=== PATIENT | male | born 1970 | race Caucasian/White ===

== ENCOUNTER 2023-03-24 23:29 | Inpatient (IN) | payer MEDICARE, MEDICAID, SELFPAY ==
--- OUTSIDE RECORDS SUMMARY | 2023-03-24 23:34 | XMS_ITS | Continuity of Care Document ---
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 Name Role Phone Not on Staff, PCP Primary Care Physician Unavail able Encounter [facility] [place] Date(s): 03/07/23 - 03/07/[address] [address]- Encounter Diagnosis Fall in shower(Final) - 03/07/23 Back pain(Final) - 03/07/23 Discharge Disposition: A-D/C Home Attending Physician: Leobardo Em MD Admitting Physician: Leobardo Em MD Referring Physician: Not on Staff, Referring MD Allergies, Adverse Reactions, Alerts Substance Reaction Severity Status Haldol Active Immunizations Given and Recorded Vaccine Date Status Refusal Reason influenza virus vaccine, inactivated 03/04/18 Marcello rded influenza virus vaccine, inactivated 12/12/15 Marcello rded influenza virus vaccine, inactivated 03/22/15 Marcello rded influenza virus vaccine, inactivated 03/07/14 Marcello rded influenza virus vaccine, inactivated 03/01/13 Marcello rded influenza virus vaccine, inactivated 01/14/11 Marcello rded tetanus/diphtheria/pertussis, acel(Tdap) 03/05/10 Recorded Medications Cymbalta 20 mg oral enteric coated capsule 1 capsule = 20 mg, By Mouth, 2 times a day, # 60 capsule, 5 Refills, Maintenance, 02/13/23 2:06:00 EST, EC Capsule, Partial fill upon patient request if the prescription is for a schedule II opioid drug. Start Date: 02/13/23 Status: Ordered diazepam 2 mg oral tablet 2 mg, 1, tablet, By Mouth, Daily, Refills 0, Maintenance, 01/06/23 22:08:00 EDT, Partial fill upon patient request if the prescription is for a schedule II opioid drug. Start Date: 01/06/23 Status: Ordered MorPHINE Inj 4 mg, Injection, IV Push Slowly, Every 5 minutes for 3 doses/times, PRN for Pain , Moderate, and SBP greater than 100, Routine, 03/07/23 6:18:00 EST, Stop date Limited # of times Start Date: 03/07/23 Stop Date: 03/07/23 Status: Discontinued multivitamin Therapeutic Multiple Vitamins oral tablet 1 tablet, By Mouth, Daily, # 30 tablet, 0 Refills, Maintenance, 03/25/22 11:18:00 EST, Tablet, [facility] #[id number], Partial fill upon patient request if the prescription is for a schedule II opioid drug., 1 tablet By Mouth Daily,x30 days, 188,... Start Date: 03/25/22 Stop Date: 04/24/22 Status: Ordered OxyCONTIN 10 mg oral tablet, extended release 10 mg, 1, tablet, By Mouth, Every 12 hours, # 28 tablet, Refills 0, Tot. Refills 0, Maintenance, 03/25/22 11:18:00 EST, Route to Pharmacy Electronically, [facility] #[id number], Partial fill upon patient request if the prescription is for a sched... Start Date: 03/25/22 Stop Date: 04/08/22 Status: Ordered SEROquel 100 mg oral tablet 100 mg, 1, tablet, By Mouth, Daily at bedtime, Refills 0, Maintenance, 02/14/23 8:45:00 EST, Partial fill upon patient request if the prescription is for a schedule II opioid drug. Start Date: 02/14/23 Status: Ordered zolpidem 10 mg oral tablet 1 tablet = 10 mg, By Mouth, Daily at bedtime, PRN as needed for insomnia, # 12 tablet, 0 Refills, Maintenance, 01/07/23 0:35:00 EDT, Tablet, [facility] #[id number], Partial fill upon patient request if the prescription is for a schedule II opioid... Start Date: 01/07/23 Status: Ordered Problem List Condition Confirmation Course Effective Dates Status Health St atus Informant Chronic back pain Confirmed Active Agitation Confirmed Active Parkinson disease Confirmed Active Trauma and stressor-related disorder Confirmed Active Suicidal ideation Confirmed 2017 Active Results Radiology Reports * Exam Date Time Procedure Performing Provider Status 03/07/23 8:[address] Thoracic Spine W/O Contrast Ashia Sandy; Auth (Verified) Notes: (CT Thoracic Spine W/O Contrast) Reason For Exam: Spine fracture, thoracic, traumatic;Other: RESULT: CT Thoracic Spine W/O Contrast CT Thoracic Spine W/O Contrast INDICATION: Fall in shower, hitting back. Has history of back injury. With new urinary incontinenceand L leg tingling; Reason: Spine fracture, thoracic, traumatic; Clinical Question(s): Fracture Dislocation TECHNIQUE: Noncontrast CT of the thoracic spine was performed. Bone and soft tissue algorithms werereconstructed along with coronal and sagittal computations. Weight-based protocol using automatic tube modulation was used to optimize exposure parameters. RADIATION DOSE PARAMETERS: CTDIvol Body: 12.40 mGy, DLP Body: 510 mGy*cm. COMPARISON: MRI thoracic spine 03/07/[address] abdomen/pelvis 03/30/2023 FINDINGS: Spine: No acute fractures or bone lesion. Mild chronic compression fracture of T6 vertebral body. The alignment is maintained. Mild multilevel degenerative changes of the visualized spine. Soft tissues: No acute abnormality in the paravertebral soft tissues. Mild curvilinear bibasilar atelectasis. Paraseptal emphysematous changes in both upper lobes. Minimal amount of residual contrast is seen within the bilateral collecting systems likely related to prior IV contrast administration for the MRI scan. IMPRESSION: Mild degenerative changes of the thoracic spine without evidence of an acute fracture. I have personally reviewed the images and I agree with this report. WSN: [id number] Ordering Physician: Michelle Wynne Dictated By: Courtney Segura DO Dictated Date/Time: 03/07/23 9:21 am Reviewed By: Robyn Schwab MD Signed By: Robyn Schwab MD Signed Date/Time: 03/07/23 9:26 am Transcribed By: DALI Transcribed Date/Time: 03/07/23 9:11 am * Exam Date Time Procedure Performing Provider Status 03/07/23 7:48 AM MRI Thoracic Spine W+W/O Contrast Soraida James; Auth (Verified) Notes: (MRI Thoracic Spine W+W/O Contrast) Reason For Exam: Cauda Equina Syndrome RESULT: MRI Thoracic Spine W+W/O Contrast MRI Thoracic Spine W+W/O Contrast INDICATION: Hx of Present Illness: fall in shower, hitting back. has history of back injury. how with new urinary incontinence and L leg tingling; Reason: Cauda Equina Syndrome; Clinical Question(s):Cord Cauda Equina Compression; Order Comment: Please see Reference Text for complete list of contraindications Cord/Cauda Equina Compression TECHNIQUE: MRI of the thoracic spine was performed with and without intravenous contrast utilizing sagittal T1, sagittal T2, sagittal STIR, axial T1, and axial T2-weighted sequences, and post-contrast sagittal T1 and axial T1-weighted sequences. 14 mL of Clariscan was administered intravenously. COMPARISON: Thoracic spine x-rays, 09/13/2020. Chest x-ray, 03/07/2023. FINDINGS: This exam is mildly degraded by motion. LOCALIZER: Whole spine sagittal T2 sequence was obtained. Alignment and curvature in the cervical spine is normal with high-grade canal stenosis or evidence of cord compression. In the lumbar spine postoperative changes are seen at L5-S1 from anterior fusion. There is no significant canal stenosis in the lumbar spine. ALIGNMENT, VERTEBRAE, MARROW, AND DISCS: There is mild chronic compression deformity of the superior endplate of T1 and T5. Remaining vertebral body heights are preserved. There is no subluxation. There is mild multilevel disc space narrowing. Benign hemangiomas are seen in the T4, T9, and T11 vertebral bodies. CORD: The thoracic cord is normal in signal and contour. There is no abnormal enhancement. PARASPINAL TISSUES: Surrounding thoracic soft tissues are unremarkable. There is a 1 cm left upper pole renal cyst noted. FINDINGS BY LEVEL: No significant central stenosis or neural foraminal narrowing is seen at any level in the thoracic spine. IMPRESSION: 1. No evidence of acute traumatic injury in the thoracic spine. There is no significant canal stenosis. Cord signal is normal throughout, and there is no abnormal enhancement. 2. Mild chronic T1 and T5 compression fractures are seen without retropulsion. WSN: [id number] Ordering Physician: Michelle Wynne Dictated By: Gia Cedeno MD Dictated Date/Time: 03/07/23 8:04 am Reviewed By: Gia Cedeno MD Signed By: Gia Cedeno MD Signed Date/Time: 03/07/23 8:04 am Transcribed By: DALI Transcribed Date/Time: 03/07/23 7:51 am * Exam Date Time Procedure Performing Provider Status 03/07/23 5:05 AM Chest 2 Views Fronta l and Lat Lainey Washington; Auth (Verified) Notes: (Chest 2 Views Frontal and Lat) Reason For Exam: Other: RESULT: Chest 2 Views Frontal and Lat Chest 2 Views Frontal and Lat INDICATION/CLINICAL QUESTION: Fell at home hitting back. Now most multiple posttraumatic complaints. TECHNIQUE: Frontal and lateral views of the chest. COMPARISON: 02/19/2023. FINDINGS: LINES AND TUBES: None. LUNGS AND PLEURA: RIGHT CHEST: The right lung is clear and there is no right effusion or pneumothorax. LEFT CHEST: The left lung is clear and there is no left effusion or pneumothorax. HEART, MEDIASTINUM AND JEFFREY: The heart is of normal size. The mediastinum and jeffrey are normal. BONES AND SOFT TISSUES: No acute bony abnormality. IMPRESSION: 1. No active disease in chest. WSN: [id number] Ordering Physician: Cyndy Brandon Dictated By: Camacho Ferrara MD Dictated Date/Time: 03/07/23 6:29 am Reviewed By: Camacho Ferrara MD Signed By: Camacho Ferrara MD Signed Date/Time: 03/07/23 6:29 am Transcribed By: DALI Transcribed Date/Time: 03/07/23 6:29 am Vital Signs Most recent to oldest [Reference Range]: 1 2 3 Oxygen Saturation [94-100 %] 98 % (03/07/23 11:30 AM) 100 % (03/07/23 8:53 AM) 98 % (03/07/23 8:24 AM) Pulse Rate [55-90 bpm] 71 bpm (03/07/23 11:30 AM) 75 bpm (03/07/23 8:53 AM) 78 bpm (03/07/23 4:35 AM) Blood Pressure [90-138/55-84 mm Hg] 125/77mm Hg (03/07/23 11:30 AM) 132/95mm Hg (03/07/23 8:53 AM) 148/104mm Hg *H* (03/07/23 4:35 AM) Respiratory Rate [16-30 br/min] 12 br/min *L* (03/07/23 11:30 AM) 16 br/min (03/07/23 8:53 AM) 18 br/min (03/07/23 8:24 AM) Temperature [96.8-100.4 DegF] 97.7 DegF (03/07/23 3:25 AM) Mode of Delivery (Oxygen) Room air (03/07/23 11:30 AM) Room air (03/07/23 8:53 AM) Room air (03/07/23 8:24 AM) Blood pressure sites Arm, right (03/07/23 11:30 AM) Arm, right (03/07/23 8:53 AM) Arm, right (03/07/23 4:35 AM) Temperature Route Oral (03/07/23 3:25 AM) Social History Social History Type Response Smoking Status 5-9 cigarettes (betw een 1/4 to 1/2 pack)/day in last 30 days; Interested in cessation: No; Patient wants NRT during admission Yes entered on: 03/19/22 Sex Male Note * Alvarez May DO: PERFORM Event Display: Patient Education Leaflets Authored Date: Back Bruise (Contusion) ?? [id number] Back Bruise (Contusion) You have a bruise (contusion) on your back. There is swelling and some bleeding under the skin. Theskin may be a purple color. You may have muscle aching and stiffness in the area of the bruise. There are no broken bones. Bruises heal on their own, without further treatment. But pain and skin discoloration may take weeks or months to go away.?? Home care ??? Rest. Don't do any heavy lifting, strenuous exercise, or any activity that causes pain. ??? Ice the area to reduce pain and swelling. To make an ice pack, put ice cubes in a plastic bagthat seals at the top. Wrap the bag in a clean, thin towel. Don't put ice or an ice pack directly on your skin. Ice the injured area for 20 minutes every 1 to 2 hours while you're awake for the firstday. Keep using ice packs 3 to 4 times a day for the next 2 days Then use as needed to ease pain and swelling. ??? Take any prescribed pain medicine. If none was prescribed, take acetaminophen,??ibuprofen,??or naproxen??to control pain, unless you have health conditions that prevent taking these medicines. If you are unsure about medicines, ask your healthcare provider before you leave the hospital. ?? Follow-up care Follow up with your healthcare provider, or as advised. Call if you are not better in 1 to 2 weeks. ?? When to get medical care Call your healthcare provider for any of the following: ??? New pain or pain that gets worse ??? Increased swelling around the bruise ??? Pain spreading to 1 or both legs ??? Blood in your pee (urine) ??? Fever of 100.4??F (38??C) or higher, or as advised by your provider ??? Chills ?? Call 911 Call 911 right away if any of these occur: ??? New weakness or numbness in 1 or both legs ??? Loss of bowel or bladder control ??? Numbness inthe groin or genital area ?? Last Reviewed Date: 2022 ?? 9290-2930 [employer]. All rights reserved. This information is not intended as a substitute for professional medical care. Always follow your healthcare professional's instructions. ?? * Alvarez May DO: PERFORM Event Display: Patient Education Leaflets Authored Date: [id number] After a Fall ?? 253599am After a Fall You have had a fall today. That means that you slipped, tripped, or lost your balance. If your fallwas because of fainting or a seizure,??you might need other??tests. It is normal to feel sore and tight in your muscles and back the next day, and not just the musclesyou injured. Remember, all the parts of your body are connected, so while one area hurts now, the next day another may hurt. Also, when you injure yourself, it causes inflammation. This then causes the muscles to tighten up and hurt more. After the initial worsening symptoms, they should slowly improve over the next few days. Tell your healthcare provider if you have more severe pain. Even without a definite head injury, you can still get a concussion from your head suddenly jerkingforward, backward, or sideways when you fall. This is especially true if you have had concussions in the past. Concussions and even bleeding can still happen, especially if you had a recent injury ortake blood thinner medicine. It is not unusual to have a mild headache and feel tired and even nauseous or dizzy.?? Home care ??? Rest today and return to your normal activities when you are feeling back to normal. ??? If you were injured during the fall, follow the advice from your healthcare provider about how to care for your injury. ??? At first, don't try to stretch out the sore spots. If there is a strain,stretching may make it worse. Massage may help relax the muscles without stretching them. ??? Use an ice pack or cold compress on and off at the sore spots for 10 to 20 minutes at a time, as often asyou feel comfortable. This may help reduce the inflammation, swelling, and pain. ??? Know that if you have any scrapes (abrasions), they often heal within??10 days. Keep the scrapes clean while they start to heal. But an infection may happen even with correct care. So watch for early signs of infection (such as warmth, redness, or swelling). ?? Medicines ??? Talk with your healthcare provider before taking new medicines, especially if you have other health problems or are taking other medicines. ??? If you need anything for pain, use acetaminophen or ibuprofen, unless you were given a different pain medicine to use.??Talk with your healthcare provider before using these medicines if you: o Have chronic liver or kidney disease o Ever hada stomach ulcer or??gastrointestinal bleeding o Are taking blood-thinner medicines ??? Be careful if you are given prescription pain medicines, narcotics, or medicine for muscle spasms. They can makeyou sleepy and dizzy. And they can affect your coordination, reflexes, and judgment. Don't drive ordo work where you can hurt yourself when taking them. ?? Fall prevention ??? Fix, remove, or replace anything that caused your fall. ??? Make your home safeby keeping walkways clear of objects you could trip over. ??? Use nonslip pads under rugs. Don't use small??area rugs or throw rugs. ??? Don't walk in poorly lit areas. ??? Don't stand on chairs or wobbly ladders. ??? Be careful when reaching overhead or looking upward. This position can cause a loss of balance. ??? Be sure your shoes fit correctly, have nonslip bottoms, and are in good condition. ??? Be careful when going up and down curbs, and walking on uneven sidewalks. ??? If your balance is poor, think about using a cane or walker. ??? Stay as active as you can. Balance, flexibility, strength, and endurance all come from exercise. They all play a role in preventing falls. ??? If you have pets, know where they are before you stand up or walk so you don't trip over them. ??? Limit alcohol intake. Alcohol can cause balance problems and increase the risk for falls. ??? Use night-lights. ??? Have your eyes tested to be sure you are seeing well, even if you already wear glasses.? Follow-up Follow up with your healthcare provider, or as advised. If X-rays or CT scans were done, you will be told if there is a change in the reading, especially if it affects treatment. ?? Call 911 Call 911 if any of these happen: ??? Trouble breathing ??? Confusion ??? Trouble waking up ??? Fainting or loss of consciousness ??? Fast or very slow heart rate ??? Seizure ??? Trouble with speech or vision, weakness of an arm or leg ??? Trouble walking or talking, loss of balance, numbness or weakness on one side of your body, or facial droop ?? When to get medical advice Call your healthcare provider right away if any of these happen: ??? Repeated falls, including falls that seem to happen for no reason ??? Dizziness ??? Severe headache ??? Blood in vomit or stools (look black or red in color) ?? Last Reviewed Date: 2022 ?? 3070-7080 [employer]. All rights reserved. This information is not intended as a substitute for professional medical care. Always follow your healthcare professional's instructions. ?? * Alvarez May DO: PERFORM Event Display: Patient Education Leaflets Authored Date: [id number] Fall??Prevention ?? [id number] Fall??Prevention Falls often take place due to slipping, tripping, or losing your balance. Millions of people fall every year and injure themselves.??Among older adults in the [place] falls are the most common cause oftraumatic brain injuries. Every 20 minutes, an older adult dies from a fall. Here are ways to reduce your risk of falling again: ??? Think about your fall. Was there anything that caused your fall that can be fixed, removed, or replaced? Make your home safe by keeping walkways clear of objects you may trip over, such as electrical cords. ??? Use nonslip pads under rugs. Don't use area rugs orsmall throw rugs. ??? Use nonslip mats in bathtubs and showers. ??? Hang grab rails by the toilet and inside and outside the shower. ??? Install handrails and lights on staircases. The handrails should be on both sides of the stairs. ??? Use night lights. ??? Don't walk in poorly lit areas. ??? Don't stand on chairs or wobbly ladders. ??? Use care when reaching overhead or looking up.??This position can cause a loss of balance. ??? Be sure your shoes fit well, are in good condition, and have non slip bottoms.? Wear shoes both inside and outside of your home. Don't go barefoot or wear slippers. ??? Be cautious when going up and down stairs, curbs, and when walking on uneven sidewalks. ??? If your balance is poor, consider using a cane or walker. Talk with your healthcare provider abouthaving a balance assessment. ??? If your fall was related to alcohol use, stop or limit alcohol intake.??Ask your provider for help if you think you may overuse alcohol and can't stop. ??? If your fall was related to use of sleeping medicines, talk with your provider about this.??You may need to reduce your dosage at bedtime if you wake up during the night to go to the bathroom.? To reducethe need for nighttime bathroom trips: o Don't drink fluids for several hours before going to bed oEmpty your bladder before going to bed o Men can keep a urinal at the bedside ??? Stay as active asyou can. Balance, flexibility, strength, and endurance all come from exercise. They all play a rolein preventing falls. Ask your provider which types of activity are right for you. Try to do some type of exercise every day. ??? Get your eyes checked once a year or more often if your vision changes??? If you have pets, know where they are before you stand up or walk so you don't trip over them. ??? Go over all your medicines with a pharmacist or other provider. This is to see if any of them could make you more likely to fall. Have this type of medicine review at least once every year. ??? Ifyour provider advises a new medicine, ask if the side effects will affect your balance. ??? Don't move quickly from one position to another. For instance, don't stand up fast from sitting. This can cause dizziness and may lead to a fall. ??? Sit down when putting on pants, socks, and shoes. This will make you less likely to lose your balance and fall. ??? Always let your provider know if you havefallen since your last visit. ??? Contact your provider right away if you're having balance problems or falling more often. Last Reviewed Date: 2021 ?? 0080-9354 [employer]. All rights reserved. This information is not intended as a substitute for professional medical care. Always follow your healthcare professional's instructions. ?? Patient Care team information Care Team Personnel Name: Preethi Jaramillo RN Position: [facility] RN Member Role: Primary Care Nurse Name: Thaddeus Ni RN Position: [facility] RN Member Role: Primary Care Nurse Name: Nuria Reyna RN Position: [facility] RN Member Role: Primary Care Nurse Name: Yesica Carmen RN Position: [facility] RN Member Role: Primary Care Nurse Name: Not on Staff, PCP Position: [facility] Physician (General Medicine) Member Role: PCP Name: Adriano Duque RN Position: [facility] RN Member Role: Primary Care Nurse Name: Shamika Carpenter RN Position: [facility] RN Member Role: Primary Care Nurse Name: Leobardo Em MD Position: [facility] ED Medicine MD Member Role: Admitting Physician Address: Address: [address] [place] [address] [place] [address]- Name: Shavon Monroy RN Position: [facility] ED RN W/OE and Tasks Member Role: Patient Care Provider Name: Elza Pickett Position: [facility] ED [facility] Name: Alvarez May DO Position: [facility] Resident Member Role: ED Resident Address: Address: [address] [place] [address] [place] [address]- Care Team Related Persons Name: ALISIA PARISH Address: home [address], [place] Name: ALLEN PARISH Address: home [address] [place] [address]
--- OUTSIDE RECORDS SUMMARY | 2023-03-24 23:34 | XMS_ITS | Continuity of Care Document ---
Author Name Unknown Organization [facility] ter Address [address] [place] [id number] Care Team Providers Care Rpg Programmer Name Role Phone Not on Staff, PCP Primary Care Physician Unavail able Encounter [facility] [place] Date(s): 03/28/22 - 03/29/[address] [address]- Discharge Disposition: A-D/C Home Attending Physician: Joselyn Hinson MD Admitting Physician: John Denton MD Referring Physician: Not on Staff, Referring MD Allergies, Adverse Reactions, Alerts No Known Allergies Immunizations Given and Recorded Vaccine Date Status Refusal Reason influenza virus vaccine, inactivated 03/04/18 Marcello rded influenza virus vaccine, inactivated 12/12/15 Marcello rded influenza virus vaccine, inactivated 03/22/15 Marcello rded influenza virus vaccine, inactivated 03/07/14 Marcello rded influenza virus vaccine, inactivated 03/01/13 Marcello rded influenza virus vaccine, inactivated 01/14/11 Marcello rded tetanus/diphtheria/pertussis, acel(Tdap) 03/05/10 Recorded Not Given Vaccine Date Status Refusal Reason influenza virus vaccine, inactivated 1 03/21/22 No t Given Patient Refuses 1Result Comment: Pt. states he had it with a previous provider. Medications acetaminophen 325 mg oral tablet 650 mg, 2, tablet, By Mouth, Every 6 hours, PRN, for 14 days, /Headache, # 112 tablet, Refills 0, Tot. Refills 0, Acute 04/08/22 11:17:00 EST, Pain , Mild, 03/25/22 11:17:00 EST, Route to Pharmacy Electronically, [facility] #[id number], Partial f... Start Date: 03/25/22 Stop Date: 04/08/22 Status: Ordered diazepam 5 mg oral tablet 5 mg, 1, tablet, By Mouth, Daily, for 30 days, # 30 tablet, Refills 0, Tot. Refills 0, Acute 04/24/22 11:17:00 EST, 03/25/22 11:17:00 EST, Route to Pharmacy Electronically, [facility] #[id number], Partial fill upon patient request if the prescrip... Start Date: 03/25/22 Stop Date: 04/24/22 Status: Ordered lidocaine 5% topical film See Instructions, Topically Daily over bottom rib over left side abdomen. remove patches after 12 hours, # 16 patch, 0 Refills, Acute 04/08/22 11:18:00 EST, 03/25/22 11:18:00 EST, Patch, [facility] #[id number], Partial fill upon patient request... Start Date: 03/25/22 Stop Date: 04/08/22 Status: Ordered multivitamin Therapeutic Multiple Vitamins oral tablet 1 tablet, By Mouth, Daily, # 30 tablet, 0 Refills, Maintenance, 03/25/22 11:18:00 EST, Tablet, [facility] #[id number], Partial fill upon patient request if the prescription is for a schedule II opioid drug., 1 tablet By Mouth Daily,x30 days, 188,... Start Date: 03/25/22 Stop Date: 04/24/22 Status: Ordered Nicotine 2 mg gum = 2 mg, Chew, Every 15 minutes, PRN Other, for 2 week(s), cigarette craving, # 10 each, 0 Refills, Acute 04/08/22 11:18:00 EST, 03/25/22 11:18:00 EST, Gum, [facility] #[id number], Partial fill upon patient request if the prescription is for a vasyl... Start Date: 03/25/22 Stop Date: 04/08/22 Status: Ordered oxyCODONE 5 mg oral tablet 5 mg, 1, tablet, By Mouth, Every 4 hours, PRN, for 10 days, # 60 tablet, Refills 0, Tot. Refills 0,Acute 04/04/22 11:18:00 EST, Pain , Moderate, 03/25/22 11:18:00 EST, Route to Pharmacy Electronically, [facility] #[id number], Partial fill upon p... Start Date: 03/25/22 Stop Date: 04/04/22 Status: Ordered oxyCODONE 5 mg oral tablet 5 mg, Tablet, By Mouth, Every 4 hours, PRN for Pain , Severe, Routine, 03/29/22 6:12:00 EST Start Date: 03/29/22 Stop Date: 03/29/22 Status: Discontinued OxyCONTIN 10 mg oral tablet, extended release 10 mg, 1, tablet, By Mouth, Every 12 hours, # 28 tablet, Refills 0, Tot. Refills 0, Maintenance, 03/25/22 11:18:00 EST, Route to Pharmacy Electronically, [facility] #[id number], Partial fill upon patient request if the prescription is for a sched... Start Date: 03/25/22 Stop Date: 04/08/22 Status: Ordered QUEtiapine 100 mg oral tablet 100 mg, 1, tablet, By Mouth, Daily at bedtime, # 30 tablet, Refills 0, Tot. Refills 0, Maintenance,03/25/22 11:20:00 EST, Route to Pharmacy Electronically, [facility] #[id number], Partial fill upon patient request if the prescription is for a sc... Start Date: 03/25/22 Stop Date: 04/24/22 Status: Ordered QUEtiapine 50 mg oral tablet 1 tablet = 50 mg, By Mouth, 2 times a day, # 60 tablet, 0 Refills, Maintenance, 03/25/22 11:22:00 EST, Tablet, [facility] #[id number], Partial fill upon patient request if the prescription is for a schedule II opioid drug., 188, cm, 03/25/22 8:21... Start Date: 03/25/22 Stop Date: 04/24/22 Status: Ordered SEROquel 25 mg oral tablet 25 mg, 1, tablet, By Mouth, 3 times a day, PRN, # 90 tablet, Refills 0, Tot. Refills 0, Maintenance, Anxiety, 03/25/22 11:20:00 EST, Route to Pharmacy Electronically, [facility] #[id number], Partial fill upon patient request if the prescription i... Start Date: 03/25/22 Stop Date: 04/24/22 Status: Ordered Problem List Condition Confirmation Course Effective Dates Status Health St atus Informant Chronic back pain Confirmed Active Agitation Confirmed Active Parkinson disease Confirmed Active Trauma and stressor-related disorder Confirmed Active Suicidal ideation Confirmed 2017 Active Results Radiology Reports * Exam Date Time Procedure Performing Provider Status 03/28/22 10:[address] Head/Brain W/O Contrast Nathalie Streeter; Madie (Verified) Notes: (CT Head/Brain W/O Contrast) Reason For Exam: Behavior Problem RESULT: CT Head/Brain W/O Contrast CT Head/Brain W/O Contrast Hx of Present Illness: AMS since d c from hospital per sig other, confusion and unsteadiness.; Reason: Behavior Problem; Clinical Question(s): Hematoma. TECHNIQUE: Noncontrast head CT using axial technique and reconstructed in axial and coronal planes.Weight-based protocol using automatic tube modulation was used to optimize exposure parameters. CTDIvol Head: 47.30 mGy, DLP Head: 772 mGy*cm. COMPARISON: 01/12/2022. FINDINGS: BRAIN and EXTRA-AXIAL SPACES: No parenchymal hemorrhage, midline shift or mass effect. Mario-white matter differentiation is well preserved. No acute infarct. Negative insular ribbon and hyperdense vessel signs. Ventricles, sulci and basilar cisterns are normal. There is a stable 1.7 cm arachnoid cyst in the posterior fossa, unchanged since at least 2018. Mild low-density white matter changes. No subarachnoid hemorrhage, subdural or epidural collections. CALVARIUM, SKULL BASE AND SOFT TISSUES: No fractures or suspicious bony lesions. The paranasal sinuses and mastoid air cells are clear. Visualized orbits and globes are intact. The extracranial soft tissues are unremarkable. IMPRESSION: No acute intracranial abnormality. I have personally reviewed the images and I agree with this report. WSN: [id number] Ordering Physician: Lani Hansen Dictated By: Cherrie Linda DO Dictated Date/Time: 03/28/22 10:55 p Reviewed By: Luli Urban MD Signed By: Luli Urban MD Signed Date/Time: 03/28/22 11:00 pm Transcribed By: DALI Transcribed Date/Time: 03/28/22 10:47 pm Vital Signs Most recent to oldest [Reference Range]: 1 2 3 Oxygen Saturation [94-100 %] 97 % (03/29/22 1:05 PM) 96 % (03/29/22 9:59 AM) 100 % (03/29/22 6:17 AM) Pulse Rate [55-90 bpm] 86 bpm (03/29/22 1:05 PM) 88 bpm (03/29/22 9:59 AM) 92 bpm *H* (03/29/22 6:17 AM) Blood Pressure [90-138/55-84 mm Hg] 111/93mm Hg (03/29/22 1:05 PM) 119/77mm Hg (03/29/22 9:59 AM) 118/72mm Hg (03/29/22 6:17 AM) Respiratory Rate [16-30 br/min] 18 br/min (03/29/22 1:05 PM) 18 br/min (03/29/22 10:02 AM) 18 br/min (03/29/22 6:17 AM) Temperature [96.8-100.4 DegF] 98.7 DegF (03/29/22 1:05 PM) 98.5 DegF (03/29/22 9:59 AM) 98.2 DegF (03/29/22 6:17 AM) Mode of Delivery (Oxygen) Room air (03/29/22 1:05 PM) Room air (03/29/22 9:59 AM) Room air (03/29/22 6:17 AM) Blood pressure sites Arm, right (03/29/22 1:05 PM) Arm, left (03/29/22 9:59 AM) Arm, right (03/29/22 6:17 AM) Temperature Route Oral (03/29/22 9:59 AM) Oral (03/29/22 6:17 AM) Oral (03/29/22 1:14 AM) Social History Social History Type Response Smoking Status 5-9 cigarettes (betw een 1/4 to 1/2 pack)/day in last 30 days; Interested in cessation: No; Patient wants NRT during admission Yes entered on: 03/19/22 Sex Admission evaluation note * Gee HARKINS, Vijay: PERFORM Event Display: Admission Note Authored Date: [id number] Patient: ??BOBBY ARMANDO ? Age:??51 Years?Sex:??Male?:??1970?? Chief Complaint/Reason for Consultation Altered mental status History of Present Illness Patient is a 51 years old male with past medical history of depression, Parkinson disease,??stress related disorder, anxiety??presented to ER with a chief complaint of altered mental status. ? Patient reported that he was feeling tired and on edema and therefore, he decided come to the ER.??The patient denying any complaints of abdominal pain, chest pain, shortness of breath, nausea, vomiting. ? However, as per ER note??patient was brought to the ER by girlfriend??as patient was not acting himself.?? ER provided??noticed that patient??is not answering appropriately??and having pressured speech. ??However upon my eval, patient is alert, awake, oriented x3, answers all pretty appropriately,??told me about his past history as well??and does not appear to be confused or agitated or altered. ? To note,??patient was discharged from the psych unit at [facility]??3 days ago after being admitted and treated for??depression. Review of Systems All Pertinent negative and positives are noted in HPI. ??All other systems were reviewed and are negative Objective ? Vital Signs?? Temperature: 97.5 DegF (03/29/22 01:14:00) Temperature Route: Oral (03/29/22 01:14:00) Pulse Rate: 74 bpm (03/29/22 01:14:00) Respiratory Rate: 19 br/min (03/29/22 01:14:00) Systolic Blood Pressure: 135 mm Hg (03/29/22 01:14:00) Diastolic Blood Pressure:??91 mm Hg??High (03/29/22 01:14:00) Blood pressure sites: Arm, right (03/28/22 19:33:00) Mean Arterial Pressure: 106 mm Hg (03/29/22 01:14:00) Pulse Pressure: 44 mm Hg (03/29/22 01:14:00) Oxygen Saturation: 94 % (03/29/22 01:14:00) Mode of Delivery (Oxygen): Room air (03/29/22 01:14:00) Early Warning Score: 4 (03/29/22 01:15:04) ? Physical Exam Constitutional: Alert, in no acute distress. Head: Normocephalic. ?? Eyes: Pupils are equal, round and reactive to light. Extraocular muscles intact. No pallor or scleral icterus ?? Ear, Nose and Throat: mucous membranes??dry, Ears and nose - no obvious deformities. Trachea midline. ?? Neck: Supple, Full range of motion.No JVD or bruits. Respiratory:??Clear to auscultation. No wheezing or rhonchi.??No use of accessory muscles. No tactile fremitus.?? Cardiovascular:??PMI not visible. S1 S2 regular. No murmurs, rubs or gallops. Gastrointestinal:??Abdomen soft, non-tender, non-distended. Normal bowel sounds. No pulsatile mass.No hepatosplenomegaly. Genitourinary:??No costovertebral angle tenderness. Extremities: No lower extremity pitting edema. No cyanosis or clubbing. Neurologic:??AAOx3, Cranial nerves II-XII grossly intact. Speech normal, no facial droop. No focal neurological deficits. Moves all extremities spontaneously. Sensation intact bilaterally.??Flexor plantar response Skin:??No rash.?? Musculoskeletal:??No gross deformities on inspection. Normal range of motion in hips, knees, ankles.? .??Muscle strength within normal limits Heme/Lymphatics:??Palpation of neck reveals no swelling or tenderness of neck nodes.?? Psychiatric: Appeared sad, Assessment/Plan Diagnoses 1. ??Delirium ??(R41.0) 2. ??Depression ??(F32.A) 3. ??Parkinson disease ??(G20) 4. ??Chronic back pain ??(M54.9) 5. ??Trauma and stressor-related disorder ??(F43.9) ?? Assessment:??The patient is a 51 years old male who presented to ER with a chief complaint of altered mental status.??Patient was altered in the ER as per ER note and therefore admitted for further management. However, upon my eval, patient is not altered but totally alert awake and oriented and following all the commands, answering all questions appropriately. ?? Delirium (R41.0):??Resolved Patient presented Alterman status as per ER note, patient was??speaking quietly and not answering question appropriately. However upon admission, patient totally alert, awake, oriented x3, answering all questions appropriately, following all the commands CT head negative,??alcohol level??negative, ordered U tox Patient is back to baseline ?? Depression (F32.A):??Patient was recently discharged from [facility] [place]??after being??admitted and treated for depression Patient did not answer homicidal/suicidal ideation question and became angry and reported that he is??trying to rest??and have some decorum Home medications Seroquel??resumed ?? Parkinson disease (G20):??Patient used to be on Sinemet but??developed side effects including high blood pressure and therefore it was discontinued for last admission ?? Chronic back pain (M54.9):??Resume home medication??count on??10 mg every 12 hours and oxycodone 5 mg every 4 hours as needed ?? Trauma and stressor-related disorder (F43.9):??Resume home medication diazepam 5 mg daily, [id number] mg twice daily,??100 mg??at bedtime and??as needed Seroquel dose as well ?? VTE Prophylaxis:??SCDs ?VTE Prophylaxis Assessment:??VTE Prophylaxis Ordered ?? Code Status:??Full code ?Order Code Status:??Code Status Ordered ?? Ongoing Medical Necessity:??Delirium ?? Discharge Planning:??Discharge in next 24 hours ? Date of service: March 29, 2022 Histories Allergies Allergies ?(Active and Proposed Allergies Only) NKA? (Severity: Unknown severity, Onset: Unknown) ? Past Medical History/Problem List Active Problems??(5) Agitation Chronic back pain Parkinson disease Suicidal ideation Trauma and stressor-related disorder ? Past Surgical History Laparoscopic appendectomy: 04/10/17 ? Social History Alcohol Details:??Use: Current. ??Frequency: 1-2 times per month. Tobacco Details:??Use: 5-9 cigarettes (between 1/4 to 1/2 pack)/day in last 30 days. ??Interested in cessation: No. ??Yes Details:??Current every day smoker ? Family History No family history??of premature CAD ? Medications Home Medications Acetaminophen (acetaminophen 325 mg oral tablet)?650?Milligram?2?tablet?By Mouth?Every 6 hours?as needed?for 14?Days?/Headache?Pain , Mild Diazepam (diazepam 5 mg oral tablet)?5?Milligram?1?tablet?By Mouth?Daily?for 30?Days Lidocaine Topical (lidocaine 5% topical film)?See Instructions?Topically Daily over bottom rib over left side abdomen.remove patches after 12 hours Multivitamin (multivitamin Therapeutic Multiple Vitamins oral tablet)?1?tab(s)?By Mouth?Daily?for 30?Days Nicotine (Nicotine 2 mg gum)?2?Milligram?Chew?Every 15 minutes?as needed?Other?for 2?week(s)?cigarette craving Oxycodone (OxyCONTIN 10 mg oral tablet, extended release)?10?Milligram?1?tablet?By Mouth?Every 12 hours?for 14?Days Oxycodone (oxyCODONE 5 mg oral tablet)?5?Milligram?1?tablet?By Mouth?Every 4 hours?as needed?for 10?Days?Pain , Moderate Quetiapine (QUEtiapine 100 mg oral tablet)?100?Milligram?1?tablet?By Mouth?Daily at bedtime?for 30?Days Quetiapine (SEROquel 25 mg oral tablet)?25?Milligram?1?tablet?By Mouth?3 times a day?as needed?for 30?Days?Anxiety Quetiapine (QUEtiapine 50 mg oral tablet)?1?tab(s)?50?Milligram?By Mouth?2 times a day?for 30?Days ? Results Recent Labs BLOOD COUNT & DIFF WBC 10.2 k/mm3 ()?? 03/28/2022 20:10 RBC 3.31 m/mm3 (Low)?? 03/28/2022 20:10 Hgb 9.2 Gm/dL (Low)?? 03/28/2022 20:10 Hct 29.6 % (Low)?? 03/28/2022 20:10 MCV 89.4 femtoliters ()?? 03/28/2022 20:10 MCH 27.8 pg ()?? 03/28/2022 20:10 MCHC 31.1 g/dL (Low)?? 03/28/2022 20:10 Platelet Count 344 k/mm3 ()?? 03/28/2022 20:10 RDW-SD 46.3 femtoliters ()?? 03/28/2022 20:10 MPV 9.5 femtoliters ()?? 03/28/2022 20:10 Nucleated RBC (Automated) 0.0 #/100 WBC'S ()?? 03/28/2022 20:10 Abs. NRBC 0.0 k/mm3 ()?? 03/28/2022 20:10 Abs. Neut 8.6 k/mm3 (High)?? 03/28/2022 20:10 Abs. Lymph 0.7 k/mm3 (Low)?? 03/28/2022 20:10 Abs. Trimble 0.8 k/mm3 ()?? 03/28/2022 20:10 Abs. Eo 0.1 k/mm3 ()?? 03/28/2022 20:10 Abs. Baso 0.0 k/mm3 ()?? 03/28/2022 20:10 Neut % 83.9 % (High)?? 03/28/2022 20:10 Lymph % 6.9 % (Low)?? 03/28/2022 20:10 Trimble % 7.5 % ()?? 03/28/2022 20:10 Eos % 1.2 % ()?? 03/28/2022 20:10 Baso % 0.2 % ()?? 03/28/2022 20:10 Imm Gran 0.3 % ()?? 03/28/2022 20:10 Abs. Imm Gran 0.0 k/mm3 ()?? 03/28/2022 20:10 ?? CHEM GENERAL Sodium 142 mmol/L ()?? 03/28/2022 20:10 Potassium 4.5 mmol/L ()?? 03/28/2022 20:10 Chloride 102 mmol/L ()?? 03/28/2022 20:10 Bicarbonate Level 29 mmol/L ()?? 03/28/2022 20:10 Anion Gap 11 ()?? 03/28/2022 20:10 Glucose Level 102 mg/dL (High)?? 03/28/2022 20:10 BUN 26 mg/dL (High)?? 03/28/2022 20:10 Creatinine-Blood 0.8 mg/dL ()?? 03/28/2022 20:10 Estimated GFR Creatinine 107 ML/MIN/1.73 M2 ()?? 03/28/2022 20:10 Calcium 9.1 mg/dL ()?? 03/28/2022 20:10 Magnesium 2.1 mg/dL ()?? 03/28/2022 20:10 Protein, Total 6.6 Gm/dL ()?? 03/28/2022 20:10 Albumin 4.0 Gm/dL ()?? 03/28/2022 20:10 AG Ratio 1.5 ()?? 03/28/2022 20:10 Alkaline Phosphatase 68 units/L ()?? 03/28/2022 20:10 Lipase 10 units/L (Low)?? 03/28/2022 20:10 AST (SGOT) 16 units/L ()?? 03/28/2022 20:10 ALT (SGPT) 23 units/L ()?? 03/28/2022 20:10 Bilirubin, Total 0.2 mg/dL ()?? 03/28/2022 20:10 ?? ENDOCRINE/TUMOR MARKER TSH 1.28 uIU/mL ()?? 03/28/2022 20:10 ?? TOXICOLOGY/TDM Ethanol, Serum or Plasma NONE DETECTED mg/dL ()?? 03/28/2022 20:10 Salicylate Level <0.3 mg/dL (Low)?? 03/28/2022 20:10 Acetaminophen Level <5 mg/L (Low)?? 03/28/2022 20:10 ?? VIROLOGY Influenza A PCR NEGATIVE ()?? 03/28/2022 20:15 Influenza B PCR NEGATIVE ()?? 03/28/2022 20:15 RSV PCR NEGATIVE ()?? 03/28/2022 20:15 COVID-19 PCR Specimen Source NASAL ()?? 03/28/2022 20:15 COVID-19 PCR Result NEGATIVE ()?? 03/28/2022 20:15 ? Coagulation Profile?? No qualifying data available. ?? Note * Joya HARKINS, Joselyn M: PERFORM Event Display: Discharge/Transfer Note Hospital Authored Date: Patient: ??BOBBY ARMANDO ? Age:??51 Years?Sex:??Male?:??1970?? Patient Information Discharge Location: [facility] Primary Care Physician: Not on Staff, PCP Admit Date/Time: 03/28/22 18:22 Discharge Disposition Discharge Disposition: ?? Discharge Diagnosis Delirium (R41.0) Depression (F32.A) Parkinson disease (G20) Chronic back pain (M54.9) Trauma and stressor-related disorder (F43.9) ?? _ Discharge Medications Acetaminophen (acetaminophen 325 mg oral tablet)?650?Milligram?2?tablet?By Mouth?Every 6 hours?as needed?for 14?Days?/Headache?Pain , Mild Diazepam (diazepam 5 mg oral tablet)?5?Milligram?1?tablet?By Mouth?Daily?for 30?Days Lidocaine Topical (lidocaine 5% topical film)?See Instructions?Topically Daily over bottom rib over left side abdomen.remove patches after 12 hours Multivitamin (multivitamin Therapeutic Multiple Vitamins oral tablet)?1?tab(s)?By Mouth?Daily?for 30?Days Nicotine (Nicotine 2 mg gum)?2?Milligram?Chew?Every 15 minutes?as needed?Other?for 2?week(s)?cigarette craving Oxycodone (OxyCONTIN 10 mg oral tablet, extended release)?10?Milligram?1?tablet?By Mouth?Every 12 hours?for 14?Days Oxycodone (oxyCODONE 5 mg oral tablet)?5?Milligram?1?tablet?By Mouth?Every 4 hours?as needed?for 10?Days?Pain , Moderate Quetiapine (QUEtiapine 100 mg oral tablet)?100?Milligram?1?tablet?By Mouth?Daily at bedtime?for 30?Days Quetiapine (SEROquel 25 mg oral tablet)?25?Milligram?1?tablet?By Mouth?3 times a day?as needed?for 30?Days?Anxiety Quetiapine (QUEtiapine 50 mg oral tablet)?1?tab(s)?50?Milligram?By Mouth?2 times a day?for 30?Days ? Allergies Allergies ?(Active and Proposed Allergies Only) NKA? (Severity: Unknown severity, Onset: Unknown) ? Hospital Course Admitted and discharged same day Pl see H & P Brought to ER for AMS On admission there was no altered mental status Pl see H & P He is positive for marijuana which could have caused temporary mental status change Denies SI ?? He is being discharged home in a stable condition ?? Will continue home meds ?? Objective Assessment and Plan Discharge Planning:? Vital Signs?? Temperature: 98.5 DegF (03/29/22 09:59:00) Temperature Route: Oral (03/29/22 09:59:00) Pulse Rate: 88 bpm (03/29/22 09:59:00) Respiratory Rate: 18 br/min (03/29/22 10:02:00) Systolic Blood Pressure: 119 mm Hg (03/29/22 09:59:00) Diastolic Blood Pressure: 77 mm Hg (03/29/22 09:59:00) Blood pressure sites: Arm, left (03/29/22 09:59:00) Mean Arterial Pressure: 87 mm Hg (03/29/22 06:17:00) Pulse Pressure: 42 mm Hg (03/29/22 09:59:00) Oxygen Saturation: 96 % (03/29/22 09:59:00) Mode of Delivery (Oxygen): Room air (03/29/22 09:59:00) Early Warning Score: 0 (03/29/22 10:06:59) ? . Physical Exam Pending Results Add On Lab Order ordered on 03/28/2022 Add On Lab Order ordered on 03/28/2022 Amphetamine Urine Screen ordered on 03/28/2022 Benzodiazepine Urine Screen ordered on 03/28/2022 Cannabinoid Urine Screen ordered on 03/28/2022 Cocaine Urine Screen ordered on 03/28/2022 Opiate Screen Urine ordered on 03/28/2022 Urinalysis w/hold for Urine Culture ordered on 03/28/2022 Follow-Up Appointments Added Follow Up ?Time Frame ?Comments Not on Staff, PCP?5 to 7 days Post Discharge Care Discharge ?03/29/22 12:43:00 EST Discharge Prescriptions ?None, ??03/29/22 12:43:00 EST Home Health Face to Face ^[facility] Results Discharge Labs BLOOD COUNT & DIFF WBC 10.2 k/mm3 ()?? 03/28/2022 20:10 RBC 3.31 m/mm3 (Low)?? 03/28/2022 20:10 Hgb 9.2 Gm/dL (Low)?? 03/28/2022 20:10 Hct 29.6 % (Low)?? 03/28/2022 20:10 MCV 89.4 femtoliters ()?? 03/28/2022 20:10 MCH 27.8 pg ()?? 03/28/2022 20:10 MCHC 31.1 g/dL (Low)?? 03/28/2022 20:10 Platelet Count 344 k/mm3 ()?? 03/28/2022 20:10 RDW-SD 46.3 femtoliters ()?? 03/28/2022 20:10 MPV 9.5 femtoliters ()?? 03/28/2022 20:10 Nucleated RBC (Automated) 0.0 #/100 WBC'S ()?? 03/28/2022 20:10 Abs. NRBC 0.0 k/mm3 ()?? 03/28/2022 20:10 Abs. Neut 8.6 k/mm3 (High)?? 03/28/2022 20:10 Abs. Lymph 0.7 k/mm3 (Low)?? 03/28/2022 20:10 Abs. Trimble 0.8 k/mm3 ()?? 03/28/2022 20:10 Abs. Eo 0.1 k/mm3 ()?? 03/28/2022 20:10 Abs. Baso 0.0 k/mm3 ()?? 03/28/2022 20:10 Neut % 83.9 % (High)?? 03/28/2022 20:10 Lymph % 6.9 % (Low)?? 03/28/2022 20:10 Trimble % 7.5 % ()?? 03/28/2022 20:10 Eos % 1.2 % ()?? 03/28/2022 20:10 Baso % 0.2 % ()?? 03/28/2022 20:10 Imm Gran 0.3 % ()?? 03/28/2022 20:10 Abs. Imm Gran 0.0 k/mm3 ()?? 03/28/2022 20:10 ?? CHEM GENERAL Sodium 142 mmol/L ()?? 03/28/2022 20:10 Potassium 4.5 mmol/L ()?? 03/28/2022 20:10 Chloride 102 mmol/L ()?? 03/28/2022 20:10 Bicarbonate Level 29 mmol/L ()?? 03/28/2022 20:10 Anion Gap 11 ()?? 03/28/2022 20:10 Glucose Level 102 mg/dL (High)?? 03/28/2022 20:10 BUN 26 mg/dL (High)?? 03/28/2022 20:10 Creatinine-Blood 0.8 mg/dL ()?? 03/28/2022 20:10 Estimated GFR Creatinine 107 ML/MIN/1.73 M2 ()?? 03/28/2022 20:10 Calcium 9.1 mg/dL ()?? 03/28/2022 20:10 Magnesium 2.1 mg/dL ()?? 03/28/2022 20:10 Protein, Total 6.6 Gm/dL ()?? 03/28/2022 20:10 Albumin 4.0 Gm/dL ()?? 03/28/2022 20:10 AG Ratio 1.5 ()?? 03/28/2022 20:10 Alkaline Phosphatase 68 units/L ()?? 03/28/2022 20:10 Lipase 10 units/L (Low)?? 03/28/2022 20:10 AST (SGOT) 16 units/L ()?? 03/28/2022 20:10 ALT (SGPT) 23 units/L ()?? 03/28/2022 20:10 Bilirubin, Total 0.2 mg/dL ()?? 03/28/2022 20:10 ? ENDOCRINE/TUMOR MARKER TSH 1.28 uIU/mL ()?? 03/28/2022 20:10 ? TOXICOLOGY/TDM Ethanol, Serum or Plasma NONE DETECTED mg/dL ()?? 03/28/2022 20:10 Salicylate Level <0.3 mg/dL (Low)?? 03/28/2022 20:10 Cannabinoid Screen, Urine POSITIVE (Abnormal)?? 03/29/2022 06:02 Cocaine Metabolite Screen, Urine NONE DETECTED ()?? 03/29/2022 06:02 Benzodiazepine Screen, Urine POSITIVE (Abnormal)?? 03/29/2022 06:02 Amphetamine Screen, Urine NONE DETECTED ()?? 03/29/2022 06:02 Opiate Screen, Urine NONE DETECTED ()?? 03/29/2022 06:02 PCP Screen, Urine NONE DETECTED ()?? 03/29/2022 06:02 Acetaminophen Level <5 mg/L (Low)?? 03/28/2022 20:10 ? VIROLOGY Influenza A PCR NEGATIVE ()?? 03/28/2022 20:15 Influenza B PCR NEGATIVE ()?? 03/28/2022 20:15 RSV PCR NEGATIVE ()?? 03/28/2022 20:15 COVID-19 PCR Specimen Source NASAL ()?? 03/28/2022 20:15 COVID-19 PCR Result NEGATIVE ()?? 03/28/2022 20:15 ? Microbiology ?? COVID-19, RSV, and Flu A/B, Rapid PCR?? Completed?? Source: Nasal Body Site: Nose Collected Dt/Tm: 03/28/2022 19:50 Last Updated Dt/Tm: 03/28/2022 21:17 ? _ minutes spent on discharge * Event Display: Discharge/Transfer Note Hospital Authored Date: CT Head WO contrast * BHSPowerscribe , CIS S: TRANSCRIBE Rajni HARKINS, Devrim: VERIFY Cherrie Linda DO: SIGN Event Display: Result: Authored Date: [id number] CT Head/Brain W/O Contrast Hx of Present Illness: AMS since d c from hospital per sig other, confusion and unsteadiness.; Reason: Behavior Problem; Clinical Question(s): Hematoma. TECHNIQUE: Noncontrast head CT using axial technique and reconstructed in axial and coronal planes.Weight-based protocol using automatic tube modulation was used to optimize exposure parameters. CTDIvol Head: 47.30 mGy, DLP Head: 772 mGy*cm. COMPARISON: 01/12/2022. FINDINGS: BRAIN and EXTRA-AXIAL SPACES: No parenchymal hemorrhage, midline shift or mass effect. Mario-white matter differentiation is well preserved. No acute infarct. Negative insular ribbon and hyperdense vessel signs. Ventricles, sulci and basilar cisterns are normal. There is a stable 1.7 cm arachnoid cyst in the posterior fossa, unchanged since at least 2017. Mild low-density white matter changes. No subarachnoid hemorrhage, subdural or epidural collections. CALVARIUM, SKULL BASE AND SOFT TISSUES: No fractures or suspicious bony lesions. The paranasal sinuses and mastoid air cells are clear. Visualized orbits and globes are intact. The extracranial soft tissues are unremarkable. IMPRESSION: No acute intracranial abnormality. I have personally reviewed the images and I agree with this report. WSN: [id number] Ordering Physician: Lani Hansen Dictated By: Cherrie Linda DO Dictated Date/Time: 03/28/22 10:55 p Reviewed By: Luli Urban MD Signed By: Luli Urban MD Signed Date/Time: 03/28/22 11:00 pm Transcribed By: DALI Transcribed Date/Time: 03/28/22 10:47 pm Patient Care team information Care Team Personnel Name: Preethi Jaramillo RN Position: [facility] RN Member Role: Primary Care Nurse Name: Nuria Reyna RN Position: [facility] RN Member Role: Primary Care Nurse Name: Yesica Carmen RN Position: S RN Member Role: Primary Care Nurse Name: Not on Staff, PCP Position: [facility] Physician (General Medicine) Member Role: PCP Name: Adriano Duque RN Position: S RN Member Role: Primary Care Nurse Name: Shamika Carpenetr RN Position: [facility] RN Member Role: Primary Care Nurse Name: *Velia PROCTOR Attending Position: [facility] ED Medicine MD Name: Codie Leon Position: [facility] ED [facility] Member Role: Manager Product Name: Oneil Araiza RN Position: [facility] ED RN W/OE and Tasks Member Role: Patient Care Provider Name: Nathalie Amador RN Position: [facility] ED RN W/OE and Tasks Member Role: Patient Care Provider Care Team Related Persons Name: JEM ALISIA Address: [address] [address]
--- OUTSIDE RECORDS SUMMARY | 2023-03-24 23:34 | XMS_ITS | Continuity of Care Document ---
Author Name Unknown Organization [facility] ter Address [address] [place] [address]- Care Team Providers Care Junior Business Analyst Name Role Phone Not on Staff, PCP Primary Care Physician Unavail able Encounter [facility] [place] Date(s): 03/10/23 - 03/10/[address] [address]- Encounter Diagnosis Parkinson disease(Final) - 03/11/23 Arm weakness(Final) - 03/11/23 Discharge Disposition: A-D/C Home Attending Physician: Jersey Morris MD Admitting Physician: Jersey Morris MD Referring Physician: Not on Staff, Referring [...] opioid drug. Start Date: 01/06/23 Status: Ordered multivitamin Therapeutic Multiple Vitamins oral tablet 1 tablet, By Mouth, Daily, # 30 tablet, 0 Refills, Maintenance, 03/25/22 11:18:00 EST, Tablet, [email or web address] #[id number], Partial fill upon patient request if the prescription is for a schedule II opioid drug., 1 tablet By Mouth Daily,x30 days, 188,... Start Date: 03/25/22 Stop Date: 04/24/22 Status: Ordered OxyCONTIN 10 mg oral tablet, extended release 10 mg, 1, tablet, By Mouth, Every 12 hours, # 28 tablet, Refills 0, Tot. Refills 0, Maintenance, 03/25/22 11:18:00 EST, Route to Pharmacy Electronically, [email or web address] #[id number], Partial fill upon patient request if the [...] 0 Refills, Maintenance, 01/07/23 0:35:00 EDT, Tablet, [email or web address] #[id number], Partial fill upon patient request if the prescription is for a schedule II opioid... Start Date: 01/07/23 Status: Ordered Problem List Condition Confirmation Course Effective Dates Status [facility] Informant Chronic back pain Confirmed Active Agitation Confirmed Active Parkinson disease Confirmed Active Trauma and stressor-related disorder Confirmed Active Suicidal ideation Confirmed 2017 Active Results Radiology Reports * Exam Date Time Procedure Performing Provider Status 03/10/23 7:[address] Cervical Spine W/O Contrast Colon , [place]; Auth (Verified) Notes: (CT Cervical Spine W/O Contrast) Reason For Exam: Neck trauma, dangerous injury mechanism;Other: RESULT: CT Cervical Spine W/O Contrast CT Cervical Spine W/O Contrast Hx of Present Illness: Mid back pain and urinary incontinence after fall on Wednesday, already seen here for this; Reason: Other:; Neck trauma, dangerous injury mechanism; Clinical Question(s): Fracture Dislocation; Order Comment: TECHNIQUE: Spiral CT of the cervical spine without contrast, formatted in 3 planes. Weight-based protocol using automatic tube modulation was used to optimize exposure parameters. RADIATION DOSE PARAMETERS: CTDIvol Body: 10.70 mGy, DLP Body: 323 mGy*cm. COMPARISON: CT 01/12/2022 FINDINGS: Spine: No fracture. No acute osseous abnormalities. The alignment is maintained. The intervertebral disc spaces are preserved. Mild degenerative disc changes at C5-C6. Mild multilevel facet arthropathy. No locked or perched facet. Soft tissues and lung apices: Clear lung apices. Normal thyroid gland. IMPRESSION: No acute traumatic injury to cervical spine. I have personally reviewed the images and I agree with this report. WSN: [id number] Ordering Physician: Andres Gonzalez Dictated By: Long Brito MD Dictated Date/Time: 03/10/23 8:41 pm Reviewed By: Jah Tavarez MD Signed By: Jah Tavarez MD Signed Date/Time: 03/10/23 8:46 pm Transcribed By: DALI Transcribed Date/Time: 03/10/23 8:34 pm Vital Signs Most recent to oldest [Reference Range]: 1 2 Height 188 cm (03/10/23 9:54 PM) 188 cm (03/10/23 5:41 PM) Oxygen Saturation [94-100 %] 99 % (03/10/23 5:41 PM) Pulse Rate [55-90 bpm] 88 bpm (03/10/23 5:41 PM) Blood Pressure [90-138/55-84 mm Hg] 149/ 103mm Hg *H* (03/10/23 5:41 PM) Respiratory Rate [16-30 br/min] 20 br/mi n (03/10/23 5:41 PM) Temperature [96.8-100.4 DegF] 98.7 DegF (03/10/23 5:41 PM) Mode of Delivery (Oxygen) Room air (03/10/23 5:41 PM) Blood pressure sites Arm, right (03/10/23 5:41 PM) Temperature Route Oral (03/10/23 5:41 PM) Dry Weight 82 kg (03/10/23 9:54 PM) 82 kg (03/10/23 5:41 PM) Social History Social History Type Response Smoking Status 5-9 cigarettes (betw een 1/4 to 1/2 pack)/day in last 30 days; Interested in cessation: No; Patient wants NRT during admission Yes entered on: 03/19/22 Sex Male EKG study * Event Display: EKG Authored Date: Patient Care team information Care Team Personnel Name: Preethi Jaramillo RN Position: [facility] RN Member Role: Primary Care Nurse Name: Thaddeus Ni RN Position: [facility] RN Member Role: Primary Care Nurse Name: Nuria Reyna RN Position: [facility] RN Member Role: Primary Care Nurse Name: Yesica Carmen RN Position: [facility] RN Member Role: Primary Care Nurse Name: Not on Staff, PCP Position: [facility] Physician (General Medicine) Member Role: PCP Name: Adriano Duque RN Position: [facility] RN Member Role: Primary Care Nurse Name: Shamika Carpenter RN Position: [facility] RN Member Role: Primary Care Nurse Name: Jersey Morris MD Position: [facility] ED Medicine MD Member Role: Admitting Physician Address: Address: [address] [place] [address] Name: José Gaona RN Position: [facility] ED RN W/OE and Tasks Member Role: Patient Care Provider Name: Andres Gonzalez DO Position: [facility] Resident Member Role: ED Resident Address: Address: [address] [place] [address] Name: Joaquín Oseguera Position: [facility] ED [facility] Care Team Related Persons Name: ALISIA PARISH Address: home [address] [place] [address] Name: ALLEN PARISH Address: home [address] [place] [address]
--- OUTSIDE RECORDS SUMMARY | 2023-03-24 23:34 | XMS_ITS | Continuity of Care Document ---
Author Name Unknown Organization [facility] ter Address [address] [place] [address]- Care Team Providers Care Supervisor Production Department Name Role Phone Not on Staff, PCP Primary Care Physician Unavail able Encounter [facility] [place] Date(s): 10/01/21 - 10/01/[address] [address]- Discharge Disposition: A-D/C AMA Attending Physician: Cornelia Wells MD Admitting Physician: Cornelia Wells MD Referring Physician: Not on Staff, Referring MD Allergies, Adverse Reactions, Alerts No Known Allergies Medications Ambien 5 mg oral tablet 1 tablet = 5 mg, By Mouth, Daily at bedtime, PRN as needed for insomnia, 0 Refills, Maintenance, 08/25/18 23:04:44 EDT, Tablet Start Date: 08/25/18 Status: Ordered clonazePAM 0.5 mg oral tablet 1 tablet = 0.5 mg, By Mouth, Daily, 0 Refills, Maintenance, 04/10/17 12:07:28 Start Date: 04/10/17 Status: Ordered Cymbalta Capsule By Mouth, 0 Refills, Maintenance, 09/20/21 8:44:00 EDT, Partial fill upon patient request if the prescription is for a schedule II opioid drug. Start Date: 09/20/21 Status: Ordered diazepam 5 mg oral tablet 5 mg, 1, tablet, By Mouth, Daily, Refills 0, Maintenance, 09/24/21 19:30:00 EDT, Partial fill upon patient request if the prescription is for a schedule II opioid drug. Start Date: 09/24/21 Status: Ordered Levodopa = 84 mg, Inhalation, 3 times a day, 0 Refills, Maintenance, 09/20/21 8:44:00 EDT, Partial fill uponpatient request if the prescription is for a schedule II opioid drug. Start Date: 09/20/21 Status: Ordered Medrol Dosepak 4 mg oral tablet 1 pack/packet, By Mouth, Daily, for 6 days, as directed on package labeling, # 21 tablet, 5 Refills, Acute 10/31/21 8:22:00 EDT, 09/25/21 8:22:00 EDT, Tablet, Partial fill upon patient request if theprescription is for a schedule II opioid drug. Start Date: 09/25/21 Stop Date: 10/31/21 Status: Ordered Multivitamin 1 tablet, By Mouth, Daily, 0 Refills, Maintenance, 10/25/13 13:24:03 Start Date: 10/25/13 Status: Ordered Oxycodone By Mouth, 0 Refills, Maintenance, 08/04/17 20:50:48 EDT Start Date: 08/04/17 Status: Ordered Problem List Condition Effective Dates Status Health Status Inform ant Agitation(Confirmed) Active Suicidal ideation(Confirmed) 2016 Active Results Radiology Reports * Exam Date Time Procedure Performing Provider Status 10/01/21 9:16 AM Chest 2 Views Frontal and Lat Miguel Ángel , Jesica; Auth (Verified) Notes: (Chest 2 Views Frontal and Lat) Reason For Exam: Chest Pain;Other: RESULT: Chest 2 Views Frontal and Lat Chest 2 Views Frontal and Lat Hx of Present Illness: pt states, I have a headache and elevated bp for the last 2 weeks. I have been getting thinner and thinner. I Keep losing weight and i feel off, I feel tired. im just not right ; Reason: Other:; Chest Pain; Clinical Question(s): Other: COMPARISON: 09/24/2021. FINDINGS: LINES AND TUBES: None. LUNGS AND PLEURA: Clear lungs. Normal pulmonary vascularity. No pleural effusion. No pneumothorax. HEART, MEDIASTINUM AND EDITA: Heart is normal in size. Normal upper mediastinal and hilar contour. BONES AND SOFT TISSUES: No acute abnormality. IMPRESSION: No acute abnormality. No interval change. WSN: [id number] Ordering Physician: Gus Wheeler Dictated By: Alec Wren MD, V Dictated Date/Time: 10/01/21 9:21 am Reviewed By: Alec Wren MD, V Signed By: Alec Wren MD, V Signed Date/Time: 10/01/21 9:21 am Transcribed By: DALI Transcribed Date/Time: 10/01/21 9:20 am Vital Signs Most recent to oldest [Reference Range]: 1 2 3 Oxygen Saturation [94-100 %] 99 % (10/01/21 9:22 AM) 99 % (10/01/21 8:42 AM) 100 % (10/01/21 8:36 AM) Pulse Rate [55-90 bpm] 79 bpm (10/01/21 9:22 AM) 78 bpm (10/01/21 8:42 AM) 82 bpm (10/01/21 8:36 AM) Blood Pressure [90-138/55-84 mm Hg] 134/90mm Hg (10/01/21 9:22 AM) 133/97mm Hg (10/01/21 8:42 AM) Respiratory Rate [16-30 br/min] 24 br/min (10/01/21 9:22 AM) 18 br/min (10/01/21 8:42 AM) Temperature [96.8-100.4 DegF] 97.9 DegF (10/01/21 9:22 AM) 98.0 DegF (10/01/21 8:42 AM) Mode of Delivery (Oxygen) Room air (10/01/21 9:22 AM) Room air (10/01/21 8:42 AM) Room air (10/01/21 8:36 AM) Blood pressure sites Arm, left (10/01/21 9:22 AM) Arm, left (10/01/21 8:42 AM) Temperature Route Oral (10/01/21 9:22 AM) Oral (10/01/21 8:42 AM) Social History Social History Type Response Smoking Status Current every day pedro delong entered on: 06/28/14 Sex
--- OUTSIDE RECORDS SUMMARY | 2023-03-24 23:34 | XMS_ITS | Continuity of Care Document ---
Author Name Unknown Organization [facility] ter Address [address] [place] [address]- Care Team Providers Care Logistics Management Specialist Name Role Phone Not on Staff, PCP Primary Care Physician Unavail able Encounter [facility] [place](s): 12/21/22 - 12/22/[address] [address]- Encounter Diagnosis Chest pain(Final) - 12/22/22 Discharge Disposition: A-D/C Home Attending Physician: Jesse Medina MD Admitting Physician: Jesse Medina MD Referring Physician: Not on Staff, Referring [...] Marcello rded tetanus/diphtheria/pertussis, acel(Tdap) 03/05/10 Recorded Medications multivitamin Therapeutic Multiple Vitamins oral tablet 1 tablet, By Mouth, Daily, # 30 tablet, 0 Refills, Maintenance, 03/25/22 11:18:00 EST, Tablet, [facility] #[id number], Partial fill upon patient request if the prescription is for a schedule II opioid drug., 1 tablet By Mouth Daily,x30 days, 188,... Start Date: 03/25/22 Stop Date: 04/24/22 Status: Ordered OxyCONTIN 10 mg oral tablet, extended release 10 mg, 1, tablet, By Mouth, Every 12 hours, # 28 tablet, Refills 0, Tot. Refills 0, Maintenance, 03/25/22 11:18:00 EST, Route to Pharmacy Electronically, [facility] #[id number], Partial fill upon patient request if the prescription is for a sched... Start Date: 03/25/22 Stop Date: 04/08/22 Status: Ordered QUEtiapine 100 mg oral tablet 100 mg, 1, tablet, By Mouth, Daily at bedtime, # 30 tablet, Refills 0, Tot. Refills 0, Maintenance,03/25/22 11:20:00 EST, Route to Pharmacy Electronically, [facility] #[id number], Partial fill upon patient request if the prescription is for a sc... Start Date: 03/25/22 Stop Date: 04/24/22 Status: Ordered QUEtiapine 50 mg oral tablet 1 tablet = 50 mg, By Mouth, 2 times a day, # 60 tablet, 0 Refills, Maintenance, 03/25/22 11:22:00 EST, Tablet, [facility] #[id number], Partial fill upon patient request if the prescription is for a schedule II opioid drug., 188, cm, 03/25/22 8:21... Start Date: 03/25/22 Stop Date: 04/24/22 Status: Ordered SEROquel 25 mg oral tablet 25 mg, 1, tablet, By Mouth, 3 times a day, PRN, # 90 tablet, Refills 0, Tot. Refills 0, Maintenance, Anxiety, 03/25/22 11:20:00 EST, Route to Pharmacy Electronically, [facility] #[id number], Partial fill upon patient request if the prescription i... Start Date: 03/25/22 Stop Date: 04/24/22 Status: Ordered Problem List Condition Confirmation Course Effective Dates Status [facility] Informant Chronic back pain Confirmed Active Agitation Confirmed Active Parkinson disease Confirmed Active Trauma and stressor-related disorder Confirmed Active Suicidal ideation Confirmed 2017 Active Results Radiology Reports * Exam Date Time Procedure Performing Provider Status 12/22/22 12:32 AM Chest 2 Views Fronta l and Lat Lainey Washington; Auth (Verified) Notes: (Chest 2 Views Frontal and Lat) Reason For Exam: Shortness of Breath RESULT: Chest 2 Views Frontal and Lat Examination: Chest performed on 12/22/2022. History: Palpitations. Findings: Frontal and lateral views of the chest are compared to a prior study dated 12/09/2022. The cardiac and mediastinal silhouettes are within normal limits. The lungs are clear. The osseous and soft tissue structures are unremarkable. Impression: There is no acute cardiopulmonary disease. WSN: [id number] Ordering Physician: Jessi Pierce Dictated By: Kaia Willis MD Dictated Date/Time: 12/22/22 7:39 am Reviewed By: Kaia Willis MD Signed By: Kaia Willis MD Signed Date/Time: 12/22/22 7:39 am Transcribed By: CSLeonie Transcribed Date/Time: 12/22/22 7:38 am Vital Signs Most recent to oldest [Reference Range]: 1 2 3 Oxygen Saturation [94-100 %] 98 % (12/22/22 5:33 AM) 100 % (12/22/22 2:39 AM) 100 % (12/22/22 1:03 AM) Pulse Rate [55-90 bpm] 95 bpm *H* (12/22/22 5:33 AM) 93 bpm *H* (12/22/22 2:39 AM) 96 bpm *H* (12/22/22 1:03 AM) Blood Pressure [90-138/55-84 mm Hg] 126/89mm Hg (12/22/22 5:33 AM) 112/73mm Hg (12/22/22 2:39 AM) 134/90mm Hg (12/22/22 1:03 AM) Respiratory Rate [16-30 br/min] 16 br/min (12/22/22 5:33 AM) 16 br/min (12/22/22 2:39 AM) 16 br/min (12/22/22 1:03 AM) Temperature [96.8-100.4 DegF] 97.8 DegF (12/22/22 5:33 AM) 98.0 DegF (12/22/22 1:03 AM) Mode of Delivery (Oxygen) Room air (12/22/22 5:33 AM) Room air (12/22/22 2:39 AM) Room air (12/22/22 1:03 AM) Blood pressure sites Arm, left (12/22/22 5:33 AM) Arm, left (12/22/22 1:03 AM) Temperature Route Oral (12/22/22 5:33 AM) Oral (12/22/22 1:03 AM) Social History Social History Type Response Smoking Status 5-9 cigarettes (betw een 1/4 to 1/2 pack)/day in last 30 days; Interested in cessation: No; Patient wants NRT during admission Yes entered on: 03/19/22 Sex EKG study * Event Display: ECG 12-Lead Authored Date: Please click on pdf link to open report * Event Display: ECG 12-Lead Authored Date: Ventricular Rate: 101 BPM Atrial Rate: 101 BPM P-R Interval: 162 ms QRS Duration: 102 ms Q-T Interval: 378 ms QTC Calculation(Bazett): 490 ms P Summit: 53 degrees R Summit: 26 degrees T Summit: 51 degrees Sinus tachycardia Otherwise normal ECG When compared with ECG of 24-MAR-2022 09:41, No significant change was found Confirmed by ZAIRE MORENO ([id number]) on 12/22/2022 8:19:24 AM [place]: ZAIRE MORENO * Event Display: EKG Authored Date: Note * Jessi Perez: PERFORM, SIGN, VERIFY Event Display: Patient Education Handout Authored Date: [id number] * Jessi Perez: PERFORM Event Display: Patient Education Leaflets Authored Date: [id number] [facility] - Mental Health Providers ?? 146 ?? If you Need a Mental Health Provider ?? Clinical Support Options [address] [place], [place] [phone] ?? [facility] [address] [place], [place] [phone] ?? [facility] [address], [place] [phone] ?? [facility] [place], [place] [phone] ?? [place], [place] [phone] ?? [facility] [address] [place] [address] ?? [facility] Behavioral Health Central Intake ?? [facility] Behavioral Health Geriatric-psychiatry, Child Evaluations ?? [facility] ( [address] [place], [place] [phone] ?? [facility] [place], [place] [phone] ?? [facility] [address] [place], [place] [phone] ?? [facility] [place], [place] [phone] ?? [facility] [address] [place], [place] [phone] ?? [facility] [address] [place], [place] [phone] ?? [facility] [address] [place], [place] [phone] ? * Jessi Perez: PERFORM Event Display: Patient Education Leaflets Authored Date: [id number] Uncertain Causes of Chest Pain ?? [id number] Uncertain Causes of Chest Pain Chest pain can happen for a number of reasons. Sometimes the cause can't be determined. If your??condition does not seem serious, and your pain does not appear to be coming from your heart, your healthcare provider may recommend watching it closely. Sometimes the signs of a serious problem take more time to appear. Many problems not related to your heart can cause chest pain. These include: ??? Musculoskeletal. Costochondritis is an inflammation of the tissues around the ribs that can occur from trauma or overuse injuries, or a strain of the muscles of the chest wall. ??? Respiratory. Pneumonia, collapsed lung (pneumothorax), or inflammation of the lining of the chest and lungs (pleurisy). ??? Gastrointestinal. Esophageal reflux, heartburn, ulcers, or gallbladder disease. ??? Anxiety and panic disorders ??? Nerve compression and inflammation ??? Rare problems such as aortic aneurysm or aortic dissection (a swelling of the large artery coming out of the heart or a tear in the wall of the artery), or pulmonary embolism (a blood clot in the lungs). Home care After your visit, follow these recommendations: ??? Rest today and avoid strenuous activity. ??? Take any prescribed medicine as directed. ??? Be aware of any recurrent chest pain and notice any changes ?? Follow-up care Follow up with your healthcare provider if you don't start to feel better within 24 hours, or as advised. ?? Call 911 Call 911 if any of these occur: ??? A change in the type of pain: if it feels different, becomes more severe, lasts longer, or begins to spread into your shoulder, arm, neck, jaw or back ??? Shortness of breath or increased pain with breathing ??? Weakness, dizziness, or fainting ??? Rapid heartbeat ??? Crushing sensation in your chest ??? Coughing up more than a small amount of blood. ?? When to seek medical advice Call your healthcare provider right away if any of the following occur: ??? Cough with dark coloredsputum (phlegm) or small amount of blood ??? Fever of 100.4??F??(38??C) or higher, or as directed by your healthcare provider ??? Swelling, pain or redness in one leg ?? Last Reviewed Date: 2021 ?? 0318-7751 [employer]. All rights reserved. This information is not intended as a substitute for professional medical care. Always follow your healthcare professional's instructions. ?? Patient Care team information Care Team Personnel Name: Preethi Jaramillo RN Position: [facility] RN Member Role: Primary Care Nurse Name: Nuria Reyna RN Position: [facility] RN Member Role: Primary Care Nurse Name: Yesica Carmen RN Position: [facility] RN Member Role: Primary Care Nurse Name: Not on Staff, PCP Position: [facility] Physician (General Medicine) Member Role: PCP Name: Adriano Duque RN Position: [facility] RN Member Role: Primary Care Nurse Name: Shamika Carpenter RN Position: [facility] RN Member Role: Primary Care Nurse Name: Awilda Andrews Position: [facility] Member Role: Patient Care Provider Name: Marisol Quintana RN Position: [facility] ED RN W/OE and Tasks Member Role: Patient Care Provider Name: Jesse Medina MD Position: [facility] Resident Member Role: ED Attending Physician Address: Address: [address] [place] [address]- Name: Jessi Perez Position: [facility] Associate Professional Member Role: ED Physician As[employer]er [employer] Address: Address: [address] [place] [address] [address]- Care Team Related Persons Name: ALISIA PARISH Address: [address] [address] Name: ALLEN PARISH Address: home [address] [place] [address]
--- OUTSIDE RECORDS SUMMARY | 2023-03-24 23:34 | XMS_ITS | Continuity of Care Document ---
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 significant valvular abnormalities. Mildly dilated aortic root (4.1 cm). Comparison No prior study available for comparison. Signature * Event Display: Echocardiogram - Complete Authored Date: [id number] Note * Event Display: Cardiac Rhythm Strips Authored Date: * Nathalie Cintron RN: PERFORM Event Display: Discharge/Transfer Note Hospital Authored Date: Nursing Discharge Note Entered On: 03/24/2022 12:04 EST Performed On: 03/24/2022 12:04 EST by Nathalie Cintron RN Nursing Discharge Note 2 Discharge Time : 03/24/2022 12:00 EST Discharge Level of Care at Discharge : Psychiatric Facility/Unit Patient Left Unit Via : Wheelchair Patient Accompanied Off Unit with : Responsible adult DC Instructions Provided & Signed by Pt : No Patient Understands D/C Instructions : No Verbalized Understanding of D/C Plan By : Patient Patient Instructions Discharge Signed : Yes Did Pt have Specialty Bed or Wound Vac : No Nathalie Cintron RN - 03/24/2022 12:04 EST * Shamar HARKINS, Arturo: MODIFY, PERFORM Event Display: Discharge/Transfer Note Hospital Authored Date: Patient: ??BOBBY ARMANDO ? Age:??51 Years?Sex:??Male?:??1970?? Patient Information Discharge Location: W4 Primary Care Physician: Not on Staff, PCP Admit Date/Time: 03/21/22 15:41 Discharge Disposition Discharge Disposition: After discharge,??will be??admitted to??[facility] inpatient??Psychiatry unit?? Discharge Diagnosis HTN (hypertension) (I10) MDD (major depressive disorder) (F32.9) Migraine (G43.909) Parkinson disease (G20) Epigastric pain (R10.13) Hypertensive emergency (I16.1) ?? _ Discharge Medications Acetaminophen (acetaminophen 325 mg oral tablet)?650?Milligram?By Mouth?Every 6 hours?as needed?/Headache?Pain , Mild Acetaminophen/Butalbital/Caffeine (Fioricet Tablet)?1?tab(s)?By Mouth?Every 6 hours?as needed?Headache Al Hydroxide/Mg Hydroxide/Simethicone (Maalox Plus Liquid)?30?Milliliter?By Mouth?Every8 hours?as needed?Indigestion Diazepam (diazepam 5 mg oral tablet)?5?Milligram?1?tablet?By Mouth?Daily Lidocaine Topical (lidocaine 5% topical film)?See Instructions?Topically Daily over bottom rib over left side abdomen.remove patches after 12 hours Milk of Magnesia (Milk of Magnesia Liquid)?30?Milliliter?By Mouth?Daily at bedtime?as needed?Constipation Multivitamin (Multivitamin Tablet)?1?tab(s)?By Mouth?Daily Nicotine (Nicotine Gum)?2?Milligram?Chew?Every 15 minutes?as needed?cigarette craving?Other Oxycodone (oxyCODONE 5 mg oral tablet)?5?Milligram?1?tablet?By Mouth?Every 4 hours?as needed?Pain , Severe Oxycodone (OxyCONTIN 10 mg oral tablet, extended release)?10?Milligram?1?tablet?By Mouth?Every 12 hours Quetiapine (SEROquel 25 mg oral tablet)?25?Milligram?1?tablet?By Mouth?3 times a day?as needed?Anxiety Quetiapine (QUEtiapine 25 mg oral tablet)?50?Milligram?2?tablet?By Mouth?3 times a day ? Medications Started None Medications Discontinued 1) Phenelezine 2) Levodopa-Carbidopa 3) Levodopa inhaler 4) Zyprexa : You report not taking this at home 5) ativan: : You report not taking this at home 6) Benadryl: : You report not taking this at home Doses Changed None PCP Follow-Up/Heads-Up - Admitted to medicine floor for hypertension (unopposed Dopamine causing presser effect??due to reaction between Sinemet and Phenelzine -??May need up to??1 week Dopamine washout period, after which dopamine agonists/ supplements can be started if indicated - Patient complaining of headaches post hypertensive episodes which is improved upon discharge frommedicine floor - Mild dilation of Aortic root to 4.1cm on Echo. Follow up in outpatient setting as indicated - Patient to be transferred back to [facility] upon discharge - Has costochondritis on left upper quadrant and would benefit from PT - See in your clinic within 1 week for vitals, CBC, BMP, Mg level check Hospital Course ??51-year-old male with a past medical history of major depression, Parkinson, migraine, mated under psychiatric services for concerns of severe depression with psychotic features, continue Hospital course. 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 ??After discontinuation of both medications, patient's blood pressure stabilized. ??On day of discharge, patient was complaining of mild headache but otherwise no other symptoms. ? Hypertensive emergency (I16.1) -adverese medication reaction between Phelezine and Sinemet Costochondritis causing Abdominal discomfort Status:had hypertensive emergency, had symptoms -chest pain/epigastria pain, nausea and emesis, patient had BP in 80's followed by BP in 220. patient was increasing anxious and getting agitated priorto BP elevation regardless patient did not have symptoms associated with it. EKG obtained on my encounter NSR, no acute st-t changes, Qtc 462.?? CT A/P - w/o acute pathology ddx - medication reaction ( interaction with phenelzine and sinemet) vs autonomic dysfunction in the setting of Parkinson disease vs agitation may have contributed) Recommendations: - sinemet and phenelzine are DCed. Recommend 1 week dopamine washout(until 03/30/22) period before restarting any meds that can cause unopposed dopamine action. - Patient reports he is not on Levodopa inhaler??at home so that is also stopped - PRN Compazine if patient has headaches due to hx of migraines?? - Lidocaine patches/cream??OTC for costochondritis on left side. Needs outpatient PT referral through PCP if persistent - Can consider OTC Motrin three times a day for three days??for antiinflammatory effects along withheat and/or ice which ever works for patient's pain ?? MDD (major depressive disorder) (F32.9): followed by psychiatry team with psychotic features Recommendations: continue Seroquel, valium, per psychiatry recs ?? -Discharge??from medicine floor and readmit??back to [facility]??on 03/24/22 ?? Migraine (G43.909): Recommendations: - Tylenol as needed ?? Parkinson disease (G20): Recommendations: - STopped administration of Levodopa or Carbidopa Patient not on any at home. - Stopped Phenelzine here. Consider holding medications that can cause unopposed dopamine until at least until 03/30/2022 to allow for washout. ? Hx. Hematochezia - Not noted inpatient: none currently Hb stable. ?? Mild dilatation of Aorta root (4.1cm) on Echo Cardiogram Status: Noted to have mild dilatation of Aorta root on Echo Recommendations: - Follow up in outpatient?? setting as indicated Objective Vital Signs?? Temperature: 98.1 DegF (03/24/22 07:00:00) Temperature Route: Oral (03/24/22 07:00:00) Pulse Rate: 68 bpm (03/24/22 07:00:00) Respiratory Rate: 16 br/min (03/24/22 08:18:00) Systolic Blood Pressure:??145 mm Hg??High (03/24/22 07:00:00) Diastolic Blood Pressure: 81 mm Hg (03/24/22 07:00:00) Blood pressure sites: Arm, left (03/24/22 07:00:00) Mean Arterial Pressure: 102 mm Hg (03/23/22 23:14:00) Pulse Pressure: 64 mm Hg (03/24/22 07:00:00) Oxygen Saturation: 100 % (03/24/22 07:00:00) Mode of Delivery (Oxygen): Room air (03/24/22 07:00:00) Early Warning Score: 0 (03/24/22 08:25:25) ? . Physical Exam Gen?awake, alert, oriented to self, location, date, and situation? Cardiac?no JVD. RRR, no murmurs, rubs, or gallops noted.? Pulmonary?lungs CTAB with good air entry? GI/Abdomen?soft, NT, ND, good bowel sounds. no HSM or masses noted.? MSK/Ext?no cyanosis, clubbing, or edema. good perfusion.?, chest wall pain over LUQ.? Derm?no new rashes noted? Neuro?PERRL. EOMI. CN 2-12 intact. strength 5/5. Consultants 1) Psychiatry: Margo Moreno Pending Results Add On Lab Order ordered on 03/21/2022 COVID-19 (2019 Novel Coronavirus) PCR ordered on 03/23/2022 XR Abdomen AP ordered on 03/24/2022 Patient Education Titles Reaction to Medicine (Other Type)?? Follow-Up Appointments Added Follow Up ?Time Frame ?Comments Not on Staff, PCP?3-5 day: call to discuss follow up visit Patient Instructions You were admitted for concerns of very high blood pressure most likely due to a reaction between 2 medications you are taking. ??These were probably Sinemet and phenelzine. ??Your blood pressure was stabilized and is currently stable and you are ready to be transferred back to inpatient psychiatry care. ??You also indicated you had a headache following the episode and we gave you a medication called Compazine. ??The headaches seem to have significantly improved at this time. We stopped the medications that caused the reaction. You reported not being on Levodopa inhaler at home so do not take it unless you see your PCP/Neurologist. We also found you have costochondritis on your bottom rib over your left abdomen . See your PCP forphysical therapy, which is the ultimate solution. You can buy SalonPas or other over the counter lidocaine patches for use until then for pain control. ?? STOPPED MEDICATIONS: 1) Phenelzine: Talk to Psychiatry team about restarting this at an appropriate time frame 2) Levodopa-Carbidopa 3) Levodopa inhaler (your report not taking at home) 4) Zyprexa : You report not taking this at home 5) ativan: : You report not taking this at home 6) Benadryl: : You report not taking this at home Home Health Face to Face ^HomeHealthFTF Results Discharge Labs BLOOD COUNT & DIFF WBC 8.9 k/mm3 ()?? 03/23/2022 01:10 RBC 4.00 m/mm3 (Low)?? 03/23/2022 01:10 Hgb 11.0 Gm/dL (Low)?? 03/23/2022 01:10 Hct 35.3 % (Low)?? 03/23/2022 01:10 MCV 88.3 femtoliters ()?? 03/23/2022 01:10 MCH 27.5 pg ()?? 03/23/2022 01:10 MCHC 31.2 g/dL (Low)?? 03/23/2022 01:10 Platelet Count 321 k/mm3 ()?? 03/23/2022 01:10 RDW-SD 45.1 femtoliters ()?? 03/23/2022 01:10 MPV 9.5 femtoliters ()?? 03/23/2022 01:10 Nucleated RBC (Automated) 0.0 #/100 WBC'S ()?? 03/23/2022 01:10 Abs. NRBC 0.0 k/mm3 ()?? 03/23/2022 01:10 ?? CARDIAC High Sensitivity Troponin (HSTnT) 52 ng/L (High)?? 03/21/2022 21:29 ? CHEM GENERAL Sodium 142 mmol/L ()?? 03/23/2022 01:10 Potassium 4.8 mmol/L ()?? 03/23/2022 01:10 Chloride 106 mmol/L ()?? 03/23/2022 01:10 Bicarbonate Level 27 mmol/L ()?? 03/23/2022 01:10 Anion Gap 9 ()?? 03/23/2022 01:10 Glucose Level 100 mg/dL (High)?? 03/23/2022 01:10 BUN 20 mg/dL ()?? 03/23/2022 01:10 Creatinine-Blood 0.8 mg/dL ()?? 03/23/2022 01:10 Estimated GFR Creatinine 109 ML/MIN/1.73 M2 ()?? 03/23/2022 01:10 Calcium 8.8 mg/dL ()?? 03/23/2022 01:10 Phosphorus 4.0 mg/dL ()?? 03/23/2022 01:10 Magnesium 2.2 mg/dL ()?? 03/23/2022 01:10 Lipase 27 units/L ()?? 03/21/2022 21:29 ? VIROLOGY COVID-19 PCR Specimen Source NASAL ()?? 03/23/2022 06:12 COVID-19 PCR Result NEGATIVE ()?? 03/23/2022 06:12 ? 45??minutes spent on discharge * Venkata HARKINS, Robles Heard: PERFORM Event Display: Discharge/Transfer Note Hospital Authored Date: [id number] Attending Attestation:??I have seen and evaluated this patient. ??I have discussed the case and itsmanagement with the resident and agree with the findings and plan as documented in the resident???snote. This patient was seen today by me??at??10:50 AM. Patient was ambulating in the [place]??quite frequently.?? He was with an escort at all times.?? He??appeared mildly agitated. Is very angry at times as well.?? Yelling out at times. 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 ?? See above regarding descriptions he gave to Dr. Ibanez regarding??the costochondritis. ?? He continues to have the??need for acute inpatient??psychiatric care. ?? Vital signs are stable today afebrile.?? Blood pressure is doing acceptably well. ?? See above. ? Laboratory review: Abdominal x-ray today??acceptable. ?? Assessment plan: See all details above.?? Patient stable medically. ??Ready for discharge back to??[facility]. ?? That is happening today. Please see above for the rest of the details of our assessments and plans. * Nathalie Cintron RN: PERFORM Event Display: Patient Education/Instruction Authored Date: [id number] Inpatient Adult Discharge Instructions [address] [address] Name: BOBBY ARMANDO : 1970 Visit: 03/21/2022 15:41:00 Current Date: 03/24/2022 11:49 Account: [id number] Inpatient Adult Discharge Instructions We would like to thank you for allowing us to assist you with your healthcare needs. The following includes patient education materials and information regarding your injury/illness. Our entire staffstrives to provide an excellent experience for our patients and their families. PLEASE ENSURE YOU FOLLOW-UP PER THE INSTRUCTIONS BELOW! ?? YOUR OPINION IS IMPORTANT TO US! Please complete the survey you may receive by mail or email. Your feedback will be used to make improvements to the healthcare experiences of our patients and their families. Surveys are administered by [employer]. ?? If further treatment with your primary care physician or another doctor is recommended, it is important for you to keep the appointment. Call your primary care physician or return to the Emergency Department immediately if your condition worsens, fails to improve, or new symptoms develop. If you need to find a doctor, you can call [facility] [employer] for a referral at [phone] or toll free at [phone] or log in to [email or web address].. ?? You can view and manage your care through the patient portal or by using a health care kayli of your choosing. [employer] is a website that allows you to securely view your medical information including your hospital discharge summary, office visit summaries, medications and follow-up visits. You can also request appointments, renew medications, and request access to your medical information using a health care kayli of your choosing, or just ask a question. You can enroll at [email or web address] or register during your next office visit. You have been discharged from [facility], Patient Care Unit: W4. If you have any questions regarding these instructions after you leave, please call us and we will be happy to assist you. [facility] Your Care Team Attending Physician Venkata HARKINS, Robles Heard Consulting Providers Elizabeth HARKINS, Natalie Moreno MD, Margo Discharging Providers Shamar HARKINS, Arturo Reason for Admission ABDOMINAL PAIN Your Diagnosis HTN (hypertension) MDD (major depressive disorder) Migraine Parkinson disease Epigastric pain Hypertensive emergency Tests Performed Below is a partial list of the tests performed during your hospitalization. You may have had other tests and procedures not included in this list. Please discuss all test results with your provider. BUN Calcium Level CBC COVID-19 (NOVEL CORONAVIRUS) PCR Creatinine Electrolytes Glucose Level Lipase Magnesium Level Phosphorus Level Troponin T, High Sensitivity CT Abd/Pelvis W/ IV Contrast Only XR Abdomen AP Primary Care Provider Not on Staff, PCP Advance Directive Health Care Proxy on File No Patient refuses to discuss No qualifying data available. Discharge Vitals Temperature: 98.1 DegF Height: 188 cm Pulse Rate: 68 bpm Weight: 77 kg Respiratory Rate: 18 br/min Body Mass Index: 21.79 kg/m2 Systolic Blood Pressure:??145 mm Hg??High Body surface area: 2.01 Diastolic Blood Pressure: 81 mm Hg ?? Oxygen Saturation: 100 % ?? Studies Pending All tests and labs ordered during this hospital stay have been completed unless listed below. Please discuss all pending results with your provider listed above in these instructions. ?? Add On Lab Order COVID-19 (2019 Novel Coronavirus) PCR What to do next Instructions From Your Doctor You were admitted for concerns of very high blood pressure most likely due to a reaction between 2 medications you are taking. ??These were probably Sinemet and phenelzine. ??Your blood pressure was stabilized and is currently stable and you are ready to be transferred back to inpatient psychiatry care. ??You also indicated you had a headache following the episode and we gave you a medication called Compazine. ??The headaches seem to have significantly improved at this time. We stopped the medications that caused the reaction. You reported not being on Levodopa inhaler at home so do not take it unless you see your PCP/Neurologist. We also found you have costochondritis on your bottom rib over your left abdomen . See your PCP forphysical therapy, which is the ultimate solution. You can buy SalonPas or other over the counter lidocaine patches for use until then for pain control. ?? STOPPED MEDICATIONS: 1) Phenelzine: Talk to Psychiatry team about restarting this at an appropriate time frame 2) Levodopa-Carbidopa 3) Levodopa inhaler (your report not taking at home) 4) Zyprexa : You report not taking this at home 5) ativan: : You report not taking this at home 6) Benadryl: : You report not taking this at home Discharge Orders You Need to Schedule the Following Appointments Follow Up with??Not on Staff, PCP When??Within 3-5 day: call to discuss follow up visit Where: Discharge Medications BOBBY ARMANDO :1970 Visit Date:03/21/2022 Medications: Please continue your medications until treatment is completed or stopped by your provider. Medications not listed below should be discontinued. Discuss any questions related to medications with your provider. What How Much When Instructions Next Dose New Lidocaine Topical (lidocaine 5% topical film) See instructions Topically Daily over bottom rib over left side abdomen. remove patches after 12 hours Apply at border of botom rib and your abdomen on left side. Remove old patch before applying new one. ?? Pickup at [facility] 3 Apply new patch every 24hours Unchanged Acetaminophen (acetaminophen 325 mg oral tablet) 650 Milligram Oral Every 6 hours as needed for Pain , Mild / Headache ?? As needed Unchanged Acetaminophen/ Butalbital/ Caffeine (Fioricet Tablet) 1 tab(s) Oral Every 6 hours as needed for Headache As needed Unchanged Al Hydroxide/ Mg Hydroxide/ Simethicone (Maalox Plus Liquid) 30 Milliliter Oral Every 8 hours as needed for Indigestion As needed Unchanged Diazepam (diazepam 5 mg oral tablet) 1 tab(s) Oral Daily Tonight 03/24 Unchanged Milk of Magnesia (Milk of Magnesia Liquid) 30 Milliliter Oral Daily at Bedtime as needed for Constipation As needed Unchanged Multivitamin (Multivitamin Tablet) 1 tab(s) Oral Daily Tomorrow AM 03/25 Unchanged Nicotine (Nicotine Gum) 2 Milligram Chew Every 15 minutes as needed for Other cigarette craving ?? As needed Unchanged Oxycodone (oxyCODONE 5 mg oral tablet) 1 tab(s) Oral Every 4 hours as needed for Pain , Severe As needed Unchanged Oxycodone (OxyCONTIN 10 mg oral tablet, extended release) 1 tab(s) Oral Every 12 hours Tonight 03/24 at 10pm Unchanged Quetiapine (QUEtiapine 25 mg oral tablet) 2 tab(s) Oral 3 times a day Today 03/24 at 3pm Unchanged Quetiapine (SEROquel 25 mg oral tablet) 1 tab(s) Oral 3 times a day as needed for Anxiety As needed [facility]: [address], [place] [id number] [phone] ?? What How Much When Comments Stop Taking DiphenhydrAMINE (diphenhydrAMINE 50 mg oral tablet) 50 Milligram Oral Twice a day as needed for Agitation only for agitation with zyprexa and benadryl and ativan ?? Stop Taking Lorazepam (Ativan 2 mg oral tablet) 1 tab(s) Oral Twice a day as needed for Agitation only for agitation with zyprexa and benadryl and ativan ?? Stop Taking Melatonin (melatonin 3 mg oral tablet) 9 Milligram Oral Daily at Bedtime as needed for Sleep Stop Taking Olanzapine (ZyPREXA 5 mg oral tablet) 1 tab(s) Oral Twice a day as needed for Other only for agitation with zyprexa and benadryl and ativan ?? Test Results Below is a partial list of the most recent Laboratory test results done prior to this discharge. You may have had other tests and procedures not included in this list. Please discuss all test resultswith your provider. BUN (03/23/2022) ???BUN - 20 mg/dL Calcium Level (03/23/2022) ???Calcium - 8.8 mg/dL CBC (03/23/2022) ???WBC - 8.9 k/mm3???RBC - 4.00 m/mm3???Hgb - 11.0 Gm/dL???Hct - 35.3 %???MCV - 88.3 femtoliters???MCH - 27.5 pg???MCHC - 31.2 g/dL???Platelet Count - 321 k/mm3???RDW-SD - 45.1 femtoliters???MPV - 9.5 femtoliters???Nucleated RBC (Automated) - 0.0 #/100 WBC'S???Abs. NRBC - 0.0 k/mm3 COVID-19 (NOVEL CORONAVIRUS) PCR (03/23/2022) ???COVID-19 PCR Specimen Source - NASAL???COVID-19 PCR Result - NEGATIVE Creatinine (03/23/2022) ???Creatinine-Blood - 0.8 mg/dL???Estimated GFR Creatinine - 109 ML/MIN/1.73 M2 Electrolytes (03/23/2022) ???Sodium - 142 mmol/L???Potassium - 4.8 mmol/L???Chloride - 106 mmol/L???Bicarbonate Level - 27 mmol/L???Anion Gap - 9 Glucose Level (03/23/2022) ???Glucose Level - 100 mg/dL Lipase (03/21/2022) ???Lipase - 27 units/L Magnesium Level (03/23/2022) ???Magnesium - 2.2 mg/dL Phosphorus Level (03/23/2022) ???Phosphorus - 4.0 mg/dL Troponin T, High Sensitivity (03/21/2022) ???High Sensitivity Troponin (HSTnT) - 52 ng/L Allergies (NKA means No Known Allergies) NKA Problems Active Problems??(2) Agitation?? Suicidal ideation?? Education Materials Below is the list of Educational Leaflet Providered with your Discharge Instructions. Reaction to Medicine (Other Type)?? Valuables and Belongings I fully understand and agree that [facility] accepts no responsibility for all my personal property including clothing, toilet articles, radios, jewelry, dentures, hearing aids, rings, money, or any other property that is in my possession or is brought to me after admission. I understand certain valuables may be placed in a hospital safe for a short period of time. I understand that the hospital is not liable for loss or damage due to accident, fire, or other natural occurrence while said property is in the safe. I accept full responsibility for any personal property that I keep with me, and will not hold the hospital responsible in case of loss or disappearance. I acknowledge that i have been encouraged to send valuables and belongings home. ?? Review of Valuable and Belonging List: With witness Date for Pt to Sign Valuables/Belongings: 03/22/22 05:08:00 ?? Other Discharge Information ? Pulmonary Rehab Status?? Pulmonary Rehab Discharge Status?? Respiratory Rate: 18 br/min ? Common Emergency Awareness Tips IS IT A STROKE? Act FAST and Check for these signs: FACE Does the face look uneven? ARM Does one arm drift down? SPEECH Does their speech sound strange? TIME Call at any sign of stroke ?? Heart Attack Signs Chest discomfort: Most heart attacks involve discomfort in the center of the chest and lasts more than a few minutes, or goes away and comes back. It can feel like uncomfortable pressure, squeezing, fullness or pain. Discomfort in upper body: Symptoms can include pain or discomfort in one or both arms, back, neck, jaw or stomach. Shortness of breath: With or without discomfort. Other signs: Breaking out in a cold sweat, nausea, or lightheaded. Remember, MINUTES DO MATTER. If you experience any of these heart attack warning signs, call to get immediate medical attention! ?? Smoking can increase your chances of developing chronic health problems and can cause harmful effects to other family members in your house. If you smoke, you are strongly encouraged to quit. Please call [facility] [employer] [facility] at [phone] or [phone] ([phone]) or log in to [email or web address] for referrals to smoking cessation programs. ?? The National Suicide Prevention Hotline is available 26/10 if you or someone you know needs to find a reason to keep living. By calling [phone] [employer] Quotes (1355) you'll be connected to a skilled, trained counselor at a crisis center in your area. INPATIENT DISCHARGE INSTRUCTIONS SIGNATURE PAGE BOBBY ARMANDO Location:[facility] Registration Date and Time:03/21/2022 15:41 EST Primary Care Physician: Not on Staff, PCP Ethel BOBBY ARMANDO, have received the above patient education materials/instructions and have verbalized understanding. If ambulance or transport services are being used I further acknowledge being given a choice of service. ?? If you need to contact me, please call me at this number: . Patient/Binder Roller Name: Patient/Binder Roller Signature: Relationship to Patient: Witness Name/Signature: Date: * Shamar HARKINS, Arturo: MODIFY Shamar HARKINS, Arturo: MODIFY, MODIFY Shamar HARKINS, Arturo: MODIFY, MODIFY Shamar HARKINS, Arturo: MODIFY, MODIFY Shamar HARKINS, Arturo: MODIFY, PERFORM Shamar HARKINS, Arturo: PERFORM, MODIFY Shamar HARKINS, Arturo: MODIFY, MODIFY Shamar HARKINS, Arturo: MODIFY Event Display: Discharge/Transfer Note Hospital Authored Date: Patient: ??BOBBY ARMANDO ? Age:??51 Years?Sex:??Male?:??1970?? Patient Information Discharge Location: Primary Care Physician: Not on Staff, PCP Admit Date/Time: 03/21/22 15:41 Discharge Disposition Discharge Disposition:?Patient will be admitted to [facility] upon discharge from medicine floor ?? Discharge Diagnosis HTN (hypertension) (I10) MDD (major depressive disorder) (F32.9) Migraine (G43.909) Parkinson disease (G20) Epigastric pain (R10.13) Hypertensive emergency??due to Adverse medication interaction ?? _ Discharge Medications Acetaminophen (acetaminophen 325 mg oral tablet)?650?Milligram?By Mouth?Every 6 hours?as needed?/Headache?Pain , Mild Acetaminophen/Butalbital/Caffeine (Fioricet Tablet)?1?tab(s)?By Mouth?Every 6 hours?as needed?Headache Al Hydroxide/Mg Hydroxide/Simethicone (Maalox Plus Liquid)?30?Milliliter?By Mouth?Every8 hours?as needed?Indigestion Diazepam (diazepam 5 mg oral tablet)?5?Milligram?1?tablet?By Mouth?Daily Milk of Magnesia (Milk of Magnesia Liquid)?30?Milliliter?By Mouth?Daily at bedtime?as needed?Constipation Multivitamin (Multivitamin Tablet)?1?tab(s)?By Mouth?Daily Nicotine (Nicotine Gum)?2?Milligram?Chew?Every 15 minutes?as needed?cigarette craving?Other Oxycodone (oxyCODONE 5 mg oral tablet)?5?Milligram?1?tablet?By Mouth?Every 4 hours?as needed?Pain , Severe Oxycodone (OxyCONTIN 10 mg oral tablet, extended release)?10?Milligram?1?tablet?By Mouth?Every 12 hours Quetiapine (SEROquel 25 mg oral tablet)?25?Milligram?1?tablet?By Mouth?3 times a day?as needed?Anxiety Quetiapine (QUEtiapine 25 mg oral tablet)?50?Milligram?2?tablet?By Mouth?3 times a day ? Medications Started None Medications Discontinued 1) Phenelezine 2) Levodopa-Carbidopa 3) Levodopa inhaler 4) Zyprexa : You report not taking this at home 5) ativan: : You report not taking this at home 6) Benadryl: : You report not taking this at home Doses Changed none PCP Follow-Up/Heads-Up - Admitted to medicine floor for hypertension (unopposed Dopamine causing presser effect??due to reaction between Sinemet and Phenelzine -??May need up to??1 week Dopamine washout period, after which dopamine agonists/ supplements can be started if indicated - Patient complaining of headaches post hypertensive episodes which is improved upon discharge frommedicine floor - Mild dilation of Aortic root to 4.1cm on Echo. Follow up in outpatient setting as indicated - Patient to be transferred back to [facility] upon discharge - See in your clinic within 1 week for vitals, CBC, BMP, Mg level check Hospital Course ??51-year-old male with a past medical history of major depression, Parkinson, migraine, mated under psychiatric services for concerns of severe depression with psychotic features, continue Hospital course. 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 ??After discontinuation of both medications, patient's blood pressure stabilized. ??On day of discharge, patient was complaining of mild headache but otherwise no other symptoms. ? Hypertensive emergency (I16.1) -adverese medication reaction between Phelezine and Sinemet Abdominal discomfort Status:had hypertensive emergency, had symptoms -chest pain/epigastria pain, nausea and emesis, patient had BP in 80's followed by BP in 220. patient was increasing anxious and getting agitated priorto BP elevation regardless patient did not have symptoms associated with it. EKG obtained on my encounter NSR, no acute st-t changes, Qtc 462.?? CT A/P - w/o acute pathology ddx - medication reaction ( interaction with phenelzine and sinemet) vs autonomic dysfunction in the setting of Parkinson disease vs agitation may have contributed) Recommendations: - sinemet and phenelzine are DCed. Recommend 1 week dopamine washout(until 03/30/22) period before restarting any meds that can cause unopposed dopamine action. - Patient reports he is not on Levodopa inhaler??at home so that is also stopped ? MDD (major depressive disorder) (F32.9): followed by psychiatry team with psychotic features Recommendations: continue Seroquel, valium, per psychiatry recs -valium PRN or Benadryl PRN for agitation -zyprexa for severe agitation -Tx back to [facility]??on 03/23/22 ?? Migraine (G43.909): Recommendations: - Tylenol as needed ?? Parkinson disease (G20): Recommendations: - STopped administration of Levodopa or Carbidopa Patient not on any at home. - Stopped Phenelzine here. Consider holding medications that can cause unopposed dopamine until at least until 03/30/2022 to allow for washout. ? Hematochezia: none currently Hb stable. ?? Mild dilatation of Aorta root (4.1cm) on Echo Cardiogram Status: Noted to have mild dilatation of Aorta root on Echo Recommendations: - Follow up in outpatient?? setting as indicated Objective Vital Signs?? Temperature: 97.9 DegF (03/23/22 07:00:00) Temperature Route: Oral (03/23/22 07:00:00) Pulse Rate: 79 bpm (03/23/22 07:00:00) Respiratory Rate: 18 br/min (03/23/22 07:00:00) Systolic Blood Pressure: 115 mm Hg (03/23/22 07:00:00) Diastolic Blood Pressure: 83 mm Hg (03/23/22 07:00:00) Blood pressure sites: Arm, left (03/23/22 07:00:00) Mean Arterial Pressure: 81 mm Hg (03/23/22 03:02:00) Pulse Pressure: 32 mm Hg (03/23/22 07:00:00) Oxygen Saturation: 100 % (03/23/22 07:00:00) Mode of Delivery (Oxygen): Room air (03/23/22 07:00:00) Early Warning Score: 2 (03/23/22 07:27:21) ? . Physical Exam Gen?awake, alert, oriented to self, location, date, and situation? Cardiac?no JVD. RRR, no murmurs, rubs, or gallops noted.? Pulmonary?lungs CTAB with good air entry? Abdomen?soft, NT, ND, good bowel sounds. no HSM or masses noted.? Ext?no cyanosis, clubbing, or edema. good perfusion.? Derm?no new rashes noted? Neuro?PERRL. EOMI. CN 2-12 intact. strength 5/5. Consultants 1) Psychiatry: Margo Moreno Pending Results Add On Lab Order ordered on 03/21/2022 COVID-19 (2019 Novel Coronavirus) PCR ordered on 03/23/2022 Patient Education Titles Reaction to Medicine (Other Type)?? Follow-Up Appointments Added Follow Up ?Time Frame ?Comments Not on Staff, PCP?3-5 day: call to discuss follow up visit Patient Instructions You were admitted for concerns of very high blood pressure most likely due to a reaction between 2 medications you are taking. ??These were probably Sinemet and phenelzine. ??Your blood pressure was stabilized and is currently stable and you are ready to be transferred back to inpatient psychiatry care. ??You also indicated you had a headache following the episode and we gave you a medication called Compazine. ??The headaches seem to have significantly improved at this time. We stopped the medicaitons that caused the reaction. You can start back on your home Levodopa inhaler at the end of this week (03/29/2022). ?? DO NOT TAKE MEDICATIONS THAT INTERACT WITH LEVODOPA (Unopposed dopamine will cause hypertension) ?? STOPPED MEDICATIONS: 1) Phenelezine 2) Levodopa-Carbidopa 3) Levodopa inhaler :- can be restarted on 03/29/2022 4) Zyprexa : You report not taking this at home 5) ativan: : You report not taking this at home 6) Benadryl: : You report not taking this at home Home Health Face to Face *Denotes mandatory jimenez ?? *I certify that this patient is under my care and that I or an allowed non- physician working with me had a face to face encounter with the patient on this date:??03/23/2022 15:14 ?? *The encounter with the patient was in whole, or in part, for the following medical condition, which is the primary diagnosis(es) for home health care:??HTN (hypertension) (I10) MDD (major depressive disorder) (F32.9) Migraine (G43.909) Parkinson disease (G20) Epigastric pain (R10.13) Hypertensive emergency (I16.1) ? *Select the indications for the discipline/s that are being arranged for this patient. Nursing (select all that apply): [_] None [_] Medication management (reconciliation, teaching)?? [_] Chronic disease management?? [_] Wound care and treatment?? [_] Home safety evaluation [_] Administer SQ/IM/IV medications?? [_] Cath care?? [_] Drain care?? [_] Trach or GT care?? Other _ Occupation Therapy (select all that apply): [_] None [_] ADL Management [_] Fall prevention training [_] Energy conservation [_] Cognitive training Other _ Physical Therapy (select all that apply): [_] None [_] Functional mobility training [_] Home exercise program to strengthen [_] Increase ROM?? [_] Falls prevention training [_] Home maintenance program for chronic disease Other _ Speech Therapy (select all that apply): [_] None [_] Swallow evaluation and training [_] Speech and language training [_] Cognitive training to process, organize, and/or recall information Other _ ? *Homebound due to (select all that apply): [_] Inability to leave home without assistance/supervision [_] Inability to ambulate without assistance [_] Pain [_] Decreased strength and endurance [_] Unsteady gait [_] Severe SOB and fatigue [_] Impaired transfers [_] Inability to negotiate stairs [_] Limited weight bearing [_] Mental status change? *Physician Signature: _ ?? *By signing this, I certify that I have personally evaluated the patient and agree with the findings and recommendations as documented above. ? Results Discharge Labs BLOOD COUNT & DIFF WBC 8.9 k/mm3 ()?? 03/23/2022 01:10 RBC 4.00 m/mm3 (Low)?? 03/23/2022 01:10 Hgb 11.0 Gm/dL (Low)?? 03/23/2022 01:10 Hct 35.3 % (Low)?? 03/23/2022 01:10 MCV 88.3 femtoliters ()?? 03/23/2022 01:10 MCH 27.5 pg ()?? 03/23/2022 01:10 MCHC 31.2 g/dL (Low)?? 03/23/2022 01:10 Platelet Count 321 k/mm3 ()?? 03/23/2022 01:10 RDW-SD 45.1 femtoliters ()?? 03/23/2022 01:10 MPV 9.5 femtoliters ()?? 03/23/2022 01:10 Nucleated RBC (Automated) 0.0 #/100 WBC'S ()?? 03/23/2022 01:10 Abs. NRBC 0.0 k/mm3 ()?? 03/23/2022 01:10 ?? CARDIAC High Sensitivity Troponin (HSTnT) 52 ng/L (High)?? 03/21/2022 21:29 ? CHEM GENERAL Sodium 142 mmol/L ()?? 03/23/2022 01:10 Potassium 4.8 mmol/L ()?? 03/23/2022 01:10 Chloride 106 mmol/L ()?? 03/23/2022 01:10 Bicarbonate Level 27 mmol/L ()?? 03/23/2022 01:10 Anion Gap 9 ()?? 03/23/2022 01:10 Glucose Level 100 mg/dL (High)?? 03/23/2022 01:10 BUN 20 mg/dL ()?? 03/23/2022 01:10 Creatinine-Blood 0.8 mg/dL ()?? 03/23/2022 01:10 Estimated GFR Creatinine 109 ML/MIN/1.73 M2 ()?? 03/23/2022 01:10 Calcium 8.8 mg/dL ()?? 03/23/2022 01:10 Phosphorus 4.0 mg/dL ()?? 03/23/2022 01:10 Magnesium 2.2 mg/dL ()?? 03/23/2022 01:10 Lipase 27 units/L ()?? 03/21/2022 21:29 ? ESULT: CT Abd/Pelvis W/ IV Contrast Only CT Abd/Pelvis W/ IV Contrast Only? Reason: Other:; epigastric pain; Clinical Question(s): Pancreatitis; Order Comment: ?? TECHNIQUE: Spiral CT through the abdomen and pelvis with IV contrast formatted in 3 planes. 100 cc of Omnipaque 300 was administered intravenously. This study was performed without oral contrast. Weight-based protocol using automatic tube modulation was used to optimize exposure parameters.? CTDIvol Body: 14.40 mGy, ??DLP Body: 796 mGy*cm. ? COMPARISON: 04/10/2017 CT abdomen and pelvis. ?? FINDINGS:? Support Dba View Findings, Lines and Tubes: None. ?? Visualized Chest: Mild bibasilar atelectasis. No pleural effusion. Normal heart size. No pericardial effusion. ?? Diaphragm: Normal. ?? Liver: Multiple small hypoattenuating foci scattered within the liver are too small to characterize, but probably benign in absence of a known malignancy, and similar to prior study in 2018. ?? Gallbladder: Normal. ?? Bile ducts: No biliary ductal dilation. ?? Spleen: Normal. ?? Pancreas: Normal. ?? Adrenal glands: Normal. ?? Kidneys and ureters: No hydronephrosis, stones, or suspicious masses. Tiny simple cyst at the left kidney upper pole. ?? Bladder: Normal. ?? Reproductive organs: The prostate is normal. The perineum is normal. ?? Stomach, small bowel, and large bowel: The stomach is normal. The small bowel is normal in caliber,with no evidence of bowel obstruction. The rectum is normal. The colon contains a moderate amount stool in otherwise appears normal. ?? Appendix: Not seen, but no evidence of appendicitis. ?? Peritoneum and retroperitoneum: No ascites or pneumoperitoneum. No omental or mesenteric lesions. ?? Lymph nodes: No enlarged lymph nodes. ?? Blood vessels: Normal. No aneurysm. No evidence of venous thrombosis. ?? Abdominal and pelvic wall: Unremarkable. ?? Bones: Prior discectomy at L5-S1. Degenerative changes at the inferior endplate of L1. ?? IMPRESSION:? No acute findings in the abdomen or pelvis. ? 35??minutes spent on discharge * Venkata HARKINS, Robles Heard: PERFORM Event Display: Discharge/Transfer Note Hospital Authored Date: [id number] Attending Attestation:??I have seen and evaluated this patient. ??I have discussed the case and itsmanagement with the resident and agree with the findings and plan as documented in the resident???snote. This patient was seen today by me??at??11:35 AM. Patient was ambulating in the [place]??quite frequently.?? He was with an escort at all times.?? He??appeared mildly agitated. ?? He said he was fine. ??At times he would sit in his room on the edge of the bed??and I noticed staff were trying to calm him down frequently. ??He had a constant sewing inspector as well. ?? He continues to have the??meeting??psychiatric care. ?? Vital signs are stable today afebrile. ??This is the first time I met him so I have nothing. To compare to. ??He probably??does not seem to be completely at his baseline mentally. See other details above. ?? Laboratory review: White count better at 8900. ??H&H??stable and acceptable platelet count good renal numbers good??electrolytes good??creatinine nicely improved to 0.8 from 1.3. ?? CT abdomen pelvis??yesterday??were??acceptable. ?? Assessment plan: See all details above.?? Patient stable medically. ??Ready for discharge back to??[facility]. ?? Apparently that will not be happening until tomorrow. Please see above for the rest of the details of our assessments and plans. * Arturo Ibanez MD: PERFORM Event Display: Discharge/Transfer Note Hospital Authored Date: [id number] Patient not discharging today as not amitted to [facility] yet. This will serve as today's progress note. ?? VTE Prophylaxis: lovenox ?VTE Prophylaxis Assessment: VTE Prophylaxis Ordered ?? Code Status: full code ?Order Code Status: Code Status Ordered ?? * Arturo Ibanez MD: PERFORM Event Display: Patient Education Leaflets Authored Date: [id number] Reaction to Medicine (Other Type) ?? [id number] Reaction to Medicine (Other Type) You are having a reaction to a medicine you have taken.??This may not be the same as an allergic reaction. It's an unwanted side effect of a medicine.??This can cause many symptoms, such as: ??? Dizziness or headache ??? Rash ??? Flushing or a hot feeling ??? Nausea, vomiting, or stomach pain ??? Diarrhea or constipation ??? Trouble breathing ??? High or low blood pressure ??? Dark urineor blood in urine A reaction can be an upset stomach from something such as aspirin or ibuprofen. It can also be feeling faint after taking a blood pressure medicine, feeling anxious, and many other things. Symptoms can range from very mild to very severe. In most cases, the reaction goes away in 1 to 12 hours. But it will likely happen again if you takethis same medicine. Your healthcare provider will advise you if you need to??change how much, when,or how often you take this medicine.??They may also advise you to stop using this medicine. Or yourprovider may have you switch to another one.?? Home care ??? Another medicine may be advised??to reduce your symptoms. You'll take it until the medicine???s effect wears off. Follow your healthcare provider???s advice. ??? When the medicine???s effect has worn off, there should be no more problems if you don't take the same medicine again.? Ask your provider if you should also stay away from similar medicines. Write down the information so you will remember it. ??? Be sure the medicine reaction is put into your health record. ?? Follow-up care Follow up with your healthcare provider, or as advised if your symptoms are not better in 24 hours. ?? When to get medical advice Call your healthcare provider right away if any of these occur: ??? New symptoms??that worry you ??? Your current symptoms get worse,??including rash or facial swelling ??? Symptoms are not eased by the treatment advised ??? Fever of 100.4??F??(38??C) or higher, or as advised by your provider ??? Chills ?? Call 911 Call 911 if any of these occur: ??? Trouble breathing or swallowing, or wheezing ??? Hoarse voice or trouble speaking ??? Confusion ??? Extreme drowsiness??or trouble waking up ??? Fainting or loss of consciousness ??? Fast or slow heart rate ??? Very low or very high blood pressure ??? Vomiting blood, or large amounts of blood in stool ??? Seizure ?? Last Reviewed Date: 2022 ?? 3101-1264 [employer]. All rights reserved. This information is not intended as a substitute for professional medical care. Always follow your healthcare professional's instructions. ?? Hospital Progress note * Itzel Lagunas RN: PERFORM, SIGN, VERIFY Event Display: Progress Note Hospital Authored Date: [id number] Patient: BOBBY ARMANDO Age: 51 years Sex: Male : 1970 Associated Diagnoses: None Author: Itzel Lagunas RN Problem Related to Alteration in Psychosocial : Alteration in Psychosocial Function/new 03/24/2022 4:00 EST Alteration in Psychosocial Related to Suicidal Goals & Outcomes, Psychosocial Psychosocial support will be provided to Pt/S.O. as needed, Pt will identify stressors leading up to event, Pt will state importance of adhering to medication regime, Pt/caregiver will be offered appropriate resources & support, Pt/caregiver will express feelings/needs/fears /concerns, Pt/caregiver will maintain/obtain psychological stability, Pt/caregiver will participate in coping skill counseling, Pt will be monitored for suicidal ideation, Pt will manage stressors w/out self injury Interventions, Psychosocial Assess psychosocial needs, Assess readiness to learn needed lifestyle changes, Assess/monitor level of consciousness, Collaborate with provider for psychiatric consult, Evaluate resources & support system available to pt, Offer support; discuss coping strategies, Provide a calm, supportive environment, Provide chances to express concerns/emotions/expectations, Provide info on community resources for education, support, Provide information about illness and recovery, Initiate constant sewing inspector while pt is actively suicidal, Assess environment for safety, Assesspt's suicidal ideation, Monitor effectiveness of anti-depressant medication BH Goals/Interventions, Psychosocial Yes Psychosocial, Problem Start 03/24/2022 4:24 Reviewed Plan with, Psychosocial Patient Patient Progression, Psychosocial Plan Initiation . Nursing Data Vital Signs : VITAL SIGNS SECTION 03/23/2022 23:14 EST Temperature 98.0 DegF Temperature Route Oral Pulse Rate 64 bpm Respiratory Rate 19 br/min Systolic Blood Pressure 139 mm Hg H Diastolic Blood Pressure 83 mm Hg Blood pressure sites Arm, left Mean Arterial Pressure 102 mm Hg Pulse Pressure 56 mm Hg Oxygen Saturation 97 % Mode of Delivery (Oxygen) Room air . Evaluation Pt AOx4, able to make needs known. Pt is actively suicidal and making frequent requests about staff bashing me over the head with a brick and then stating he wants to leave home. C/o headache that has gotten worse as the night progressed, administered PRN morphine with no relief per patient, offered alternative treatments for which pt refused and stated Compazine helps- coverage notified and EKG obtained for cardiac check before administration. Pt also endorses night terrors that are more violent than he has ever had before. No edema, +PP, denies CP. Lungs CTA on RA, denies resp distress. Pt refuses to answer when last BM was but denies constipation. Voiding in BR. BRT at bedside for SI pr ecautions. Bed in lowest locked position with call long in reach. See MAR and biophysical for full assessment. . Discharge Information Case Management Discharge Plan : Case Management Discharge Plan Data 03/21/2022 16:44 EST Discharge Level of Care at Discharge Inpatient Rehab Facility/Unit * Maria Antonia Bear RN: PERFORM, SIGN, VERIFY Event Display: Progress Note Hospital Authored Date: [id number] Patient: BOBBY ARMANDO Age: 51 years Sex: Male : 1970 Associated Diagnoses: None Author: Maria Antonia Bear RN Findings Problem Related to Alteration in Cardiac Function (new) : Alteration in Cardiac Function/new 03/23/2022 16:00 EST Alteration in Cardiac Status Related to Hypertension Goals & Outcomes, Cardiac Status Pt will state importance of adhering to med regime Cardiac Interventions Implemented Assess/monitor cardiac status, Assess/monitor neuro status, Assess/monitor respiratory status, Teach/encourage deep breath & cough exercises BH Goals/Interventions, Cardiac Yes Cardiac, Problem Start 03/21/2022 14:21 Reviewed Plan with, Cardiac Status Patient Patient Progression, Cardiac Status Patient progressing according to plan . Evaluation Patient A+Ox3. Patient continues to endorse SI behavior, constant sewing inspector at bedside. administered PO Valium for agitation with positive effect. Patient BP WNL. Patient complains of headache, administered one time dose IV Compazine as ordered with positive effect. Patient is medically cleared, plan is to transfer back to [facility] when bed available. . Discharge Information Case Management Discharge Plan : Case Management Discharge Plan Data 03/21/2022 16:44 EST Discharge Level of Care at Discharge Inpatient Rehab Facility/Unit * Delisa Drew RN: MODIFY, SIGN, PERFORM, SIGN, VERIFY Event Display: Progress Note Hospital Authored Date: [id number] Patient: BOBBY ARMANDO Age: 51 years Sex: Male : 1970 Associated Diagnoses: None Author: Delisa Drew RN Findings Narrative/Incidental Behavior Resource RN Note: Case discussed with RN and chart reviewed to evaluate continued use of Behavior Resource Tech (Constant Binding Machine Operator) ordered for SI. Per [facility] documentation Bobby is a 51-year-old male with past medical history of Parkinson disease, migraine, and inpatient medical hospitalization for near- syncope and fall with head injury on 01/13/22from which patient left against medical advice, who initially presented to [facility] ED on 03/18/22 for evaluation of suicidal and homicidal ideation. On 03/20/2022 patient underwent medical evaluation. Was started on levodopa???carbidopa due to history of Parkinson's disease the night of 03/20/2022. Overnight patient had 1 episode of nonbilious, nonbloody vomiting. The morning of 03/21/2022 patient's blood pressure was read to be 89/42. Later in the morning around 11 AM patient's repeat blood pressure was 220/120 and patient endorsed epigastric abdominal pain with chest pain with dizziness. At this time ADVANCED MANUFACTURING TECHNICIAN was called and stat medicine consult was placed out of concern for hypertensive emergency. Patient had 1 more episode of nonbilious, nonbloody vomiting and continue to endorse dizziness, chest pain, and epigastric abdominal pain. Stat labs were ordered along with stat EKG, and patient wassubsequently transferred to the medical floor for further management on 03/21/22. Per primary RN Maria Antonia, Bobby has been having a rough morning, got particularly tirggered after receiving a call from his mother when RN asked him if she could have Bobby's permission to speak with hismother via phone. Was given some PRN medication with effect. Unable to complete [place] Suicide Severity Scale - Repeat as he was on the phone when RN attempted assessment. Medically cleared today and [facility]. Recommendations ??? - Please continue constant sewing inspector for safety and ensure that all 1:1's are getting a report of patient at the beginning of shift - Please ensure that the 1:1 flow sheet is reviewed and signed by an RN each shift. - Review hospital suicide precautions per suicide policy posted below - Please remain vigilant about suicide precautions and environmental safety. - Offer validation and support as appropriate. - Encourage pt. to practice personal care and hygiene such as getting out of bed regularly, sittingup for meals, showering, brushing teeth and washing face daily when possible to prevent hospital deconditioning. - Call Behavior Resource team at [phone] or Cortext/page with any questions or concerns: Madeline Godwin Jessi Chu or Delisa Drew . Discharge Information Case Management Discharge Plan : Case Management Discharge Plan Data 03/21/2022 16:44 EST Discharge Level of Care at Discharge Inpatient Rehab Facility/Unit XR Abdomen AP * KATHY Jones S: TRANSCRIEnrique Davis MD: VERIFY Event Display: Result: Authored Date: [id number] XR Abdomen AP 1 view INDICATION/CLINICAL QUESTION: Reason: Constipation; Clinical Question(s): Constipation COMPARISON: 06/26/2014 FINDINGS: Normal bowel gas pattern. No evidence of obstruction. No evidence of pneumoperitoneum. No organomegaly, masses or calcifications. No acute bone findings. IMPRESSION: No significant stool throughout the colon. WSN: [id number] Ordering Physician: Arturo Ibanez Dictated By: Enrique Sanz MD Dictated Date/Time: 03/24/22 9:45 am Reviewed By: Enrique Sanz MD Signed By: Enrique Sanz MD Signed Date/Time: 03/24/22 9:45 am Transcribed By: DALI Transcribed Date/Time: 03/24/22 9:[address] Abdomen and Pelvis W contrast IV * KATHY Jones S: TRANSCRIBE Jus Palacio MD: VERIFY Event Display: Result: Authored Date: [id number] CT Abd/Pelvis W/ IV Contrast Only Reason: Other:; epigastric pain; Clinical Question(s): Pancreatitis; Order Comment: TECHNIQUE: Spiral CT through the abdomen and pelvis with IV contrast formatted in 3 planes. 100 cc of Omnipaque 300 was administered intravenously. This study was performed without oral contrast. Weight-based protocol using automatic tube modulation was used to optimize exposure parameters. CTDIvol Body: 14.40 mGy, DLP Body: 796 mGy*cm. COMPARISON: 04/10/2017 CT abdomen and pelvis. FINDINGS: Support Dba View Findings, Lines and Tubes: None. Visualized Chest: Mild bibasilar atelectasis. No pleural effusion. Normal heart size. No pericardial effusion. Diaphragm: Normal. Liver: Multiple small hypoattenuating foci scattered within the liver are too small to characterize, but probably benign in absence of a known malignancy, and similar to prior study in 2018. Gallbladder: Normal. Bile ducts: No biliary ductal dilation. Spleen: Normal. Pancreas: Normal. Adrenal glands: Normal. Kidneys and ureters: No hydronephrosis, stones, or suspicious masses. Tiny simple cyst at the left kidney upper pole. Bladder: Normal. Reproductive organs: The prostate is normal. The perineum is normal. Stomach, small bowel, and large bowel: The stomach is normal. The small bowel is normal in caliber,with no evidence of bowel obstruction. The rectum is normal. The colon contains a moderate amount stool in otherwise appears normal. Appendix: Not seen, but no evidence of appendicitis. Peritoneum and retroperitoneum: No ascites or pneumoperitoneum. No omental or mesenteric lesions. Lymph nodes: No enlarged lymph nodes. Blood vessels: Normal. No aneurysm. No evidence of venous thrombosis. Abdominal and pelvic wall: Unremarkable. Bones: Prior discectomy at L5-S1. Degenerative changes at the inferior endplate of L1. IMPRESSION: No acute findings in the abdomen or pelvis. Preliminary findings were reported by virtual radiology. No significant discrepancy. WSN: [id number] Ordering Physician: Yaneth Puckett Dictated By: Jus Palacio MD Dictated Date/Time: 03/22/22 10:31 a Reviewed By: Jus Palacio MD Signed By: Jus Palacio MD Signed Date/Time: 03/22/22 10:31 am Transcribed By: DALI Transcribed Date/Time: 03/22/22 10:27 am Patient Care team information Care Team Personnel Name: Preethi Jaramillo RN Position: S RN Member Role: Primary Care Nurse Name: Nuria Reyna RN Position: S RN Member Role: Primary Care Nurse Name: Yesica Carmen RN Position: S RN Member Role: Primary Care Nurse Name: Not on Staff, PCP Position: [facility] Physician (General Medicine) Member Role: PCP Name: Adriano Duque RN Position: S RN Member Role: Primary Care Nurse Name: Shamika Carpenter RN Position: S RN Member Role: Primary Care Nurse Care Team Related Persons Name: ALISIA PARISH Address: [place] [address]
--- OUTSIDE RECORDS SUMMARY | 2023-03-24 23:35 | XMS_ITS | Continuity of Care Document ---
Author Name Unknown Organization [facility] ter Address [address] [place] [id number]- Care Team Providers Care Sealer Sander Name Role Phone Not on Staff, PCP Primary Care Physician Unavail able Encounter [facility] [place]): 05/24/22 - 05/24/[address] [address]- Encounter Diagnosis Parkinsons(Final) - 05/24/22 Discharge Disposition: A-D/C Home Attending Physician: Magaly Morales MD Admitting Physician: Magaly Morales MD Referring Physician: Not on Staff, Referring [...] had it with a previous provider. Medications multivitamin Therapeutic Multiple Vitamins oral tablet 1 tablet, By Mouth, Daily, # 30 tablet, 0 Refills, Maintenance, 03/25/22 11:18:00 EST, Tablet, [id number], Partial fill upon patient request if the prescription is for a schedule II opioid drug., 1 tablet By Mouth Daily,x30 days, 188,... Start Date: 03/25/22 Stop Date: 04/24/22 Status: Ordered OxyCONTIN 10 mg oral tablet, extended release 10 mg, 1, tablet, By Mouth, Every 12 hours, # 28 tablet, Refills 0, Tot. Refills 0, Maintenance, 03/25/22 11:18:00 EST, Route to Pharmacy Electronically, [facility] #[id number], Partial fill upon patient request if the prescription is for a sched... Start Date: 03/25/22 Stop Date: 04/08/22 Status: Ordered QUEtiapine 100 mg oral tablet 100 mg, 1, tablet, By Mouth, Daily at bedtime, # 30 tablet, Refills 0, Tot. Refills 0, Maintenance,03/25/22 11:20:00 EST, Route to Pharmacy Electronically, [facility] #[id number], Partial fill upon patient request if the prescription is for a sc... Start Date: 03/25/22 Stop Date: 04/24/22 Status: Ordered QUEtiapine 50 mg oral tablet 1 tablet = 50 mg, By Mouth, 2 times a day, # 60 tablet, 0 Refills, Maintenance, 03/25/22 11:22:00 EST, Tablet, [facility] #[id number], Partial fill upon patient request if the prescription is for a schedule II opioid drug., 188, cm, 03/25/22 8:21... Start Date: 03/25/22 Stop Date: 04/24/22 Status: Ordered SEROquel 25 mg oral tablet 25 mg, 1, tablet, By Mouth, 3 times a day, PRN, # 90 tablet, Refills 0, Tot. Refills 0, Maintenance, Anxiety, 03/25/22 11:20:00 EST, Route to Pharmacy Electronically, [facility] #[id number], Partial fill upon patient request if the prescription i... Start Date: 03/25/22 Stop Date: 04/24/22 Status: Ordered Problem List Condition Confirmation Course Effective Dates Status Health St atus Informant Chronic back pain Confirmed Active Agitation Confirmed Active Parkinson disease Confirmed Active Trauma and stressor-related disorder Confirmed Active Suicidal ideation Confirmed 2017 Active Vital Signs Most recent to oldest [Reference Range]: 1 Oxygen Saturation [94-100 %] 99 % (05/24/22 12:12 PM) Pulse Rate [55-90 bpm] 78 bpm (05/24/22 12:12 PM) Blood Pressure [90-138/55-84 mm Hg] 101/ 67mm Hg (05/24/22 12:12 PM) Respiratory Rate [16-30 br/min] 18 br/mi n (05/24/22 12:12 PM) Temperature [96.8-100.4 DegF] 97.4 DegF (05/24/22 12:12 PM) Mode of Delivery (Oxygen) Room air (05/24/22 12:12 PM) Temperature Route Oral (05/24/22 12:12 PM) Social History Social History Type Response Smoking Status 5-9 cigarettes (betw een 1/4 to 1/2 pack)/day in last 30 days; Interested in cessation: No; Patient wants NRT during admission Yes entered on: 03/19/22 Sex Patient Care team information Care Team Personnel Name: Preethi Jaramillo RN Position: [facility] RN Member Role: Primary Care Nurse Name: Nuria Reyna RN Position: [facility] RN Member Role: Primary Care Nurse Name: Yesica Carmen RN Position: [facility] RN Member Role: Primary Care Nurse Name: Not on Staff, PCP Position: [facility] Physician (General Medicine) Member Role: PCP Name: Adriano Duque RN Position: [facility] RN Member Role: Primary Care Nurse Name: Shamika Carpenter RN Position: [facility] RN Member Role: Primary Care [facility] Attending Position: [facility] ED Attendings Patient Name: Magaly Morales MD Position: [facility] Resident Member Role: Admitting Physician Address: Address: [address] [place] [address] [place], [place] [address] Name: Genevieve Cheney Position: [facility] ED TA [facility] Member Role: Flume Worker Name: Madeline Moreno RN Position: [facility] ED RN W/OE and Tasks Member Role: Patient Care Provider Care Team Related Persons Name: ALISIA PARISH Address: [address] [address]
--- OUTSIDE RECORDS SUMMARY | 2023-03-24 23:35 | XMS_ITS | Continuity of Care Document ---
Author Name Unknown Organization [facility] ter Address [address] [place] [id number]- Care Team Providers Care Propagator Name Role Phone Not on Staff, PCP Primary Care Physician Unavail able Encounter [facility] Date(s): 01/28/23 - 01/28/[address] [address]- Encounter Diagnosis Headache(Final) - 01/28/23 Discharge Disposition: A-D/C Home Attending Physician: Gabe Lema MD Admitting Physician: Gabe Lema MD Referring Physician: Not on Staff, Referring [...] Marcello rded tetanus/diphtheria/pertussis, acel(Tdap) 03/05/10 Recorded Medications Acetaminophen Tablet 975 mg, Tablet, By Mouth, Once, STAT, 01/28/23 8:09:00 EDT, Stop date 01/28/23 8:09:00 EDT Start Date: 01/28/23 Stop Date: 01/28/23 Status: Completed cephalexin monohydrate 500 mg oral capsule 1 capsule = 500 mg, By Mouth, Every 12 hours, # 10 capsule, 0 Refills, Maintenance, 01/12/23 2:36:00 EDT, Capsule, [facility] #[id number], Partial fill upon patient request if the prescription is for a schedule II opioid drug., 188, cm, 01/11/23... Start Date: 01/12/23 Stop Date: 01/17/23 Status: Ordered diazepam 2 mg oral tablet 2 mg, 1, tablet, By Mouth, Daily, Refills 0, Maintenance, 01/06/23 22:08:00 EDT, Partial fill upon patient request if the prescription is for a schedule II opioid drug. Start Date: 01/06/23 Status: Ordered multivitamin Therapeutic Multiple Vitamins oral tablet 1 tablet, By Mouth, Daily, # 30 tablet, 0 Refills, Maintenance, 03/25/22 11:18:00 EST, Tablet, [facility] #[id number], Partial fill upon patient request if the prescription is for a schedule II opioid drug., 1 tablet By Mouth Daily,x30 days, 188,... Start Date: 03/25/22 Stop Date: 04/24/22 Status: Ordered OxyCONTIN 10 mg oral tablet, extended release 10 mg, 1, tablet, By Mouth, Every 12 hours, # 28 tablet, Refills 0, Tot. Refills 0, Maintenance, 03/25/22 11:18:00 EST, Route to Pharmacy Electronically, [facility] #[id number], Partial fill upon patient request if the prescription is for a sched... Start Date: 03/25/22 Stop Date: 04/08/22 Status: Ordered zolpidem 10 mg oral tablet 1 tablet = 10 mg, By Mouth, Daily at bedtime, PRN as needed for insomnia, # 12 tablet, 0 Refills, Maintenance, 01/07/23 0:35:00 EDT, Tablet, [facility] #[id number], Partial fill upon patient request if the [...] Exam Date Time Procedure Performing Provider Status 01/28/23 11:[address] Abd/Pelvis W/ IV Contrast Only Claudine Lenz; Auth (Verified) Notes: (CT Abd/Pelvis W/ IV Contrast Only) Reason For Exam: LLQ abdominal pain;Other: RESULT: CT Abd/Pelvis W/ IV Contrast Only CT Abd/Pelvis W/ IV Contrast Only Hx of Present Illness: states he hasn't slept for 2 weeks. Reports seizure 24 hours ago. Here c o posterior headache all day yesterday. Has been taking Tylenol Migraine with no relief. Endorses nausea, photosensitivity.; Reason: Other:; LLQ abdominal pain; Clinical Question(s): Abscess; Order Comment: TECHNIQUE: Spiral CT through the abdomen and pelvis with IV contrast formatted in 3 planes. 100 cc of Omnipaque 300 was administered intravenously. This study was performed without oral contrast. Weight-based protocol using automatic tube modulation was used to optimize exposure parameters. CTDIvol Body: 13.90 mGy, DLP Body: 771 mGy*cm. COMPARISON: 03/22/2022. FINDINGS: Sales Engineer Account Manager View Findings, Lines and Tubes: None. Visualized Chest: Bibasilar atelectasis. No pleural effusion. The heart is normal in size. No pericardial effusion. Diaphragm: Normal. Liver: Multiple subcentimeter low attenuation liver lesions which are too small to fully characterize, but likely represent simple cysts.. Gallbladder: There is gallbladder sludge. Bile ducts: No biliary ductal dilation. Spleen: Normal. Pancreas: Normal. Adrenal glands: Normal. Kidneys and ureters: No hydronephrosis, stones, or suspicious masses. There is a small cyst in the upper pole of the left kidney. Bladder: Normal. Reproductive organs: Unremarkable. Stomach, small bowel, and large bowel: There is moderate amount of stool throughout the colon. Distal rectal wall thickening which may be due to under distention versus proctitis. Appendix: The appendix is surgically absent Peritoneum and retroperitoneum: No ascites or pneumoperitoneum. No omental or mesenteric lesions. Lymph nodes: No enlarged lymph nodes. Blood vessels: Normal. No aneurysm. No evidence of venous thrombosis. Abdominal and pelvic wall: Unremarkable. Bones: No acute abnormality. ACDF at L5-S1. Mild disc degenerative disease throughout the lumbar spine. IMPRESSION: Distal rectal underdistention versus proctitis. Recommend clinical correlation. Moderate amount of stool throughout the colon. WSN: [id number] Ordering Physician: Sebastien Ortiz Dictated By: Enrique Sanz MD Dictated Date/Time: 01/28/23 12:03 p Reviewed By: Enrique Sanz MD Signed By: Enrique Sanz MD Signed Date/Time: 01/28/23 12:03 pm Transcribed By: DALI Transcribed Date/Time: 01/28/23 11:52 am * Exam Date Time Procedure Performing Provider Status 01/28/23 11:[address] Head/Brain W/O Contrast Iván Lenz; Auth (Verified) Notes: (CT Head/Brain W/O Contrast) Reason For Exam: Headache(s) RESULT: CT Head/Brain W/O Contrast CT Head/Brain W/O Contrast INDICATION: Hx of Present Illness: states he hasn't slept for 2 weeks. Reports seizure 24 hours ago. Here c o posterior headache all day yesterday. Has been taking Tylenol Migraine with no relief. Endorses nausea, photosensitivity.; Reason: Headache(s); Clinical Question(s): Hematoma; Order Comment: TECHNIQUE: Noncontrast head CT using axial technique and reconstructed in axial and coronal planes.Iterative reconstruction techniques are used to optimize dose and image quality. CTDIvol Head: 48.10 mGy, DLP Head: 772 mGy*cm. COMPARISON: 03/28/2022 FINDINGS: Sales Engineer Account Manager view findings, lines and tubes: None. BRAIN AND EXTRA-AXIAL SPACES: No parenchymal hemorrhage, midline shift, or mass effect. Mario-white matter differentiation is wellpreserved. No acute infarct. Ventricles, sulci, and basilar cisterns are normal. Mild low-density white matter changes. No subarachnoid hemorrhage. No subdural or epidural collection. CALVARIUM, SKULL BASE, AND SOFT TISSUES: No fractures or suspicious bony lesions. The paranasal sinuses and mastoid air cells are clear. Visualized orbits and globes are intact. The extracranial soft tissues are unremarkable. IMPRESSION: No acute intracranial pathology. Mild chronic small vessel ischemic changes. WSN: [id number] Ordering Physician: Genaro Martinez Dictated By: Enrique Sanz MD Dictated Date/Time: 01/28/23 11:26 a Reviewed By: Enrique Sanz MD Signed By: Enrique Sanz MD Signed Date/Time: 01/28/23 11:26 am Transcribed By: DALI Transcribed Date/Time: 01/28/23 11:25 am Vital Signs Most recent to oldest [Reference Range]: 1 2 3 Weight 79.5 kg (01/28/23 1:47 AM) Oxygen Saturation [94-100 %] 100 % (01/28/23 2:53 PM) 99 % (01/28/23 9:19 AM) 100 % (01/28/23 5:30 AM) Pulse Rate [55-90 bpm] 98 bpm *H* (01/28/23 2:53 PM) 92 bpm *H* (01/28/23 9:19 AM) 90 bpm (01/28/23 5:30 AM) Blood Pressure [90-138/55-84 mm Hg] 116/83mm Hg (01/28/23 2:53 PM) 142/106mm Hg *H* (01/28/23 9:19 AM) 178/112mm Hg *H* (01/28/23 5:30 AM) Respiratory Rate [16-30 br/min] 12 br/min *L* (01/28/23 2:53 PM) 18 br/min (01/28/23 12:27 PM) 16 br/min (01/28/23 9:19 AM) Temperature [96.8-100.4 DegF] 97.7 DegF (01/28/23 9:19 AM) 98.6 DegF (01/28/23 5:30 AM) 98.3 DegF (01/28/23 1:47 AM) Mode of Delivery (Oxygen) Room air (01/28/23 2:53 PM) Room air (01/28/23 9:19 AM) Room air (01/28/23 5:30 AM) Blood pressure sites Arm, left (01/28/23 2:53 PM) Arm, right (01/28/23 9:19 AM) Arm, left (01/28/23 5:30 AM) Temperature Route Oral (01/28/23 9:19 AM) Oral (01/28/23 5:30 AM) Oral (01/28/23 1:47 AM) Dry Weight 79.5 kg (01/28/23 1:47 AM) Weight Obtained Via Patient/family state d (01/28/23 1:47 AM) Dry Weight Obtained Via Patient/family s tated (01/28/23 1:47 AM) Social History Social History Type Response Smoking Status 5-9 cigarettes (betw een 1/4 to 1/2 pack)/day in last 30 days; Interested in cessation: No; Patient wants NRT during admission Yes entered on: 03/19/22 Sex Male Consult note * [place]: PERFORM, MODIFY Event Display: Consultation Note Authored Date: [id number] Patient: ??BOBBY ARMANDO ? Age:??52 Years?Sex:??Male?:??1970?? Chief Complaint/Reason for Consultation Coming from home, bhn was at place of residence and pt requested an eval. EMS called for headache, cp, and insomnia. Nina any SI/HI. Calm/cooperative for ems. History of Present Illness 52-year-old right-handed man with a history of Parkinson's disease followed by Dr. Cuenca??years ago,??anxiety??and agitation,??who came in complaining of headache??chest pain and insomnia.?? He self-reported??awaking??from sleep at 1 point and seeing the??bed all messed up??and relating this may have been a seizure.?? He also relays that??he was seen once at??[facility] and told??he had a seizure??but could not relay??specifically??why they thought it he had a seizure and denies ever having??an EEG in the past.?? He is not on seizure medications. ??He is currently followed by a neurologist??at [facility] for his movement disorder.?? He does relay that??he had a sleep??disorder in the [place]. ??And he currently has weeks of??insomnia??but??does not think any pharmacotherapy will??his insomnia currently.?? He says??he has had trouble??with sleep for the last??couple of weeks but does not??relay a certain precipitant??or new medication or illness??leading up to it.?? No recent head trauma.?? In discussion with??ER providers no??witnessed spells in the ED concerning for seizure activity. Review of Systems Denies recent infection or illness. Objective Vital Signs?? Temperature: 97.7 DegF (01/28/23 09:19:00) Temperature Route: Oral (01/28/23 09:19:00) Pulse Rate:??98 bpm??High (01/28/23 14:53:00) Respiratory Rate:??12 br/min??Low (01/28/23 14:53:00) Systolic Blood Pressure: 116 mm Hg (01/28/23 14:53:00) Diastolic Blood Pressure: 83 mm Hg (01/28/23 14:53:00) Blood pressure sites: Arm, left (01/28/23 14:53:00) Mean Arterial Pressure: 94 mm Hg (01/28/23 14:53:00) Pulse Pressure: 33 mm Hg (01/28/23 14:53:00) Oxygen Saturation: 100 % (01/28/23 14:53:00) Mode of Delivery (Oxygen): Room air (01/28/23 14:53:00) ? Intake/Output? No Data Available ? Physical Exam Gen- NAD appears anxious and restless?? CV- RRR no m/r/g lungs- CTA bilaterally extremities- no edema or eccymosis.?? R??hand appears dirty with possible fecal matter ?? neuro- mentation- alert and oriented x person, place, time, and disposition. ??able to name simple objectssuch as watch and eyeglasses. ??He becomes irritated when I ask the current president.?? able to follow simple and complex commands. ??no aphasia.?he tends to persevorate on the fact that he hasn't slept in a couple weeks.?? eyes- PERRL, EOMI, no visual field deficits hearing- intact face- symmetric, sensation intact, flat facial expression will not smile speech- clear, fluent shrug- symmetric tongue- midline ?? Motor- good muscle bulk left hand resting tremor and with intention RUE- 5/5 ?? RLE- 5/5 LUE- 5/5 ?LLE- 5/5 ?? sensation-??intact to LT bilaterally ?? coordination- good fnf, heal to zhou, GARRETT ?? reflexes- symmetric 2+ biceps, patellar, ankle toes- mute ?? gait-??deferred ?? Assessment/Plan ??52-year-old right-handed man with a history of Parkinson's disease followed by Dr. Cuenca??years ago,??anxiety??and agitation,??who came in complaining of headache??chest pain and insomnia.?? He self-reported??awaking??from sleep at 1 point and seeing the??bed all messed up??and relating this may have been a seizure.?? He also relays that??he was seen once at??[facility] and told??he had a seizure??but could not relay??specifically??why they thought it he had a seizure and denies ever having??an EEG in the past.?? He is not on seizure medications. ??He is currently followed by a neurologist??at [facility] for his movement disorder.?? He does relay that??he had a sleep??disorder in the past. ??And he currently has weeks of??insomnia??but??does not think any pharmacotherapy will??his insomnia currently.?? He says??he has had trouble??with sleep for the last??couple of weeks but doesnot??relay a certain precipitant??or new medication or illness??leading up to it.?? No recent head t rauma.?? In discussion with??ER providers no??witnessed spells in the ED concerning for seizure activity. ?? Parkinsons disease insomnia ?? It is unclear??if this patient??has??a concern for seizure disorder given his??mental status??it is??difficult to get a history??although he relays??reported??seizure at [facility].?? Neurologic exam other than mood??is normal.?? Patient had a head CT which was normal.?? Patient has a history of acting out his dreams in the past??per Dr. Kim note??and wonder if this??falling??asleep and noting??the bed is messed up is actually??movements while he is asleep rather than??seizure. ?? Given the patient??is not actively having a seizure and??suspicion for seizure is low would defer further work-up to patient's outpatient??neurologist at [facility] If patient has any activity while in the hospital??concerning for seizure??you can contact??us again??for reevaluation Please obtain??[facility] records to see if there is any??information of??seizure disorder or concern for seizure disorders that may aid??evaluation. ? d/w ED D.w Dr Oliva will sign off call with questions Histories Allergies Allergies ?(Active and Proposed Allergies [...] family history recorded. ? Medications Home Medications Cephalexin (cephalexin monohydrate 500 mg oral capsule)?1?capsule?500?Milligram?By Mouth?Every 12 hours?for 5?Days Diazepam (diazepam 2 mg oral tablet)?2?Milligram?1?tablet?By Mouth?Daily Multivitamin (multivitamin Therapeutic Multiple Vitamins oral tablet)?1?tab(s)?By Mouth?Daily?for 30?Days Oxycodone (OxyCONTIN 10 mg oral tablet, extended release)?10?Milligram?1?tablet?By Mouth?Every 12 hours?for 14?Days Zolpidem (zolpidem 10 mg oral tablet)?1?tab(s)?10?Milligram?By Mouth?Daily at bedtime?as needed?as needed for insomnia ? Inpatient Medications Medications (2) Active SCHEDULED: (1) Potassium Chloride 20 mEq Packet (Potassium Chloride Packet) ??40 mEq, By Mouth, Once CONTINUOUS: (0) PRN: (1) Lorazepam 2 mg Inj Syringe (Ativan Inj) ??1 mg, IV Push Slowly, Once ? Results Recent Labs BLOOD COUNT & DIFF WBC 7.5 k/mm3 ()?? 01/28/2023 03:44 RBC 4.60 m/mm3 (Low)?? 01/28/2023 03:44 Hgb 13.1 Gm/dL (Low)?? 01/28/2023 03:44 Hct 39.8 % (Low)?? 01/28/2023 03:44 MCV 86.5 femtoliters ()?? 01/28/2023 03:44 MCH 28.5 pg ()?? 01/28/2023 03:44 MCHC 32.9 g/dL (Low)?? 01/28/2023 03:44 Platelet Count 461 k/mm3 (High)?? 01/28/2023 03:44 RDW-SD 44.0 femtoliters ()?? 01/28/2023 03:44 MPV 9.4 femtoliters ()?? 01/28/2023 03:44 Nucleated RBC (Automated) 0.0 #/100 WBC'S ()?? 01/28/2023 03:44 Abs. NRBC 0.0 k/mm3 ()?? 01/28/2023 03:44 Abs. Neut 5.1 k/mm3 ()?? 01/28/2023 03:44 Abs. Lymph 1.7 k/mm3 ()?? 01/28/2023 03:44 Abs. [place] 0.6 k/mm3 ()?? 01/28/2023 03:44 Abs. Eo 0.0 k/mm3 ()?? 01/28/2023 03:44 Abs. Baso 0.0 k/mm3 ()?? 01/28/2023 03:44 Neut % 67.8 % ()?? 01/28/2023 03:44 Lymph % 23.2 % ()?? 01/28/2023 03:44 [place] % 8.1 % ()?? 01/28/2023 03:44 Eos % 0.3 % ()?? 01/28/2023 03:44 Baso % 0.3 % ()?? 01/28/2023 03:44 Imm Gran 0.3 % ()?? 01/28/2023 03:44 Abs. Imm Gran 0.0 k/mm3 ()?? 01/28/2023 03:44 ?? CHEM GENERAL Sodium 143 mmol/L ()?? 01/28/2023 03:44 Potassium 3.5 mmol/L (Low)?? 01/28/2023 03:44 Chloride 102 mmol/L ()?? 01/28/2023 03:44 Bicarbonate Level 24 mmol/L ()?? 01/28/2023 03:44 Anion Gap 17 ()?? 01/28/2023 03:44 Glucose Level 101 mg/dL (High)?? 01/28/2023 03:44 BUN 9 mg/dL ()?? 01/28/2023 03:44 Creatinine-Blood 0.9 mg/dL ()?? 01/28/2023 03:44 Estimated GFR Creatinine 105 ML/MIN/1.73 M2 ()?? 01/28/2023 03:44 Calcium 10.1 mg/dL ()?? 01/28/2023 03:44 ?? ENDOCRINE/TUMOR MARKER TSH 0.30 uIU/mL (Low)?? 01/28/2023 03:44 Free T4 1.44 ng/dL ()?? 01/28/2023 03:44 ?? UA/URINALYSIS Appear/Color, Urine COLORLESS ()?? 01/28/2023 03:10 Specific [place], Urine 1.010 ()?? 01/28/2023 03:10 pH, Urine 6.5 ()?? 01/28/2023 03:10 Albumin, Urine NEGATIVE ()?? 01/28/2023 03:10 Glucose, Urine NEGATIVE ()?? 01/28/2023 03:10 Ketones, Urine TRACE (Abnormal)?? 01/28/2023 03:10 Bilirubin, Urine NEGATIVE ()?? 01/28/2023 03:10 Hemoglobin, Urine NEGATIVE ()?? 01/28/2023 03:10 Nitrite, Urine NEGATIVE ()?? 01/28/2023 03:10 Leukocyte, Urine NEGATIVE ()?? 01/28/2023 03:10 Urobilinogen NORMAL mg/dL ()?? 01/28/2023 03:10 WBC's, Urine <1 /HPF ()?? 01/28/2023 03:10 RBC's, Urine <1 /HPF ()?? 01/28/2023 03:10 Mucus SLIGHT /LPF ()?? 01/28/2023 03:10 Hold Urine Culture Testing available 48 hours from time of collection. ()?? 01/28/2023 03:10 ? Abnormal Labs ?? BLOOD COUNT & DIFF ??Abs. Imm Gran ??0.0 k/mm3 () ??01/28/2023 03:44 ??Abs. NRBC ??0.0 k/mm3 () ??01/28/2023 03:44 ??Hct ??39.8 % (Low) ??01/28/2023 03:44 ??Hgb ??13.1 Gm/dL (Low) ??01/28/2023 03:44 ??Imm Gran ??0.3 % () ??01/28/2023 03:44 ??MCHC ??32.9 g/dL (Low) ??01/28/2023 03:44 ??Nucleated RBC (Automated) ??0.0 #/100 WBC'S () ??01/28/2023 03:44 ??Platelet Count ??461 k/mm3 (High) ??01/28/2023 03:44 ??RBC ??4.60 m/mm3 (Low) ??01/28/2023 03:44 ??RDW-SD ??44.0 femtoliters () ??01/28/2023 03:44 ? CHEM GENERAL ??Estimated GFR Creatinine ??105 ML/MIN/1.73 M2 () ??01/28/2023 03:44 ??Glucose Level ??101 mg/dL (High) ??01/28/2023 03:44 ??Potassium ??3.5 mmol/L (Low) ??01/28/2023 03:44 ? ENDOCRINE/TUMOR MARKER ??TSH ??0.30 uIU/mL (Low) ??01/28/2023 03:44 ? UA/URINALYSIS ??Albumin, Urine ??NEGATIVE () ??01/28/2023 03:10 ??Appear/Color, Urine ??COLORLESS () ??01/28/2023 03:10 ??Bilirubin, Urine ??NEGATIVE () ??01/28/2023 03:10 ??Glucose, Urine ??NEGATIVE () ??01/28/2023 03:10 ??Hemoglobin, Urine ??NEGATIVE () ??01/28/2023 03:10 ??Hold Urine Culture ??Testing available 48 hours from time of collection. () ??01/28/2023 03:10 ??Ketones, Urine ??TRACE (Abnormal) ??01/28/2023 03:10 ??Leukocyte, Urine ??NEGATIVE () ??01/28/2023 03:10 ??Mucus ??SLIGHT /LPF () ??01/28/2023 03:10 ??Nitrite, Urine ??NEGATIVE () ??01/28/2023 03:10 ??Urobilinogen ??NORMAL mg/dL () ??01/28/2023 03:10 ? Note: Critical results are displayed in red. ? * René Oliva MD: PERFORM Event Display: Consultation Note Authored Date: ?? I personally reviewed the case and agree with the findings and plan as noted below. Patient Care team information Care Team Personnel Name: Preethi Jaramillo RN Position: [facility] RN Member Role: Primary Care Nurse Name: Nuria Reyna RN Position: [facility] RN Member Role: Primary Care Nurse Name: Yesica Carmen RN Position: S RN Member Role: Primary Care Nurse Name: Not on Staff, PCP Position: [facility] Physician (General Medicine) Member Role: PCP Name: Adriano Duque RN Position: S RN Member Role: Primary Care Nurse Name: Shamika Carpenter RN Position: [facility] RN Member Role: Primary Care Nurse Name: Jalen Sandhu MD Position: [facility] Resident Member Role: ED Resident Address: Address: [address] [place] [address]- Name: Gabe Lema MD Position: [facility] ED Medicine MD Member Role: Admitting Physician Address: Address: [address] [place] [address]- Name: Joaquín Oseguera Position: [facility] ED TA [facility] Name: Marlena Serrano RN Position: [facility] ED RN W/OE and Tasks Member Role: Patient Care Provider Care Team Related Persons Name: ALISIA PARISH Address: home [address] [place] [address] Name: ALLEN PARISH Address: home [address] [place] [address]
--- OUTSIDE RECORDS SUMMARY | 2023-03-24 23:35 | XMS_ITS | Continuity of Care Document ---
Author Name Unknown Organization [facility] ter Address [address] [place] [id number]- Care Team Providers Care Plater Supervisor Name Role Phone Not on Staff, PCP Primary Care Physician Unavail able Encounter [facility] Date(s): 09/24/21 - 09/25/[address] [address]- Discharge Disposition: A-D/C Home Attending Physician: Chan HARKINS, Faisal Admitting Physician: Catherine Umanzor MD Referring Physician: Not on Staff, Referring [...] 09/24/21 Status: Ordered Fioricet Tablet 1 tablet, Tablet, By Mouth, Every 4 hours, PRN for Headache, Routine, 09/24/21 18:59:00 EDT Notes: Butalbital 50mg, Not to exceed 4000mg of Acetaminophen per 24 hours. 325mg, Caffeine 40mg per tablet Start Date: 09/24/21 Stop Date: 09/25/21 Status: Discontinued Levodopa = 84 mg, Inhalation, 3 times [...] Status Inform ant Agitation(Confirmed) Active Suicidal ideation(Confirmed) 2017 Active Results Radiology Reports * Exam Date Time Procedure Performing Provider Status 09/24/21 8:58 AM Chest 2 Views Frontal and Lat Maria Fernanda Barney; Auth (Verified) Notes: (Chest 2 Views Frontal and Lat) Reason For Exam: Shortness of Breath RESULT: Chest 2 Views Frontal and Lat Chest 2 Views Frontal and Lat REASON: Shortness of Breath; Clinical Question(s): CHF Hx of Present Illness: Pt from home. Hx of parkinsons. Seen at [facility] last Weds for the same headache. Found to be hypertensive and discharged without changes. Pt also reports weakness, lethargy, and worsening headache.; COMPARISON: Chest x-ray 01/08/2017, CT chest 05/21/2017. FINDINGS: LINES AND TUBES: None. LUNGS AND PLEURA: Clear lungs. Normal pulmonary vascularity. No pleural effusion. No pneumothorax. HEART, MEDIASTINUM AND EDITA: Heart is normal in size. Normal upper mediastinal and hilar contour. BONES AND SOFT TISSUES: No acute abnormality. IMPRESSION: No acute abnormality. I have personally reviewed the images and I agree with this report. WSN: [id number] Ordering Physician: Brian Fang Dictated By: Gus Chavez DO Dictated Date/Time: 09/24/21 9:17 am Reviewed By: Alec Wren MD, V Signed By: Alec Wren MD, V Signed Date/Time: 09/24/21 9:22 am Transcribed By: DALI Transcribed Date/Time: 09/24/21 9:02 am Vital Signs Most recent to oldest [Reference Range]: 1 2 3 Oxygen Saturation [94-100 %] 97 % (09/25/21 11:24 AM) 100 % (09/25/21 7:18 AM) 96 % (09/25/21 3:46 AM) Pulse Rate [55-90 bpm] 80 bpm (09/25/21 11:24 AM) 75 bpm (09/25/21 7:18 AM) 87 bpm (09/25/21 3:46 AM) Blood Pressure [90-138/55-84 mm Hg] 135/93mm Hg (09/25/21 11:24 AM) 129/84mm Hg (09/25/21 7:18 AM) 115/69mm Hg (09/25/21 3:46 AM) Respiratory Rate [16-30 br/min] 17 br/min (09/25/21 11:24 AM) 18 br/min (09/25/21 10:15 AM) 18 br/min (09/25/21 9:51 AM) Temperature [96.8-100.4 DegF] 97.2 DegF (09/25/21 11:24 AM) 97.5 DegF (09/25/21 7:18 AM) 98.0 DegF (09/25/21 3:46 AM) Mode of Delivery (Oxygen) Room air (09/25/21 11:24 AM) Room air (09/25/21 7:18 AM) Room air (09/25/21 3:46 AM) Blood pressure sites Arm, left (09/25/21 3:46 AM) Arm, right (09/24/21 10:39 PM) Arm, left (09/24/21 6:04 PM) Temperature Route Oral (09/25/21 11:24 AM) Oral (09/25/21 7:18 AM) Oral (09/25/21 3:46 AM) Social History Social History Type Response Smoking Status Current every day pedro delong entered on: 06/28/14 Sex
--- OUTSIDE RECORDS SUMMARY | 2023-03-24 23:35 | XMS_ITS | Continuity of Care Document ---
Author Name Unknown Organization [facility] ter Address [address] [place] [id number]- Care Team Providers Care Sales Representative Facility Services Name Role Phone Not on Staff, PCP Primary Care Physician Unavail able [place] [facility] [place]23 - 02/06/[address] [address]- Discharge Disposition: A-D/C Home Attending Physician: Hayley HARKINS, Chin Mandujano Admitting Physician: Chin Hardy MD Referring Physician: Not on Staff, Referring [...] tetanus/diphtheria/pertussis, acel(Tdap) 03/05/10 Recorded Medications Acetaminophen Tablet 650 mg, Tablet, By Mouth, Every 8 hours, PRN for Pain , Moderate, STAT, 02/05/23 21:57:00 EDT Start Date: 02/05/23 Stop Date: 02/06/23 Status: Discontinued cephalexin monohydrate 500 mg oral capsule 1 capsule = 500 mg, By Mouth, Every 12 hours, # 10 capsule, 0 Refills, Maintenance, 01/12/23 2:36:00 EDT, Capsule, [facility] #[id number], Partial fill upon patient request if the [...] 0 Refills, Maintenance, 03/25/22 11:18:00 EST, Tablet, [facility] #[id number], Partial fill upon patient request if the prescription is for a schedule II opioid drug., 1 tablet By Mouth Daily,x30 days, 188,... Start Date: 03/25/22 Stop Date: 04/24/22 Status: Ordered oxyCODONE 5 mg oral tablet 10 mg, Tablet, By Mouth, Every 8 hours, PRN for Pain , Moderate, Routine, 02/05/23 22:40:00 EDT Start Date: 02/05/23 Stop Date: 02/06/23 Status: Discontinued OxyCONTIN 10 mg oral tablet, extended release 10 mg, 1, tablet, By Mouth, Every 12 hours, # 28 tablet, Refills 0, Tot. Refills 0, Maintenance, 03/25/22 11:18:00 EST, Route to Pharmacy Electronically, [facility] #[id number], Partial fill upon patient request if the prescription is for a sched... Start Date: 03/25/22 Stop Date: 04/08/22 Status: Ordered zolpidem 10 mg oral tablet 1 tablet = 10 mg, By Mouth, Daily at bedtime, PRN as needed for insomnia, # 12 tablet, 0 Refills, Maintenance, 01/07/23 0:35:00 EDT, Tablet, [facility] #[id number], Partial fill upon patient request if the [...] 3 Oxygen Saturation [94-100 %] 98 % (02/06/23 9:25 AM) 98 % (02/05/23 10:21 PM) 100 % (02/05/23 7:01 PM) Pulse Rate [55-90 bpm] 80 bpm (02/06/23 9:25 AM) 76 bpm (02/05/23 10:21 PM) 97 bpm *H* (02/05/23 7:01 PM) Blood Pressure [90-138/55-84 mm Hg] 130/78mm Hg (02/06/23 9:25 AM) 149/95mm Hg *H* (02/05/23 10:21 PM) 165/102mm Hg *H* (02/05/23 7:01 PM) Respiratory Rate [16-30 br/min] 16 br/min (02/06/23 9:25 AM) 16 br/min (02/06/23 8:55 AM) 16 br/min (02/06/23 8:55 AM) Temperature [96.8-100.4 DegF] 98.5 DegF (02/06/23 9:25 AM) 98.0 DegF (02/05/23 10:21 PM) 98 DegF (02/05/23 7:01 PM) Mode of Delivery (Oxygen) Room air (02/06/23 9:25 AM) Room air (02/05/23 10:21 PM) Room air (02/05/23 7:01 PM) Blood pressure sites Arm, right (02/06/23 9:25 AM) Arm, right (02/05/23 10:21 PM) Arm, left (02/05/23 7:01 PM) Temperature Route Oral (02/06/23 9:25 AM) Oral (02/05/23 10:21 PM) Oral (02/05/23 7:01 PM) Social History Social History Type Response Smoking Status 5-9 cigarettes (betw een 1/4 to 1/2 pack)/day in last 30 days; Interested in cessation: No; Patient wants NRT during admission Yes entered on: 03/19/22 Sex Male Note * Chin Hardy MD: PERFORM, SIGN, VERIFY Event Display: Patient Education Handout Authored Date: [id number] * Chin Hardy MD: PERFORM Event Display: Patient Education Leaflets Authored Date: [id number] [facility] - If you need a Doctor or Clinic ?? 34 If You Need a Doctor or Clinic ?? Call [facility] PCP Assignment Line to help you find a doctor:?? [phone] ?? Clinics in [place], [place] For a full list of clinics:? [email or web address] ?? [facility]? [address] [phone] [facility] Internal medicine Clinic?[address]?[phone] [facility]?[address][phone] [facility]?[address][phone] [facility]?[address] [phone] [facility]?[address][phone] [facility]?[address][phone] [facility]?[address] [phone] [facility]? [address][phone] [facility]?[address][phone] [facility]?[address][phone] [facility]?[address][phone] [facility]?[address][phone] [facility]? [address][phone] [facility]?[address][phone] ? Patient Care team information Care Team Personnel Name: Preethi Jaramillo RN Position: [facility] RN Member Role: Primary Care Nurse Name: Nuria Reyna RN Position: [facility] RN Member Role: Primary Care Nurse Name: Yesica Carmen RN Position: S RN Member Role: Primary Care Nurse Name: Not on Staff, PCP Position: [facility] Physician (General Medicine) Member Role: PCP Name: Adriano Duque RN Position: [facility] RN Member Role: Primary Care Nurse Name: Shamika Carpenter RN Position: [facility] RN Member Role: Primary Care [facility] Attending Position: [facility] ED Attendings Patient Name: Chin Hardy MD Position: [facility] ED Medicine MD Member Role: Admitting Physician Address: Address: [address] [place] [address] Name: Cyndy Cutler RN Position: [facility] ED RN W/OE and Tasks Member Role: Patient Care Provider Care Team Related Persons Name: ALISIA PARISH Address: home [address] [place] [address] Name: ALLEN PARISH Address: home [address] [place] [address]
--- OUTSIDE RECORDS SUMMARY | 2023-03-24 23:35 | XMS_ITS | Continuity of Care Document ---
Author Name Unknown Organization [facility] ter Address [address] [place] [address]- Care Team Providers Care Dairy Tester Name Role Phone Not on Staff, PCP Primary Care Physician Unavail able [place] [facility] [place] 01/12/22 - 01/13/[address] [address]- Discharge Disposition: A-D/C AMA Attending Physician: Dylan Bearden MD Admitting Physician: Christian Arce MD Referring Physician: Not on Staff, Referring [...] opioid drug. Start Date: 09/20/21 Status: Ordered Multivitamin 1 tablet, By Mouth, Daily, 0 Refills, Maintenance, 10/25/13 13:24:03 Start Date: 10/25/13 Status: Ordered Oxycodone By Mouth, 0 Refills, Maintenance, 08/04/17 20:50:48 EDT Start Date: 08/04/17 Status: Ordered oxyCODONE 5 mg oral tablet 10 mg, Tablet, By Mouth, Every 4 hours, PRN for Pain , Moderate, Routine, 01/13/22 5:45:00 EDT Start Date: 01/13/22 Stop Date: 01/13/22 Status: Discontinued OxyCONTIN 10 mg oral tablet, extended release 10 mg, 1, tablet, By Mouth, Every 12 hours, Refills 0, Tot. Refills 0, Maintenance, 01/13/22 1:58:00 EDT, Partial fill upon patient request if the prescription is for a schedule II opioid drug. Start Date: 01/13/22 Status: Ordered phenelzine 15 mg oral tablet 2 tablet = 30 mg, By Mouth, 3 times a day, # 12 tablet, 0 Refills, Maintenance, 12/27/21 9:31:00 EDT, Tablet, [facility], Partial fill upon patient request if the prescription is for a schedule II opioid drug., 188, cm, 12/27/21 9:12:00... Start Date: 12/27/21 Status: Ordered Problem List Condition Confirmation Course Effective Dates Status [facility] at[facility] Informant Agitation Confirmed Active Suicidal ideation Confirmed 2017 Active Results Radiology Reports * Exam Date Time Procedure Performing Provider Status 01/12/22 5:15 PM Chest 2 Views Frontal and Lat Luis Carlos Saenz; Madie (Verified) Notes: (Chest 2 Views Frontal and Lat) Reason For Exam: trauma;Other: RESULT: Chest 2 Views Frontal and Lat Chest 2 Views Frontal and Lat Hx of Present Illness: Pt with Parkinson's fell at home, at the time of the fall he was dizzy and lightheaded; pt hit his nose during the fall.; Reason: Other:; trauma; Clinical Question(s): Trauma; Order Comment: C-collar off COMPARISON: Radiograph of the chest dated 10/01/2021. CTA chest dated 05/21/2017. FINDINGS: LINES AND TUBES: None. LUNGS AND PLEURA: No focal consolidation or pleural effusion. Normal pulmonary vascularity. No pneumothorax. HEART, MEDIASTINUM AND EDITA: Unchanged cardiomediastinal silhouette. BONES AND SOFT TISSUES: No acute abnormality. IMPRESSION: No focal consolidation or pleural effusion. WSN: [id number] Ordering Physician: Marisol Smallwood Dictated By: Cyndy Collins MD Dictated Date/Time: 01/12/22 5:23 pm Reviewed By: Cyndy Collins MD Signed By: Cyndy Collins MD Signed Date/Time: 01/12/22 5:23 pm Transcribed By: DALI Transcribed Date/Time: 01/12/22 5:18 pm Vital Signs Most recent to oldest [Reference Range]: 1 2 3 Oxygen Saturation [94-100 %] 96 % (01/13/22 5:15 AM) 96 % (01/13/22:23 AM) 95 % (01/13/22:44 AM) Pulse Rate [55-90 bpm] 70 bpm (01/13/22:15 AM) 69 bpm (01/13/22:23 AM) 75 bpm (01/13/22 12:44 AM) Blood Pressure [90-138/55-84 mm Hg] 120/75mm Hg (01/13/22 5:15 AM) 117/71mm Hg (01/13/22:23 AM) 125/75mm Hg (01/13/22 12:44 AM) Respiratory Rate [16-30 br/min] 16 br/min (01/13/22 5:54 AM) 20 br/min (01/13/22 5:15 AM) 20 br/min (01/13/22:23 AM) Temperature [96.8-100.4 DegF] 98.2 DegF (01/13/22 5:15 AM) 98.2 DegF (01/13/22:23 AM) 98.2 DegF (01/13/22 12:44 AM) Mode of Delivery (Oxygen) Room air (01/13/22 5:15 AM) Room air (01/13/22:23 AM) Room air (01/13/22 12:44 AM) Blood pressure sites Arm, left (01/13/22 5:15 AM) Arm, right (01/13/22:23 AM) Arm, left (01/13/22 12:44 AM) Temperature Route Oral (01/13/22 5:15 AM) Oral (01/13/22 3:23 AM) Oral (01/13/22 12:44 AM) Social History Social History Type Response Smoking Status Current every day pedro delong entered on: 06/28/14 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 CTA chest dated 05/21/2017. FINDINGS: LINES AND TUBES: None. LUNGS AND PLEURA: No focal consolidation or pleural effusion. Normal pulmonary vascularity. No pneumothorax. HEART, MEDIASTINUM AND EDITA: Unchanged cardiomediastinal silhouette. BONES AND SOFT TISSUES: No acute abnormality. IMPRESSION: No focal consolidation or pleural effusion. WSN: [id number] Ordering Physician: Marisol Smallwood Dictated By: Cyndy Collins MD Dictated Date/Time: 01/12/22 5:23 pm Reviewed By: Cyndy Collins MD Signed By: Cyndy Collins MD Signed Date/Time: 01/12/22 5:23 pm Transcribed By: DALI Transcribed Date/Time: 01/12/22 5:18 pm Patient Care team information Personnel Name: Not on Staff, PCP
--- OUTSIDE RECORDS SUMMARY | 2023-03-24 23:35 | XMS_ITS | Continuity of Care Document ---
Author Name Unknown Organization [facility] ter Address [address] [place] [id number]- Care Team Providers Care Credit Office Manager Name Role Phone Not on Staff, PCP Primary Care Physician Unavail able Encounter [facility] [place] Date(s): 12/27/21 - 12/27/[address] [address]- Encounter Diagnosis Tardive dyskinesia(Final) - 12/27/21 Discharge Disposition: A-D/C Home Attending Physician: Madeline Valero MD Admitting Physician: Madeline Valero MD Referring Physician: Not on Staff, Referring [...] 20:50:48 EDT Start Date: 08/04/17 Status: Ordered OxyCODONE IR Tablet 5 mg, Tablet, By Mouth, Once, STAT, 12/27/21 8:42:00 EDT, Stop date 12/27/21 8:42:00 EDT Start Date: 12/27/21 Stop Date: 12/27/21 Status: Completed phenelzine 15 mg oral tablet 2 tablet = 30 mg, By Mouth, 3 times a day, # 12 tablet, 0 Refills, Maintenance, 12/27/21 9:31:00 EDT, Tablet, [facility], Partial fill upon patient request if the prescription is for a schedule II opioid drug., 188, cm, 12/27/21 9:12:00... Start Date: 12/27/21 Status: Ordered phenelzine 15 mg oral tablet 2 tablet = 30 mg, By Mouth, 3 times a day, # 180 tablet, 0 Refills, Maintenance, 12/29/21 9:31:00 EDT, Tablet, [facility], Partial fill upon patient request if the prescription is for aschedule II opioid drug., 188, cm, 12/27/21 9:12:00... Start Date: 12/29/21 Stop Date: 01/28/22 Status: Ordered Problem List Condition Effective Dates Status Health Status Inform ant Agitation(Confirmed) Active Suicidal ideation(Confirmed) 2017 Active Vital Signs Most recent to oldest [Reference Range]: 1 2 3 Height 188 cm (12/27/21 9:12 AM) 188 cm (12/27/21 4:55 AM) 188 cm (12/27/21 4:49 AM) Weight 84.1 kg (12/27/21 9:12 AM) 84.1 kg (12/27/21 4:55 AM) 84.1 kg (12/27/21 4:49 AM) Oxygen Saturation [94-100 %] 98 % (12/27/21 10:19 AM) 97 % (12/27/21 9:12 AM) 98 % (12/27/21 4:49 AM) Pulse Rate [55-90 bpm] 68 bpm (12/27/21 10:19 AM) 73 bpm (12/27/21 9:12 AM) 75 bpm (12/27/21 4:49 AM) Body Mass Index [18.5-24.99 kg/m2] 23.79 kg/m2 (12/27/21 9:12 AM) 23.79 kg/m2 (12/27/21 4:49 AM) Blood Pressure [90-138/55-84 mm Hg] 133/96mm Hg (12/27/21 10:19 AM) 124/84mm Hg (12/27/21 9:12 AM) 143/90mm Hg *H* (12/27/21 4:49 AM) Respiratory Rate [16-30 br/min] 16 br/min (12/27/21 10:19 AM) 16 br/min (12/27/21 9:50 AM) 18 br/min (12/27/21 9:12 AM) Temperature [96.8-100.4 DegF] 97 DegF (12/27/21 10:19 AM) 97.4 DegF (12/27/21 9:12 AM) 97.7 DegF (12/27/21 4:49 AM) Mode of Delivery (Oxygen) Room air (12/27/21 10:19 AM) Room air (12/27/21 9:12 AM) Room air (12/27/21 4:49 AM) Blood pressure sites Arm, right (12/27/21 10:19 AM) Arm, left (12/27/21 9:12 AM) Arm, right (12/27/21 4:49 AM) Temperature Route Oral (12/27/21 10:19 AM) Oral (12/27/21 9:12 AM) Oral (12/27/21 4:49 AM) Dry Weight 84.1 kg (12/27/21 9:12 AM) 84.1 kg (12/27/21 4:55 AM) 84.1 kg (12/27/21 4:49 AM) Weight Obtained Via Standing scale (12/27/21 4:49 AM) Dry Weight Obtained Via Standing scale (12/27/21 4:49 AM) Social History Social History Type Response Smoking Status Current every day pedro delong entered on: 06/28/14 Sex Care Team Personnel Name: Not on Staff, PCP
--- OUTSIDE RECORDS SUMMARY | 2023-03-24 23:35 | XMS_ITS | Continuity of Care Document ---
Author Name Unknown Organization [facility] ter Address [address] [place] [id number]- Care Team Providers Care Bioinformatics Scientist Name Role Phone Not on Staff, PCP Primary Care Physician Unavail able Encounter [facility] Date(s): 02/18/23 - 02/18/[address] [address]- Encounter Diagnosis Headache(Final) - 02/18/23 Discharge Disposition: A-D/C AMA Attending Physician: Gabe Lema MD Admitting Physician: [...] 0 Refills, Maintenance, 03/25/22 11:18:00 EST, Tablet, [facility] #[id number], Partial fill upon patient request if the prescription is for a schedule II opioid drug., 1 tablet By Mouth Daily,x30 days, 188,... Start Date: 03/25/22 Stop Date: 04/24/22 Status: Ordered OxyCONTIN 10 mg oral tablet, extended release 10 mg, 1, tablet, By Mouth, Every 12 hours, # 28 tablet, Refills 0, Tot. Refills 0, Maintenance, 03/25/22 11:18:00 EST, Route to Pharmacy Electronically, [facility] #[id number], Partial fill upon patient request if the prescription is for a sched... Start Date: 03/25/22 Stop Date: 04/08/22 Status: Ordered SEROquel 100 mg oral tablet 100 mg, 1, tablet, By Mouth, Daily at bedtime, Refills 0, Maintenance, 02/14/23 8:45:00 EST, Partial fill upon patient request if the prescription is for a schedule II opioid drug. Start Date: 02/14/23 Status: Ordered Toradol Inj 10 mg, Injection, IV Push Slowly, Once, STAT, 02/18/23 14:40:00 EST, Stop date 02/18/23 14:40:00 EST Start Date: 02/18/23 Stop Date: 02/18/23 Status: Completed zolpidem 10 mg oral tablet 1 tablet = 10 mg, By Mouth, Daily at bedtime, PRN as needed for insomnia, # 12 tablet, 0 Refills, Maintenance, 01/07/23 0:35:00 EDT, Tablet, [facility] #[id number], Partial fill upon patient request if the [...] 3 Oxygen Saturation [94-100 %] 98 % (02/18/23 1:30 PM) 97 % (02/18/23 10:47 AM) Pulse Rate [55-90 bpm] 73 bpm (02/18/23 1:30 PM) 75 bpm (02/18/23 10:47 AM) Blood Pressure [90-138/55-84 mm Hg] 154/103mm Hg *H* (02/18/23 1:30 PM) 162/101mm Hg *H* (02/18/23 10:47 AM) Respiratory Rate [16-30 br/min] 16 br/min (02/18/23 4:08 PM) 16 br/min (02/18/23 1:30 PM) 18 br/min (02/18/23 10:47 AM) Temperature [96.8-100.4 DegF] 97.3 DegF (02/18/23 1:30 PM) 97.7 DegF (02/18/23 10:47 AM) Mode of Delivery (Oxygen) Room air (02/18/23 1:30 PM) Room air (02/18/23 10:47 AM) Blood pressure sites Arm, left (02/18/23 1:30 PM) Arm, left (02/18/23 10:47 AM) Temperature Route Oral (02/18/23 1:30 PM) Oral (02/18/23 10:47 AM) Social History Social History Type Response Smoking Status 5-9 cigarettes (betw een 1/4 to 1/2 pack)/day in last 30 days; Interested in cessation: No; Patient wants NRT during admission Yes entered on: 03/19/22 Sex Male Patient Care team information Care Team Personnel Name: Preethi Jaramillo RN Position: [facility] RN Member Role: Primary Care Nurse Name: Thaddeus Ni RN Position: [facility] RN Member Role: Primary Care Nurse Name: Nuria Reyna RN Position: [facility] RN Member Role: Primary Care Nurse Name: Yesica Carmen RN Position: [facility] RN Member Role: Primary Care Nurse Name: Not on Staff, PCP Position: [facility] Physician (General Medicine) Member Role: PCP Name: Adriano Duque RN Position: [facility] RN Member Role: Primary Care Nurse Name: Shamika Carpenter RN Position: [facility] RN Member Role: Primary Care Nurse Name: Gabe Lema MD Position: [facility] ED Medicine MD Member Role: Admitting Physician Address: Address: [address] [place] [address] [place] [address]- [place] Name: Odette Abernathy RN Position: [facility] ED RN W/OE and Tasks Member Role: Patient Care Provider Name: Ana Lilia Willis Position: [facility] ED [address] Name: Jesse Mina RN Position: [facility] ED RN W/OE and Tasks Member Role: Patient Care Provider Care Team Related Persons Name: ALISIA PARISH Address: [address] [place] [address] Name: ALLEN PARISH Address: [address] [place] [address]
--- OUTSIDE RECORDS SUMMARY | 2023-03-24 23:35 | XMS_ITS | Continuity of Care Document ---
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 ()?? 02/13/2023 20:00 Bicarbonate Level 24 mmol/L ()?? 02/13/2023 20:00 Anion Gap 13 ()?? 02/13/2023 20:00 Glucose Level 113 mg/dL (High)?? 02/13/2023 20:00 BUN 14 mg/dL ()?? 02/13/2023 20:00 Creatinine-Blood 0.8 mg/dL ()?? 02/13/2023 20:00 Estimated GFR Creatinine 106 ML/MIN/1.73 M2 ()?? 02/13/2023 20:00 Calcium 9.3 mg/dL ()?? 02/13/2023 20:00 Magnesium 2.9 mg/dL (High)?? 02/13/2023 20:00 Protein, Total 7.0 Gm/dL ()?? 02/13/2023 20:00 Albumin 4.5 Gm/dL ()?? 02/13/2023 20:00 AG Ratio 1.8 ()?? 02/13/2023 20:00 Alkaline Phosphatase 63 units/L ()?? 02/13/2023 20:00 Lipase 18 units/L ()?? 02/13/2023 20:00 AST (SGOT) 16 units/L ()?? 02/13/2023 20:00 ALT (SGPT) 8 units/L ()?? 02/13/2023 20:00 Bilirubin, Total 0.4 mg/dL ()?? 02/13/2023 20:00 C-Reactive Protein <0.3 mg/dL ()?? 02/14/2023 01:37 ?? ENDOCRINE/TUMOR MARKER TSH 0.27 uIU/mL (Low)?? 02/13/2023 20:00 Free T4 1.11 ng/dL ()?? 02/13/2023 20:00 ?? HEME OTHER Sed Rate 4 mm/hr ()?? 02/14/2023 01:37 Hold Blue Top SPECIMEN DISCARDED AFTER 4 HOURS. ()?? 02/13/2023 20:00 ?? MISC. CHEMISTRY Hold Green Top SPECIMEN DISCARDED AFTER 1 WEEK ()?? 02/13/2023 20:00 Hold Mario Top SPECIMEN DISCARDED AFTER 1 WEEK ()?? 02/13/2023 20:00 ?? TOXICOLOGY/TDM Ethanol, Serum or Plasma NONE DETECTED mg/dL ()?? 02/13/2023 20:00 Salicylate Level 0.4 mg/dL (Low)?? 02/13/2023 22:21 Barbiturate Screen, Urine NONE DETECTED ()?? 02/14/2023 00:35 Cannabinoid Screen, Urine POSITIVE (Abnormal)?? 02/14/2023 00:35 Cocaine Metabolite Screen, Urine NONE DETECTED ()?? 02/14/2023 00:35 Benzodiazepine Screen, Urine POSITIVE (Abnormal)?? 02/14/2023 00:35 Amphetamine Screen, Urine NONE DETECTED ()?? 02/14/2023 00:35 Opiate Screen, Urine NONE DETECTED ()?? 02/14/2023 00:35 Acetaminophen Level <5 mg/L (Low)?? 02/13/2023 22:21 ?? UA/URINALYSIS Appear/Color, Urine YELLOW ()?? 02/14/2023 00:35 Specific [place], Urine >1.050 (High)?? 02/14/2023 00:35 pH, Urine 6.5 ()?? 02/14/2023 00:35 Albumin, Urine 1+ (Abnormal)?? 02/14/2023 00:35 Glucose, Urine NEGATIVE ()?? 02/14/2023 00:35 Ketones, Urine NEGATIVE ()?? 02/14/2023 00:35 Bilirubin, Urine NEGATIVE ()?? 02/14/2023 00:35 Hemoglobin, Urine NEGATIVE ()?? 02/14/2023 00:35 Nitrite, Urine NEGATIVE ()?? 02/14/2023 00:35 Leukocyte, Urine NEGATIVE ()?? 02/14/2023 00:35 Urobilinogen NORMAL mg/dL ()?? 02/14/2023 00:35 WBC's, Urine 2 /HPF ()?? 02/14/2023 00:35 RBC's, Urine 1 /HPF ()?? 02/14/2023 00:35 Squamous Epith 1 /HPF ()?? 02/14/2023 00:35 Mucus HEAVY /LPF ()?? 02/14/2023 00:35 Hold Urine Culture Testing available 48 hours from time of collection. ()?? 02/14/2023 00:35 ?? URINE OTHER Est Creatinine Clearance 125.93 mL/min ()?? 02/14/2023 08:55 ?? VIROLOGY Influenza A PCR NEGATIVE ()?? 02/13/2023 02:38 Influenza B PCR NEGATIVE ()?? 02/13/2023 02:38 RSV PCR NEGATIVE ()?? 02/13/2023 02:38 COVID-19 PCR Specimen Source NASAL ()?? 02/13/2023 02:38 COVID-19 PCR Result NEGATIVE ()?? 02/13/2023 02:38 ? CBC, CBC w/Diff?? CBC?? Differential?? WBC: 6.7 k/mm3 (20:00) Abs. Neut: 4.3 k/mm3 (20:00) RBC:??4.48 m/mm3??Low (20:00) Abs. Lymph: 1.7 k/mm3 (20:00) Hct:??39.7 %??Low (20:00) Abs. [place]: 0.6 k/mm3 (20:00) RDW-SD: 45.4 femtoliters (20:00) Abs. Eo: 0 k/mm3 (20:00) Nucleated RBC (Automated): 0 #/100 WBC'S (20:00) Abs. Baso: 0 k/mm3 (20:00) Abs. NRBC: 0 k/mm3 (20:00) Neut %: 63.9 % (20:00) ?? Lymph %: 25.4 % (20:00) ?? [place] %: 9.4 % (20:00) ?? Eos %: 0.6 % (20:00) ?? Baso %: 0.6 % (20:00) ?? Imm Gran: 0.1 % (20:00) ?? Abs. Imm Gran: 0 k/mm3 (20:00) ? BMP, Mg, and Phos Anion Gap: 13 (20:00) Bicarbonate Level: 24 mmol/L (20:00) BUN: 14 mg/dL (20:00) Calcium: 9.3 mg/dL (20:00) Chloride: 107 mmol/L (20:00) Creatinine-Blood: 0.8 mg/dL (20:00) Estimated GFR Creatinine: 106 ML/MIN/1.73 M2 (20:00) Glucose Level:??113 mg/dL??High (20:00) Magnesium:??2.9 mg/dL??High (20:00) Potassium: 4.3 mmol/L (20:00) Sodium: 144 mmol/L (20:00) ?? LFT Albumin: 4.5 Gm/dL (20:00) Alkaline Phosphatase: 63 units/L (20:00) ALT (SGPT): 8 units/L (20:00) AST (SGOT): 16 units/L (20:00) Bilirubin, Total: 0.4 mg/dL (20:00) ?? Urinalysis Albumin, Urine: 1+ Abnormal (00:35) Appear/Color, Urine: YELLOW (00:35) Bilirubin, Urine: NEGATIVE (00:35) Est Creatinine Clearance: 125.93 mL/min (08:55) Glucose, Urine: NEGATIVE (00:35) Hemoglobin, Urine: NEGATIVE (00:35) Hold Urine Culture: Testing available 48 hours from time of collection. (00:35) Ketones, Urine: NEGATIVE (00:35) Leukocyte, Urine: NEGATIVE (00:35) Mucus: HEAVY (00:35) Nitrite, Urine: NEGATIVE (00:35) pH, Urine: 6.5 (00:35) RBC's, Urine: 1 /HPF (00:35) Specific [place], Urine:??>1.050??High (00:35) Squamous Epith: 1 /HPF (00:35) Urobilinogen: NORMAL (00:35) WBC's, Urine: 2 /HPF (00:35) ? * Cheo Ontiveros MD: PERFORM Event Display: Consult Authored Date: I have seen and evaluated this patient??on the date of service and discussed the case and its management??with??the resident physician. ??I agree with the assessment and plan as documented below.? Admission evaluation note * Dion Banerjee MD: PERFORM, MODIFY, MODIFY, MODIFY, MODIFY Event Display: Admission Note Authored Date: Patient: ??BOBBY COLÓN ? Age:??52 Years?Sex:??Male?:??1970?? Chief Complaint/Reason for Consultation pt coming from home c/o insomnia and GOEL [id number]. denies SOB/CP. pt seen multiple times for same complaint. pt reports he thinks it is related to taking Cymbalta. pt was seen and d/c today at 6am. History of Present Illness This is a 52-year-old gentleman who is presenting with refractory headache. ?? He has a known pertinent past medical history of Parkinson's disease???not on any medications, seizure disorder, depression. As per patient, he has stiff right side of the body and has been given multiple medications in the past with no effect.?? Currently being followed by neurologist at [facility] for movement disordered .?? He has pain trialed with levodopa in the past for Parkinson's however states he did not help him.?? He also mentioned using Seroquel which worsened his symptoms. ?? Far as depression is concerned, no suicidal ideation.?? He has been trialed multiple medications inthe past and was recently initiated on duloxetine about 11 days ago and has not been able to sleep since then.?? As per him, he has been getting microsleep's and since last 4 days, he he has been having headache which is not resolving with any other medications at home.?? Upon further questioning, he mentions that he has used Seroquel, Valium, Tylenol for pain management at home as well as to help him sleep?? However no significant improvement this has been been accompanied by worsening neckpain/muscle spasm.?? He also had other unrelated complaints including sweating and mid back portion??only. ?? Patient also mentions??chronic insomnia for which he is tried multiple medications??and has been followed as an outpatient??however has never felt??this way. ?? He mentions using marijuana otherwise denies use of any other recreational drugs. ?? Upon presentation to the ED, was found to be in pa hemodynamically stable with BP trending at 160/90, afebrile and saturating well on room air.?? Initial lab work was grossly well within normal range.?? U tox was positive for cannabinoid and benzodiazepine.?? UA was negative.?? Influenza/RSV/COVID were negative. ?? While in the emergency department, patient received Reglan, NSAIDs, IV fluids with somewhat resolution of his headache however continues to experience significant muscle stiffness?? Hence being admitted for further observation management. ?? When I went to see the patient, he was pacing in the observation unit.?? Did not seem to be in any acute distress.?? Was able to sit down at the edge of the bed??for??history and physical??although persistently mentioned??that his left side of the neck is extremely stiff. ??By the time he received IV Dilaudid and tizanidine and mentioned that he was feeling much better. Review of Systems Negative except for as above. Objective Vital Signs?? Temperature: 97.2 DegF (02/14/23 08:51:00) Temperature Route: Oral (02/14/23 08:51:00) Pulse Rate: 82 bpm (02/14/23 08:51:00) Respiratory Rate: 18 br/min (02/14/23 12:34:00) Systolic Blood Pressure:??140 mm Hg??High (02/14/23 08:51:00) Diastolic Blood Pressure: 76 mm Hg (02/14/23 08:51:00) Blood pressure sites: Arm, right (02/14/23 08:51:00) Mean Arterial Pressure: 97 mm Hg (02/14/23 08:51:00) Pulse Pressure: 64 mm Hg (02/14/23 08:51:00) Oxygen Saturation: 100 % (02/14/23 07:57:00) Mode of Delivery (Oxygen): Room air (02/14/23 07:57:00) Early Warning Score: 2 (02/14/23 12:34:50) ? Physical Exam Constitutional: Alert, in no acute distress. Neck: Supple. No JVD. Respiratory: Clear to auscultation. No wheezing or crackles. No use of accessory muscles. Cardiovascular: S1S2 regular. No murmurs, rubs or gallops. Gastrointestinal: Abdomen soft, non-tender, non-distended. Normal bowel sounds. Extremities: No lower extremity pitting edema. No cyanosis or clubbing. Neurologic: AAOx3, Speech normal. No focal neurological deficits. Assessment/Plan Diagnoses Chronic insomnia ??(F51.04) Depression ??(F32.A) Muscle spasm ??(M62.838) Neck pain ??(M54.2) Parkinson disease ??(G20) ?? Chronic insomnia (F51.04):??Moises ruled out by psychiatry -Diazepam 2 mg tablet daily. -Zolpidem 10 mg daily at bedtime as needed -Continue with seroquel -Melatonin daily ? Depression (F32.A):??No suicidal ideation. He is initiated on??duloxetine however??experiencing significant side effects including insomnia. -Continue to hold duloxetine, do not expect withdrawal given short duration of use. -Psychiatry evaluation??requested??to rule out moises. -Antidepressant regimen needs to be discussed in detail ? Muscle spasm (M62.838):??as below ?? Neck pain (M54.2):??As per patient, significant??muscle spasm and neck pain however on examination,??muscles were symmetrical,??not stiff??or tender. Low suspicion??of meningitis given lack of fever/leukocytosis and??being easily able to flex. He also mentions having prior surgery to left shoulder??which impedes??movement of the??left upper extremity. -Start Tizanidine 4mg q8hrs -IV Dilaudid for headach only for today -Diazepam to be continued. -Resuming home Oxycontin 10 mg q12 hrly as needed ?? Parkinson disease (G20):??Not on any home medications ? VTE Prophylaxis:??Low risk, he is ambualtory ?VTE Prophylaxis Assessment:??Risk Level documented as Low Risk ?? Code Status:??Full ?Order Code Status:??Code Status Ordered ?? Ongoing Medical Necessity:??Medication management ?? Discharge Planning:? Histories Allergies Allergies ?(Active and Proposed Allergies Only) Haldol? (Severity: Unknown severity, Onset: Unknown) ? Past [...] family history recorded. ? Medications Home Medications Diazepam (diazepam 2 mg oral tablet)?2?Milligram?1?tablet?By Mouth?Daily Duloxetine (Cymbalta 20 mg oral enteric coated capsule)?1?capsule?20?Milligram?By Mouth?2 times a day Multivitamin (multivitamin Therapeutic Multiple Vitamins oral tablet)?1?tab(s)?By Mouth?Daily?for 30?Days Oxycodone (OxyCONTIN 10 mg oral tablet, extended release)?10?Milligram?1?tablet?By Mouth?Every 12 hours?for 14?Days Quetiapine (SEROquel 100 mg oral tablet)?100?Milligram?1?tablet?By Mouth?Daily atbedtime Zolpidem (zolpidem 10 mg oral tablet)?1?tab(s)?10?Milligram?By Mouth?Daily at bedtime?as needed?as needed for insomnia ? Results Recent Labs BLOOD COUNT & DIFF WBC 6.7 k/mm3 ()?? 02/13/2023 20:00 RBC 4.48 m/mm3 (Low)?? 02/13/2023 20:00 Hgb 12.8 Gm/dL (Low)?? 02/13/2023 20:00 Hct 39.7 % (Low)?? 02/13/2023 20:00 MCV 88.6 femtoliters ()?? 02/13/2023 20:00 MCH 28.6 pg ()?? 02/13/2023 20:00 MCHC 32.2 g/dL (Low)?? 02/13/2023 20:00 Platelet Count 364 k/mm3 ()?? 02/13/2023 20:00 RDW-SD 45.4 femtoliters ()?? 02/13/2023 20:00 MPV 9.4 femtoliters ()?? 02/13/2023 20:00 Nucleated RBC (Automated) 0.0 #/100 WBC'S ()?? 02/13/2023 20:00 Abs. NRBC 0.0 k/mm3 ()?? 02/13/2023 20:00 Abs. Neut 4.3 k/mm3 ()?? 02/13/2023 20:00 Abs. Lymph 1.7 k/mm3 ()?? 02/13/2023 20:00 Abs. [place] 0.6 k/mm3 ()?? 02/13/2023 20:00 Abs. Eo 0.0 k/mm3 ()?? 02/13/2023 20:00 Abs. Baso 0.0 k/mm3 ()?? 02/13/2023 20:00 Neut % 63.9 % ()?? 02/13/2023 20:00 Lymph % 25.4 % ()?? 02/13/2023 20:00 [place] % 9.4 % ()?? 02/13/2023 20:00 Eos % 0.6 % ()?? 02/13/2023 20:00 Baso % 0.6 % ()?? 02/13/2023 20:00 Imm Gran 0.1 % ()?? 02/13/2023 20:00 Abs. Imm Gran 0.0 k/mm3 ()?? 02/13/2023 20:00 ?? CHEM GENERAL Sodium 144 mmol/L ()?? 02/13/2023 20:00 Potassium 4.3 mmol/L ()?? 02/13/2023 20:00 Chloride 107 mmol/L ()?? 02/13/2023 20:00 Bicarbonate Level 24 mmol/L ()?? 02/13/2023 20:00 Anion Gap 13 ()?? 02/13/2023 20:00 Glucose Level 113 mg/dL (High)?? 02/13/2023 20:00 BUN 14 mg/dL ()?? 02/13/2023 20:00 Creatinine-Blood 0.8 mg/dL ()?? 02/13/2023 20:00 Estimated GFR Creatinine 106 ML/MIN/1.73 M2 ()?? 02/13/2023 20:00 Calcium 9.3 mg/dL ()?? 02/13/2023 20:00 Magnesium 2.9 mg/dL (High)?? 02/13/2023 20:00 Protein, Total 7.0 Gm/dL ()?? 02/13/2023 20:00 Albumin 4.5 Gm/dL ()?? 02/13/2023 20:00 AG Ratio 1.8 ()?? 02/13/2023 20:00 Alkaline Phosphatase 63 units/L ()?? 02/13/2023 20:00 Lipase 18 units/L ()?? 02/13/2023 20:00 AST (SGOT) 16 units/L ()?? 02/13/2023 20:00 ALT (SGPT) 8 units/L ()?? 02/13/2023 20:00 Bilirubin, Total 0.4 mg/dL ()?? 02/13/2023 20:00 C-Reactive Protein <0.3 mg/dL ()?? 02/14/2023 01:37 ?? ENDOCRINE/TUMOR MARKER TSH 0.27 uIU/mL (Low)?? 02/13/2023 20:00 Free T4 1.11 ng/dL ()?? 02/13/2023 20:00 ?? HEME OTHER Sed Rate 4 mm/hr ()?? 02/14/2023 01:37 Hold Blue Top SPECIMEN DISCARDED AFTER 4 HOURS. ()?? 02/13/2023 20:00 ?? MISC. CHEMISTRY Hold Green Top SPECIMEN DISCARDED AFTER 1 WEEK ()?? 02/13/2023 20:00 Hold Mario Top SPECIMEN DISCARDED AFTER 1 WEEK ()?? 02/13/2023 20:00 ?? TOXICOLOGY/TDM Ethanol, Serum or Plasma NONE DETECTED mg/dL ()?? 02/13/2023 20:00 Salicylate Level 0.4 mg/dL (Low)?? 02/13/2023 22:21 Barbiturate Screen, Urine NONE DETECTED ()?? 02/14/2023 00:35 Cannabinoid Screen, Urine POSITIVE (Abnormal)?? 02/14/2023 00:35 Cocaine Metabolite Screen, Urine NONE DETECTED ()?? 02/14/2023 00:35 Benzodiazepine Screen, Urine POSITIVE (Abnormal)?? 02/14/2023 00:35 Amphetamine Screen, Urine NONE DETECTED ()?? 02/14/2023 00:35 Opiate Screen, Urine NONE DETECTED ()?? 02/14/2023 00:35 Acetaminophen Level <5 mg/L (Low)?? 02/13/2023 22:21 ?? UA/URINALYSIS Appear/Color, Urine YELLOW ()?? 02/14/2023 00:35 Specific [place], Urine >1.050 (High)?? 02/14/2023 00:35 pH, Urine 6.5 ()?? 02/14/2023 00:35 Albumin, Urine 1+ (Abnormal)?? 02/14/2023 00:35 Glucose, Urine NEGATIVE ()?? 02/14/2023 00:35 Ketones, Urine NEGATIVE ()?? 02/14/2023 00:35 Bilirubin, Urine NEGATIVE ()?? 02/14/2023 00:35 Hemoglobin, Urine NEGATIVE ()?? 02/14/2023 00:35 Nitrite, Urine NEGATIVE ()?? 02/14/2023 00:35 Leukocyte, Urine NEGATIVE ()?? 02/14/2023 00:35 Urobilinogen NORMAL mg/dL ()?? 02/14/2023 00:35 WBC's, Urine 2 /HPF ()?? 02/14/2023 00:35 RBC's, Urine 1 /HPF ()?? 02/14/2023 00:35 Squamous Epith 1 /HPF ()?? 02/14/2023 00:35 Mucus HEAVY /LPF ()?? 02/14/2023 00:35 Hold Urine Culture Testing available 48 hours from time of collection. ()?? 02/14/2023 00:35 ?? URINE OTHER Est Creatinine Clearance 125.93 mL/min ()?? 02/14/2023 08:55 ?? VIROLOGY Influenza A PCR NEGATIVE ()?? 02/13/2023 02:38 Influenza B PCR NEGATIVE ()?? 02/13/2023 02:38 RSV PCR NEGATIVE ()?? 02/13/2023 02:38 COVID-19 PCR Specimen Source NASAL ()?? 02/13/2023 02:38 COVID-19 PCR Result NEGATIVE ()?? 02/13/2023 02:38 ? EKG study * Event Display: ECG 12-Lead Authored Date: Please click on pdf link to open report * Event Display: ECG 12-Lead Authored Date: Ventricular Rate: 95 BPM Atrial Rate: 95 BPM P-R Interval: 150 ms QRS Duration: 100 ms Q-T Interval: 386 ms QTC Calculation(Bazett): 485 ms P Kathryn: 46 degrees R Kathryn: 45 degrees T Kathryn: 59 degrees Normal sinus rhythm Prolonged QT Abnormal ECG When compared with ECG of 11-JAN-2023 20:54, No significant change was found Conf[id number] on 02/14/2023 9:51:37 AM [place]: [facility] Progress note * Cece Braga RN: PERFORM, SIGN, VERIFY Event Display: Progress Note Hospital Authored Date: Patient: BOBBY COLÓN Age: 52 years Sex: Male : 1970 Associated Diagnoses: None Author: Cece Braga RN Findings Narrative/Incidental Patient asked to leave AMA. Covering provider Herbert Hector notified at 1830. IV removed prior to discharge. Patient signed the AMA form and left the unit ambulatory at 1900. . Discharge Information Case Management Discharge Plan : Case Management Discharge Plan Data 02/13/2023 6:46 EST Discharge Level of Care at Discharge Home/Senior Care/Foster Care Patient Care team information Care Team Personnel Name: Preethi Jaramillo RN Position: [facility] RN Member Role: Primary Care Nurse Name: Thaddeus Ni RN Position: [facility] RN Member Role: Primary Care Nurse Name: Nuria Reyna RN Position: [facility] RN Member Role: Primary Care Nurse Name: Yesica Carmen RN Position: [facility] RN Member Role: Primary Care Nurse Name: Not on Staff, PCP Position: [facility] Physician (General Medicine) Member Role: PCP Name: Adriano Duque RN Position: [facility] RN Member Role: Primary Care Nurse Name: Shamika Carpenter RN Position: [facility] RN Member Role: Primary Care Nurse Name: Velia JIMENEZ Attending Position: [facility] ED Medicine MD Name: Lay Otto RN Position: [facility] ED RN W/OE and Tasks Member Role: Patient Care Provider Name: Leodan Ritter Position: S ED TA [facility] Name: Fiorella RN, Philip Position: [facility] ED RN W/OE and Tasks Member Role: Patient Care Provider Care Team Related Persons Name: SUNITHA PARISH Address: [address] [place] [address] Name: ALLEN PARISH Address: [address] [place] [address]
[2023-03-25 01:03] VITALS: BMI 22.5
[2023-03-25] MEDS: diazePAM 5 MG TABLET PO ×2 (01:36→20:04)
[2023-03-25] MEDS: oxyCODONE HCl ER 10 MG TAB.ER.12H PO (01:51)
[2023-03-25] MEDS: Imipramine HCl 50 MG TABLET PO (01:52)
--- NOTE | 2023-03-25 03:41 | PC.NURSE ---
AT 0335, PT USED A BATHROOM NOT ASSIGNED TO HIM. WHEN PT WAS ADVISED TO USE THE BATHROOM IN HIS ASSIGNED ROOM, PT YELLED AT RN ILL USE WHATEVER THE FUCK BATHROOM I WANT. RUSSEL COTTER SPEAK TO ME LIKE IM A THIRD GRADER. WHAT? ARE YOU GOING TO PUT ME IN THE CORNER NOW? RUSSEL COTTER TALK TO ME . PT THEN SLAMMED HIS ELBOW INTO THE WINDOW OF THE KITCHEN, STATING I HAVE EVER RIGHT TO FUCKING BE ANGRY. I DONT BELONG HERE .
--- NOTE | 2023-03-25 03:49 | PC.ADMIT ---
Patient is a 63 yr old male who presented as a hospital to hospital transfer from [facility] to [facility] Behavioral health unit on M5. Patient intially refused to sign a CV but changed his mind after being taken down to the ED and expressing his anger about being here. He is currently on M5 but refusing care. He states I shouldn't be here . He states he went to [facility] for something totally unrelated to psych and now he is here. He will not tell anyone what he initially presented for. He states I don't deserve this I am being punished you made a bad situation worse . He is very upset and has outbursts. He states he has not slept in 6 or 7 days. He states he doesn't trust anyone but especially the Psychiatrists and that he has tardive dystonia because of the meds the psychiatrists gave him. The patient is irrational and negative. His mood is labile, and states he is pissed off and has every right to be . He had a few moments of being calm and teary eyed but also a couple outbursts where he hit the plexiglass window outside of the kitchen with his hand. Patient refused vitals, refused to discuss his situation and refused to sign any paperwork. He also is refusing to be shown to his room. He is resisting all care. The patient did not get or refused any medications at [facility] but was asking for them here. He provided very limited information on what medications he is on or what he needed but he did state oxycodone, diazepam, and imipramine, all of which were ordered and administered. About an hour after the oxy was administered, he states he takes two of them. Patient did bring up a hx of a fall where he broke his spine in 5 places. He is currently adversarial and refusing to attempt to sleep. He did mention he has BRUNO and uses CPAP at home. Limited information coming out the more he speaks. Will continue to monitor behavior overnight and continue care with the behavioral health team in the morning.
[2023-03-25 07:00] VITALS: BMI 23.2
[2023-03-25 08:00] VITALS: BP 130/72; PULSE 83; RESP 18; TEMP 36.4; O2SAT 99
[2023-03-25 08:55] LABS: Alanine Aminotransferase 13 U/L (0-40); Albumin Level 3.8 g/dL (3.5-5.0); Alkaline Phosphatase 48 U/L (39-117); Anion Gap 12 (12-20); Aspartate Amino Transferase 14 U/L (5-37); Bilirubin Total 0.1 mg/dL (0.0-1.0); Blood Urea Nitrogen 25 mg/dL (9-16); Calcium 8.9 mg/dL (8.4-10.2); Carbon Dioxide 29 mmol/L (22-29); Chloride 107 mmol/L (96-108); Cholesterol 140 mg/dL (<200); Creatinine Clr Calc Pharmacy 105.5; Estimated Glomerular Filt Rate > 60; Glucose Fasting 122 mg/dL (60-99); HDL Cholesterol 61 mg/dL (>40); LDL Cholesterol Calculated 68 mg/dL (<100); Potassium 4.3 mmol/L (3.3-5.1); Sodium 144 mmol/L (135-145); Total Protein 6.3 g/dL (6.5-8.0); Triglycerides 56 mg/dL (<150)
[2023-03-25] MEDS: oxyCODONE HCl Immed Release 5 MG TABLET 10 MG PO ×2 (10:20→19:38)
--- NOTE | 2023-03-25 11:29 | HO.PM.IMCN ---
History of Present Illness Data of Consult Service Date: 03/25/23 Primary Care Provider: Unknown Physician HPI Reason for consult: Admission H&P Pt is a 52-year-old male with a PMH significant for?HTN, PTSD, and depression who is admitted to M5 psychiatry unit for increased depression and decreased sleep. Patient apparently has been feeling especially hopeless and helpless the past few days. Medical consult for admission H&P. Patient declines interview and examination when asked. Patient states ?there is nothing to examine here?. When asked, patient denies any acute medical complaints at this time. ?Labs reviewed, a grossly unremarkable. Vitals WNL. Review of Systems Review of Systems: Patient has no acute medical complaints at this time [facility] Medical History PTSD (post-traumatic stress disorder) Back pain Social History Household Members: Unknown / Unable to assess Housing: Unknown / Unable to assess Unable to assess alcohol history related to: Refusing to respond Patient Tobacco Use Status: Former Tobacco user Tobacco use type: Cigarette Smoked in Last 30 Days: Yes Patient Interested in Nicotine Replacement: Yes Patient Given Instructions on How to Stop Smoking: No (didnt participate in admission) Use of substances other than those prescribed or required for medical reasons: Refusing to respond Currently Displaying Signs/Symptoms of Drug Intoxication Withdrawal: No Spiritual Healthcare Practices: unknown Restorationist Healthcare Practices: unknown Cultural Healthcare Practices: unknown Advance Directives: No Advance Directives Information Provided: Yes Do you have thoughts of harming others: None Do you have a plan to hurt others: No Plan Recently lost weight without trying: No Nutrition Risks: No Nutritional Risk Poor oral hygiene: No service: No Sexual orientation: Straight/Heterosexual Meds Allergies Allergy/AdvReac Type Severity Reaction Status Date / Time haloperidol [From Haldol] Allergy Unknown Unknown Unverified 03/24/23 23:56 quetiapine [From Seroquel] Allergy Unknown Unknown Verified 03/24/23 23:56 Active Medications: Current Medications Acetaminophen (Acetaminophen 325 Mg Tablet) 650 mg PO Q6H PRN PRN Reason: Headache/Pain Mild Scale (1-3) Al Hydroxide/Mg Hydroxide (Magnesium Hydrox/Alum Hydrox 30 Ml Oral.Susp) 30 ml PO Q6H PRN PRN Reason: Heartburn/Nausea Diazepam (Diazepam 5 Mg Tablet) 5 mg PO BEDTIME HUNTER Hydroxyzine HCl (Hydroxyzine Hcl 25 Mg Tablet) 25 mg PO Q6H PRN PRN Reason: Anxiety Imipramine HCl (Imipramine Hcl 50 Mg Tablet) 50 mg PO BEDTIME HUNTER Magnesium Hydroxide (Milk Of Magnesia 30 Ml Oral.Susp) 30 ml PO DAILY PRN PRN Reason: Constipation Oxycodone HCl (Oxycodone Hcl Immed Release 5 Mg Tablet) 10 mg PO Q8H PRN PRN Reason: Pain, Moderate(Pain Scale 4-6) Last Admin: 03/25/23 10:20 Dose: 10 mg Propranolol HCl (Propranolol Hcl 40 Mg Tablet) 40 mg PO BID PRN; Protocol PRN Reason: Breakthrough Pain Trazodone HCl (Trazodone Hcl 50 Mg Tablet) 50 mg PO BEDTIME MRX1 PRN PRN Reason: Insomnia Home Medications Medication Instructions Recorded Confirmed Last Taken Type diazepam 5 mg tablet 5 mg PO BEDTIME 03/25/23 03/25/23 Unknown History oxycodone 10 mg tablet 10 mg PO Q8H PRN pain 03/25/23 03/25/23 Unknown History propranolol 40 mg tablet 40 mg PO BID PRN Breakthrough Pain 03/25/23 03/25/23 Unknown History Physical Exam Vital Signs and Narrative: Vital Signs: Last Vital Signs Temp 97.6 F 03/25/23 08:00 Pulse 83 03/25/23 08:00 Resp 18 03/25/23 08:00 BP 130/72 03/25/23 08:00 Pulse Ox 99 03/25/23 08:00 O2 Del Method Room Air 03/25/23 08:00 BMI result Body Mass Index 23.2 Patient declined physical examination Results Labs 03/25/23 08:31 Labs: Laboratory Results - last 24 hr 03/25/23 08:31 Anion Gap 12 Estim Creat Clear Calc 105.5 Estimated GFR > 60 Fasting Glucose 122 H Calcium 8.9 Total Bilirubin 0.1 AST 14 ALT 13 Alkaline Phosphatase 48 Total Protein 6.3 L Albumin 3.8 Triglycerides 56 Cholesterol 140 LDL Cholesterol, Calc 68 HDL Cholesterol 61 Assessment and Plan (1) Medical clearance for psychiatric admission: Status: Acute Plan Pt is a 52-year-old male with a PMH significant for?HTN, PTSD, and depression who is admitted to psychiatry unit for increased depression and decreased sleep. Patient apparently has been feeling especially hopeless and helpless the past few days. Medical consult for admission H&P. Patient declines interview and examination when asked. Mood disorder Plan as per Psychiatry HTN Continue propranolol Patient otherwise has no known chronic conditions or acute medical complaints at this time. Thank you for allowing us to participate in the care of this patient. Signing off at this time. Please re-consult if any acute complaints or issues arise.
[2023-03-25 13:44] VITALS: BP 126/70; PULSE 94
[2023-03-25] MEDS: Propranolol HCL 40 MG TABLET PO (13:44)
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
[2023-03-25] MEDS: hydrOXYzine HCL 25 MG TABLET PO (16:34)
[2023-03-25] MEDS: Acetaminophen 325 MG TABLET 650 MG PO ×2 (16:34→23:42)
[2023-03-25 19:35] VITALS: BP 111/74; PULSE 114; RESP 18; TEMP 36.6; O2SAT 96
[2023-03-26] MEDS: oxyCODONE HCl Immed Release 5 MG TABLET 10 MG PO (03:40)
[2023-03-26] MEDS: LORazepam 1 MG TABLET PO ×2 (03:43→08:46)
--- NOTE | 2023-03-26 03:43 | PC.NURSE ---
Per MD Durham ok to give PT 1mg Ativan for agitation without the Zyprexa, one time now.
[2023-03-26] MEDS: Acetaminophen 325 MG TABLET 650 MG PO (08:46)
[2023-03-26] MEDS: hydrOXYzine HCL 25 MG TABLET PO (08:46)
[2023-03-26 08:51] VITALS: BP 121/78; PULSE 93; TEMP 36.2; O2SAT 98
--- NOTE | 2023-03-26 10:22 | PM.PSYDC ---
DS: Providers Provider Date of Service: 03/26/23 Date of admission: 03/24/23 23:29 Date of discharge: 03/26/23 Primary care physician: Unknown Physician Admitting clinician: Neida Rg Attending physician on admission: Fred Cedillo Consults: 03/25/23 09:49 Consult to Hospitalist Routine Comment: Consulting Provider: Hospitalist Reason For Exam: Transfer 03/25/23 17:43 Consult to Psychiatry Routine Consulting Provider: Fred Cedillo Reason for consultation: Seen 11/17/22 for TMS eval, In pt, M5, Dep/SI, asks to leave, refuses rx. Has provider been notified: Yes Attending physician on discharge: Fred Cedillo Discharging clinician: Neida Rg DS: Diagnosis Discharge Diagnosis (1) Medical clearance for psychiatric admission: Status: Acute DS: Medications Discharge Medications Home Medications: Home Medications Medication Instructions Recorded Confirmed diazepam 5 mg tablet 5 mg PO BEDTIME 03/25/23 03/25/23 oxycodone 10 mg tablet 10 mg PO Q8H PRN pain 03/25/23 03/25/23 propranolol 40 mg tablet 40 mg PO BID PRN Breakthrough Pain 03/25/23 03/25/23 Mental Status Exam Mental Status Exam Patient Appearance: Appropriate Patient Orientation: Person, Place, Time and Situation Level of Consciousness: Alert Patient Behavior: Guarded, Talkative, Suspicious, Restless, Belligerent, Anxious, Resistive to Care, Avoidant, Good Eye Contact and Uncooperative Mood Description: Suspicious, Depressed, Hostile and Angry Affect Description: Hostile and Angry Patient Cognition Impaired: No Ability to Follow Directions: Fair Speech Pattern: Perseverating and Spontaneous Speech Memory Description: Episodic Impaired Hallucinations: None Delusions: Being Controlled Perceptual Disturbances: Depersonalization and Derealization Thought Process: Distracted and Evasive Thought Content: positive for Circumstantial and positive for Perseveration Depressive Symptoms: Insomnia, Increased Irritability, Difficulty Sleeping and Thoughts of /Suicide (denies, tells [facility] of SI) Abnormal Motor Activity Signs and Symptoms: Agitation and Restlessness Judgement: Fair Data Data Completed and Pending Completed studies during hospitalization [Text1]: 03/25/23 08:31 Sodium 144 Potassium 4.3 Chloride 107 Carbon Dioxide 29 Anion Gap 12 BUN 25 H Creatinine 0.93 Estim Creat Clear Calc 105.5 Estimated GFR > 60 Fasting Glucose 122 H Calcium 8.9 Total Bilirubin 0.1 AST 14 ALT 13 Alkaline Phosphatase 48 Total Protein 6.3 L Albumin 3.8 Triglycerides 56 Cholesterol 140 LDL Cholesterol, Calc 68 HDL Cholesterol 61 DS: Summary Hospital Course Hospital Course: Admission to adult psychiatry in transfer from [facility] for increase in sx of recurrent major depression, PTSD, back pain. Pt placed a three day notice upon admit and was declining of all interventions. He reports [facility] took a medical issue and made it a psychiatric issue. Pt was discharged after meeting with Dr. Cedillo, whom he has met with in the past. Status at Discharge Functional status at discharge: independent ambulation Overall status at discharge: patient is back to baseline Time Spent with Patient Time attestation: Total time managing care of this patient today ____ minutes. Time spent: Less than 30 minutes Discharge Plan Discharge Anticipated Discharge Date/Time: 03/26/23 12:00 Patient Disposition: Home, Self-Care Discharge Diagnosis: PTSD Recurrent Major Depression Back Pain Referrals: Dr. Dom Sommers: [facility] [Other] - 1 Week (Hospital Discharge Appointment Patient should follow-up with therapist after discharge to obtain appointment date and time.) Nadja Magana: [facility] [Other] - 04/21/23 12:00 pm (Hospital Discharge Appointment Appointment is in person with psychiatric medication provider.) [Other] - 1 Week (call and follow up with primary care) Discharge Medications: Continued diazepam 5 mg tablet 5 mg PO BEDTIME oxycodone 10 mg tablet 10 mg PO Q8H PRN (Reason: pain) propranolol 40 mg tablet 40 mg PO BID PRN (Reason: Breakthrough Pain) Discontinued imipramine HCl 50 mg tablet 50 mg PO BEDTIME Discharge Orders: Discharge Order (Routine); Ordered 03/26/23 Ordered By: Neida Rg Diet: Advance to usual diet Activity on Discharge: As tolerated Stand Alone Forms: Patient Portal Discharge page, Community Support Care Plan Goals: Mood and Behavioral Stabilization Health Concerns: Mood and Behavioral Stabilization Plan of Treatment: Attend scheduled appointments Take medications as directed Assessment: Discharge via three day notice. Pt requested discharge upon admission, and was asked to formalize his intent to leave via the three day notice. Discharge Date/Time: 03/26/23 10:55
== END 2023-03-26 10:55 | disposition home or self-care (01) | DRG 885 ==
PROVIDERS: Psychiatry & Neurology Psychiatry; Admitting Provider Psychiatry & Neurology Psychiatry; Visit Provider Clinical Nurse Specialist Psychiatric/Mental Health, Adult
DX: F33.2 Major depressive disorder, recurrent severe without psychotic features (principal); F43.10 Post-traumatic stress disorder, unspecified; I10 Essential (primary) hypertension; I25.10 Atherosclerotic heart disease of native coronary artery without angina pectoris; G20.A1 Parkinson's disease without dyskinesia, without mention of fluctuations; M54.9 Dorsalgia, unspecified; Z87.891 Personal history of nicotine dependence; Z79.899 Other long term (current) drug therapy
CPT/HCPCS: 36415; 80053; 80061

== ENCOUNTER → 2023-03-24 23:29 | Outpatient (BNV) | payer MEDICARE, MEDICAID, SELFPAY | PROVIDERS: Admitting Provider Psychiatry & Neurology Psychiatry; Visit Provider Clinical Nurse Specialist Psychiatric/Mental Health, Adult | DX: F33.2 Major depressive disorder, recurrent severe without psychotic features (principal); F43.11 Post-traumatic stress disorder, acute | CPT/HCPCS: 90792; 99238 ==

== ENCOUNTER → 2023-03-24 23:29 | Outpatient (BNV) | payer MEDICARE, MEDICAID, SELFPAY | PROVIDERS: Admitting Provider Psychiatry & Neurology Psychiatry; Visit Provider Student in an Organized Health Care Education/Training Program | DX: Z02.2 Encounter for examination for admission to residential institution (principal) | CPT/HCPCS: 99429 ==